=== PATIENT | female | born 1940 | race Caucasian/White ===

== ENCOUNTER 2020-02-14 08:13 | Outpatient (CLI) | payer MEDICARE, SELFPAY ==
--- NOTE | ~2020-02-14 | MM_ITS ---
EXAMINATION: MM screening [facility] BI w [facility] HISTORY: Screening mammogram TECHNIQUE: Craniocaudal and mediolateral oblique 3-D tomosynthesis images were obtained and synthetic 2-D images were generated. CAD analysis was submitted and interpreted. COMPARISON: 01/20/2019, 01/12/2018, 01/07/2017, 12/14/2014, 11/16/2012 bilateral digital screening mammogr am examinations BREAST PARENCHYMAL COMPOSITION: There are scattered areas of fibroglandular density. FINDINGS: There is stable fibroglandular asymmetry including a stable area of irregularity in the out er mid right breast. No interval suspicious mass, architectural distortion, malignant calcification, skin thickening or re traction or significant new or developing density is detected. IMPRESSION: 1. No mammographic evidence of malignancy. 2. Recommend routine screening mammography in one year. BI-RADS Category 2: Benign finding(s). Reviewed, dictated and finalized at location A.
== END 2020-02-14 08:14 | disposition home or self-care (01) ==
PROVIDERS: PCP Internal Medicine; Visit Provider Family Medicine
DX: Z12.31 Encounter for screening mammogram for malignant neoplasm of breast (principal)
CPT/HCPCS: 77063; 77067

== ENCOUNTER 2021-04-03 08:46 | Outpatient (CLI) | payer MEDICARE, SELFPAY ==
--- NOTE | ~2021-04-03 | MM_ITS ---
EXAMINATION: MM screening [facility] BI w [facility]a HISTORY: Screening TECHNIQUE: Craniocaudal and mediolateral oblique 3-D tomosynthesis images were obtained and synthetic 2-D images were generated. CAD analysis was submitted and interpreted. COMPARISON: Comparison to multiple prior studies sequentially, with oldest reviewed study dated 12/14. BREAST PARENCHYMAL COMPOSITION: There are scattered areas of fibroglandular density. FINDINGS: There is no evidence of suspicious mass, calcification, or architectural distortion to sugg est malignancy in either breast. There has been no suspicious interval change. IMPRESSION: 1. No mammographic evidence of malignancy. 2. Recommend routine screening mammography in one year. BI-RADS Category 1: Negative Reviewed, dictated and finalized at location A.
== END 2021-04-03 08:47 | disposition home or self-care (01) ==
PROVIDERS: PCP Family Medicine; Visit Provider Family Medicine
DX: Z12.31 Encounter for screening mammogram for malignant neoplasm of breast (principal)
CPT/HCPCS: 77063; 77067

== ENCOUNTER 2021-07-24 12:38 | Outpatient (CLI) | payer MEDICARE, SELFPAY ==
--- NOTE | ~2021-07-24 | DEXA_ITS ---
Bone Density Report Name: Maya Reaves Age: 81 Sex: Female Ethnicity: White Date of : 1940 Indication: osteopenia; height loss; postmenopausal Referring Provider: Rose Marie Oliver Study: Bone densitometry was performed. Exam Date: July 24, 2021 Accession number: [id number] Bone Density: Region BMD T-score Z-score Classification AP Spine (L1, L2) 0.854 -1.1 1.5 Osteopenia Femoral Neck (Left) 0.630 -2.0 0.4 Osteopenia Total Hip (Left) 0.769 -1.4 0.8 Osteopenia Total Hip Bilateral Avg 0.804 -1.1 1.1 Osteopenia Femoral Neck (Right) 0.624 -2.0 0.4 Osteopenia Total Hip (Right) 0.837 -0.9 1.3 Normal World Health Organization criteria for BMD impression classify patients as: Normal (T-score at or above -1.0), Osteopenia (T-score between -1.0 and -2.5), or Osteoporosis (T-score at or below -2.5). 10-year Fracture Risk(1): Major Osteoporotic Fracture 16% Hip Fracture 4.8% Reported Risk Factors: [place] (), Neck BMD=0.624, BMI=29.4 (1) FRAX(R) Version 3.08. Fracture probability calculated for an untreated patient. Fracture probability may be lower if the patient has received treatment. Previous Exams: Region Exam Age BMD T-score BMD Change BMD Change Date g/cm2 vs Baseline vs Previous AP Spine(L1, L2) 07/24/2021 81 0.854 -1.1 0.017(2.1%)# 0.017(2.0%) 01/12/2018 77 0.837 -1.3 0.000(0.1%)# -0.028(-3.3%)# 09/30/2012 72 0.865 -1.0 0.029(3.4%)# 0.026(3.1%)# 09/29/2010 70 0.839 -1.3 0.002(0.3%) 0.059(7.6%)* 09/27/2008 68 0.780 -1.8 -0.057(-6.8%)* -0.028(-3.5%)* 05/27/2004 64 0.808 -1.6 -0.029(-3.4%)* -0.041(-4.9%)* 03/14/2002 62 0.849 -1.2 0.013(1.5%) 0.013(1.5%) 03/14/2002 62 0.836 -1.3 Total Hip(Left) 07/24/2021 81 0.769 -1.4 -0.066(-7.9%)# -0.070(-8.3%)* 01/12/2018 77 0.839 -0.8 0.004(0.5%)# -0.082(-8.9%)# 09/30/2012 72 0.921 -0.2 0.086(10.4%)# 0.034(3.9%)# 09/29/2010 70 0.887 -0.5 0.052(6.2%)* 0.013(1.4%) 09/27/2008 68 0.874 -0.6 0.039(4.7%)* 0.042(5.1%)* 05/27/2004 64 0.832 -0.9 -0.003(-0.3%) -0.003(-0.3%) 03/14/2002 62 0.835 -0.9 Total Hip(Right) 07/24/2021 81 0.837 -0.9 -0.033(-3.8%)# -0.013(-1.5%) 01/12/2018 77 0.850 -0.8 -0.020(-2.3%)# -0.051(-5.7%)# 09/30/2012 72 0.901 -0.3 0.031(3.6%)# -0.028(-3.1%)# 09/29/2010 70 0.930 -0.1 0.060(6.9%)* 0.038(4.2%)* 09/27/2008 68 0.892 -0.4 0.022(2.5%) 0.025(2.8%) 05/27/2004 64 0.868 -0.6 -0.002(-0.3%) -0.002(-0.3%) 03/14/2002 62 0.870 -0.6
== END 2021-07-24 12:39 | disposition home or self-care (01) ==
LOC: ANHIMG 12:42
PROVIDERS: PCP Family Medicine; Visit Provider Nurse Practitioner
DX: Z78.0 Asymptomatic menopausal state (principal); M85.88 Other specified disorders of bone density and structure, other site; M85.852 Other specified disorders of bone density and structure, left thigh; M85.851 Other specified disorders of bone density and structure, right thigh
CPT/HCPCS: 77080

== ENCOUNTER 2022-05-19 08:28 | Outpatient (CLI) | payer MEDICARE, SELFPAY ==
[2022-05-19 19:58] LABS: Alanine Aminotransferase 25 U/L (6-35); Albumin Level 4.4 g/dL (3.5-5.1); Alkaline Phosphatase 44 U/L (38-126); Anion Gap 11 mmol/L (8-16); Aspartate Amino Transferase 72 U/L (14-36); Bilirubin,Total 0.5 mg/dL (0.2-1.3); Blood Urea Nitrogen 17 mg/dL (7-17); Calcium 9.1 mg/dL (8.4-10.2); Carbon Dioxide 25 mmol/L (22-30); Chloride 99 mmol/L (98-107); Cholesterol 182 mg/dL (0-200); Estimated Glomerular Filt Rate > 60; Glucose 82 mg/dL (65-110); HDL Direct 69 mg/dL; Potassium 3.9 mmol/L (3.4-5.0); Sodium 135 mmol/L (137-145); Triglycerides 159 mg/dL (<150)
[2022-05-19 20:09] LABS: LDL Cholesterol Direct 86 mg/dL
[2022-05-19 20:15] LABS: Basophils Absolute Auto 0.1 K/mm3 (0.0-0.1); Basophils Percent Auto 0.7 % (0.2-1.2); Eosinophils Absolute Auto 0.3 K/mm3 (0-0.3); Eosinophils Percent Auto 2.9 % (0-4.4); Hematocrit 42.3 % (37.0-47.0); Hemoglobin 13.2 g/dL (12.0-15.0); Immature Granulocyte Absolute 0.09 K/mm3 (0.00-0.031); Immature Granulocyte Percent A 0.8 % (0-0.5); Lymphocytes Absolute Auto 4.01 K/mm3 (0.9-3.2); Lymphocytes Percent Auto 37.4 % (18.3-44.2); Mean Corpuscular HGB Conc 31.2 g/dl (32-36); Mean Corpuscular Hemoglobin 30.4 pg (26-34); Mean Corpuscular Volume 97.5 fl (80-100); Monocytes Absolute Auto 0.9 K/mm3 (0.1-0.6); Neutrophils Absolute Auto 5.4 K/mm3 (1.3-6.7); Neutrophils Percent Auto 50.2 % (45.5-73.1); Platelet Count Result 315 k/mm3 (150-375); Red Blood Count 4.34 M/mm3 (4.2-5.4); Red Cell Distribution Width 13.9 % (11.5-14.5); White Blood Count 10.7 K/mm3 (4.5-10.0)
[2022-05-19 20:21] LABS: Vitamin D 25 Hydroxy 50.6 ng/mL
== END 2022-05-19 08:29 | disposition home or self-care (01) ==
LOC: ANHGOSHLAB 08:33
PROVIDERS: PCP Family Medicine; Visit Provider Nurse Practitioner
DX: E55.9 Vitamin D deficiency, unspecified (principal); E53.8 Deficiency of other specified B group vitamins; I10 Essential (primary) hypertension; E78.5 Hyperlipidemia, unspecified
CPT/HCPCS: 36415; 80053; 80061; 82306; 82607; 85025

== ENCOUNTER 2022-05-27 13:42 | Outpatient (CLI) | payer MEDICARE, SELFPAY ==
--- NOTE | ~2022-05-27 | MM_ITS ---
EXAMINATION: MM screening [facility] BI w ilsa HISTORY: Screening mammogram TECHNIQUE: Craniocaudal and mediolateral oblique 3-D tomosynthesis images were obtained and synthetic 2-D images were generated. CAD analysis was submitted and interpreted. COMPARISON: 04/03/2021, 02/14/2020, 01/20/2019, 01/12/2018 BREAST PARENCHYMAL COMPOSITION: There are scattered areas of fibroglandular density. FINDINGS: Again noted are stable asymmetries in the breasts. No suspicious mass, calcification, or ar chitectural distortion are identified in either breast to suggest malignancy. There has been no suspi cious interval change. IMPRESSION: 1. No mammographic evidence of malignancy. 2. Recommend routine screening mammography while the patient remains in good health. BI-RADS Category 2: Benign finding(s). Reviewed, dictated and finalized at location A. IMPRESSION: 1. No mammographic evidence of malignancy. 2. Recommend routine screening mammography while the patient remains in good he alth. BI-RADS Category 2: Benign finding(s).
== END 2022-05-27 13:43 | disposition home or self-care (01) ==
PROVIDERS: PCP Family Medicine; Visit Provider Nurse Practitioner
DX: Z12.31 Encounter for screening mammogram for malignant neoplasm of breast (principal)
CPT/HCPCS: 77063; 77067

== ENCOUNTER 2022-08-31 10:18 | Outpatient (CLI) | payer MEDICARE, SELFPAY ==
--- NOTE | 2022-08-31 10:44 | ECG_ITS ---
Measurements Intervals [place] Rate: 66 P: 31 NM: 166 QRS: -44 QRSD: 135 T: 104 QT: 415 QTc: 435 Interpretive Statements SINUS RHYTHM LEFT AXIS DEVIATION EFT BUNDLE BRANCH BLOCK BASELINE ARTIFACT- I, II, III, AVR, AVL, AVF ABNORMAL ECG NO PREVIOUS ECG AVAILABLE FOR COMPARISON Electronically Signed On 08-31-2022 11:11:53 WATCH AND CLOCK REPAIRER by Marquise Maddox D.O.
== END 2022-08-31 10:19 | disposition home or self-care (01) ==
PROVIDERS: PCP Nurse Practitioner; Visit Provider Orthopaedic Surgery
DX: I10 Essential (primary) hypertension (principal); Z01.818 Encounter for other preprocedural examination; I44.7 Left bundle-branch block, unspecified
CPT/HCPCS: 93005

== ENCOUNTER 2022-09-07 01:05 | Day surgery (SDC) | payer MEDICARE, SELFPAY ==
[2022-08-26 10:45] VITALS: BMI 27.5
--- NOTE | 2022-08-26 10:53 | PC.NURSE ---
Report to the Outpatient Waiting Room, entrance under the green pavilion located off [facility], at time 10:30AM on date 09-07-22. Planned Procedure Time: 12:30AM. Time changes happen often and if your time is changed the preop area will call you the afternoon before. - You and your visitor will be asked to self-screen and do not enter if you have any COVID symptoms. - Only one visitor is requested with a max of two and NO children visitors are allowed at this time. - The patient visitor may be requested to leave or wait in car when not with patient due to distancing restrictions. - A mask is optional within the hospital. Patients may have clear liquids (water, carbonated beverages, clear teas, apple juice) until 3 hours prior to surgery (09:30AM) with a maximum of 20 ounces. - No food from midnight until time of surgery Take the following medications with a SIP of water the morning of surgery: VERAPAMIL Medications to discontinue per physician: VITAMINS Date to take last dose 09-03-22 Please no make-up, nail faroese, hairspray, perfume, deodorant, or body powder the day of surgery. No jewelry (including any body piercings) or valuables the day of surgery, leave them at home. Please take a shower or bath the night before, or the morning of, surgery with an antibacterial soap. Wear comfortable, loose fitting clothing. - Jewelry must be removed prior to entering the operating room. Rings and piercings that are not removed may be cut off. - The hospital will not accept responsibility for valuables. - Please leave all valuables, including medications, at home the day of surgery. If you are going home after surgery, a licensed armor reconnaissance vehicle driver must drive you home. - NO public transportation without another adult if you receive anesthesia. - We recommend that an adult stay with you for 24 hours following discharge. - We also recommend that you do not drive, make important decision, drink alcoholic beverages, or take any drugs that were not prescribed by your health care provider for at least 24 hours after your discharge time. Follow any additional instructions given to you from your surgeon. If you or anyone in your household have experienced Covid symptoms in the past week, please notify your surgeon or the nurse liaison at the phone number below for possible testing. Telephone instructions given to PATIENT and asked if any additional questions and then verbalized understanding. Patient advised to call surgeon office or pre surgery nurse liaison [phone] if any additional questions.
--- NOTE | 2022-09-07 11:53 | WPDANESEPPF ---
Anes - Initial Pre Proc Eval Procedure: Operation Date: 09/07/22 14:00 Proposed Procedures p Right Fourth Trigger Finger Release - Eder Spicer MD Date/Time: 09/07/22 11:53 Surgeon: Eder Spicer MD Pre Op Diagnosis: Rt Fourth Trigger Finger Patient Data Age: 82 Gender: F Height: 1.52 m Weight: 64 kg Allergies Allergy/AdvReac Type Severity Reaction Status Date / Time No Known Allergies Allergy Unknown Verified 09/07/22 12:38 Home Medications Medication Instructions Recorded Confirmed Type cholecalciferol (vitamin D3) 25 25 mcg PO DAILY 11/28/19 08/26/22 History mcg (1,000 unit) capsule lactobacillus combination no.4 3 3,000 mmu cells PO DAILY 05/14/21 08/26/22 History billion cell capsule (Probiotic) verapamil 180 mg tablet,extended 180 mg PO DAILY #90 tabs 12/17/21 08/26/22 Rx release (Calan SR) simvastatin 10 mg tablet 10 mg PO DAILY #90 tabs 08/11/22 08/26/22 Rx budesonide 3 mg 3 mg PO DAILY #30 ea 08/13/22 08/26/22 Rx capsule,delayed,extended release losartan 50 mg tablet 50 mg PO DAILY #90 tabs 08/25/22 08/26/22 Rx calcium carb-Ca gluc 500 mg 1 tablet PO DAILY 08/26/22 08/26/22 History calcium-magnesium ox-Mg gluc 250 mg tablet (Calcium Magnesium) Patient hx anesthesia problems: none Family hx anesthesia problems: none Results Review: All pre-operative results and documents have been reviewed as part of the pre-operative evaluation. [facility] Past Medical History Medical History (Updated 08/20/22 @ 08:19 by Eder Spicer MD) Cataract Chronic allergic rhinitis Collagenous colitis Constipation, chronic Hyperlipidemia LDL goal <100 Hypertension Joint swelling Osteoarthritis, multiple sites Overweight (BMI 25.0-29.9) Plantar fasciitis of left foot Primary hypertension Tendonitis Trigger finger, left ring finger Trigger finger, right little finger Trigger finger, right ring finger Surgical History Surgical History History of carpal tunnel release History of cataract surgery (~2013) History of hand surgery bilateral trigger finger releases, left carpal tunnel release, right first dorsal compartment release Hx of section Family History Family History Mother Family history of arthritis Father Family history of lung cancer Other Family history of malignant neoplasm Family history of osteoporosis Social History Social History Smoking status: Never smoker Second hand tobacco smoke exposure: Yes () Alcohol intake: never Substance use: never Substance use type: does not use Living arrangements: alone Gender identity (if verbalized by the patient): Female Spiritual care concerns: No Anes - Eval Final PreProcedure Day of Procedure 09/07/22 11:54 Patient weight: overweight Heart: regular rate and rhythm Lungs: clear to auscultation Airway: Mallampati scale class II Neurological: alert and oriented Last oral intake: >/= 8 hours ASA classification: II Emergent: no Anesthetic plan: proceed Anesthesia type and monitoring: general GIVS and standard monitoring Results Review: All pre-operative results and documents have been reviewed as part of the pre-operative evaluation. Informed Consent: The patient's anesthetic plan and its attendant risks and benefits were discussed with the patient/family/POA. Questions were solicited and answers provided to the satisfaction of the patient/family/POA.
[2022-09-07] MEDS: ACETAMINOPHEN 500 MG TABLET 1000 MG PO (12:46)
[2022-09-07] MEDS: LACTATED RINGERS 1,000 ML 30 ML IV CONT (13:01)
[2022-09-07] MEDS: KETOROLAC 15 MG/ML VIAL (*BKC) IV PUSH (13:01)
[2022-09-07 13:03] VITALS: BP 171/53; PULSE 68; RESP 16; TEMP 36.2; O2SAT 99
[2022-09-07] MEDS: ceFAZolin 2 GM/D5W 50 ML 2 GM/50 ML BAG IVPB (13:51)
[2022-09-07] MEDS: LIDOCAINE 1% BUFFERED WITH 8.4% SODIUM BICARB 1 ML SYRINGE 5 ML INFILTRATE (14:09)
[2022-09-07 14:23] VITALS: BP 153/66; PULSE 66; RESP 16; O2SAT 100
--- NOTE | 2022-09-07 14:35 | W.PM.PROC2 ---
Procedure Note - Detailed Date of Procedure 09/07/22 Pre-op Diagnosis Rt Fourth Trigger Finger Post-op Diagnosis Same Procedure Performed right fourth digit trigger finger release Surgeon Eder Spicer MD Financial Institution Manager [facility] Anesthesia MAC and Local Description of Procedure The patient was identified and proper site identified. Shewas taken to the operating room and transferred to the OR table placing supine taking care to pad the torso and extremities. IV sedation administered. A nonsterile tourniquet was placed high on the right arm which was prepped and draped in the usual sterile fashion. Several cc of .25 % plain Marcaine was injected into the subcutaneous tissue over the A1 alexus of the right fourth digit. The extremity was exsanguinated and the tourniquet was inflated to 250 mmHg remaining up for about 6 minutes. A longitudinal incision was made over the A1 alexus. Subcutaneous tissue was bluntly dissected down to the alexus while protecting the neurovascular bundles. The A1 alexus was identified and then transected longitudinally in line with the incision and tendons. The tendons were delivered into the wound verifying the adequacy of the release. Hemostasis was carried out. The wound was irrigated with sterile saline. Skin edges were reapproximated with 4-0 nylon suture. Sterile dressing was applied. Tourniquet was released. She tolerated the procedure well and was transferred back to a cart, then taken to the recovery area in stable condition. There were no known intraoperative complications. Estimated blood loss was negligible. Perioperative antibiotics were administered. Estimated Blood Loss -1.0 Tourniquet Time 6 Drains No Packing No Pathology None sent Complications No immediate complications Condition Stable Disposition PACU [facility] Billing Surgery - Charge Forward: Surgery Billing ([id number])
[2022-09-07 14:45] VITALS: BP 150/55; PULSE 57; RESP 20
[2022-09-07 15:15] VITALS: BP 153/66; PULSE 66; RESP 20
== END 2022-09-07 15:18 | disposition home or self-care (01) ==
PROVIDERS: PCP Nurse Practitioner; Visit Provider Orthopaedic Surgery
PROC: (CPT 26055; principal; 2022-09-07 14:00)
DX: M65.341 Trigger finger, right ring finger (principal); I10 Essential (primary) hypertension; E78.5 Hyperlipidemia, unspecified
CPT/HCPCS: 26055; 93005; A9270; J0690; J1100; J1885; J2405; J2704; J3010; J7120

== ENCOUNTER 2022-11-17 09:06 | Outpatient (CLI) | payer MEDICARE, SELFPAY ==
[2022-11-17 19:03] LABS: Basophils Absolute Auto 0.1 K/mm3 (0.0-0.1); Eosinophils Absolute Auto 0.5 K/mm3 (0-0.3); Eosinophils Percent Auto 6.5 % (0-4.4); Hematocrit 42.3 % (37.0-47.0); Hemoglobin 13.4 g/dL (12.0-15.0); Immature Granulocyte Absolute 0.03 K/mm3 (0.00-0.031); Immature Granulocyte Percent A 0.4 % (0-0.5); Lymphocytes Absolute Auto 2.38 K/mm3 (0.9-3.2); Lymphocytes Percent Auto 29.8 % (18.3-44.2); Mean Corpuscular HGB Conc 31.7 g/dl (32-36); Mean Corpuscular Hemoglobin 30.1 pg (26-34); Mean Corpuscular Volume 95.1 fl (80-100); Mean Platelet Volume 10.2 fl (7.4-10.4); Monocytes Absolute Auto 0.7 K/mm3 (0.1-0.6); Monocytes Percent Auto 8.5 % (2.6-8.5); Neutrophils Absolute Auto 4.3 K/mm3 (1.3-6.7); Neutrophils Percent Auto 53.8 % (45.5-73.1); Platelet Count Result 314 k/mm3 (150-375); Red Blood Count 4.45 M/mm3 (4.2-5.4); Red Cell Distribution Width 13.5 % (11.5-14.5)
[2022-11-17 19:14] LABS: Alanine Aminotransferase 22 U/L (6-35); Albumin Level 4.4 g/dL (3.5-5.1); Alkaline Phosphatase 56 U/L (38-126); Anion Gap 9 mmol/L (8-16); Aspartate Amino Transferase 25 U/L (14-36); Bilirubin,Total 0.5 mg/dL (0.2-1.3); Blood Urea Nitrogen 12 mg/dL (7-17); Calcium 9.1 mg/dL (8.4-10.2); Carbon Dioxide 26 mmol/L (22-30); Chloride 99 mmol/L (98-107); Cholesterol 167 mg/dL (0-200); Estimated Glomerular Filt Rate > 60; Glucose 78 mg/dL (65-110); HDL Direct 57 mg/dL; Sodium 134 mmol/L (137-145); Triglycerides 146 mg/dL (<150)
[2022-11-17 19:24] LABS: LDL Cholesterol Direct 73 mg/dL
== END 2022-11-17 09:07 | disposition home or self-care (01) ==
LOC: ANHGOSHLAB 09:10
PROVIDERS: PCP Family Medicine; Visit Provider Nurse Practitioner
DX: E78.5 Hyperlipidemia, unspecified (principal); I10 Essential (primary) hypertension
CPT/HCPCS: 36415; 80053; 80061; 85025

== ENCOUNTER 2023-04-08 13:25 | Outpatient (CLI) | payer MEDICARE, SELFPAY ==
--- NOTE | 2023-04-08 13:34 | ECHO_ITS ---
Patient Info Name: Maya Reaves Age: 83 years : 1940 Gender: Female Ht: 60 in Wt: 130 lbs BSA: 1.59 m2 HR: 66 bpm BP: 136 / 77 mmHg Technical Quality: Excellent Exam Date: 04/08/2023 1:37 PM Exam Location: [facility] Pulmonary Patient Status: Outpatient Admit Date: 04/08/2023 Staff Ordering Physician: Marilu Kellogg APRN Head Waiter: Kaleigh Salas RDCS Attending Provider: Marilu Kellogg APRN Referring Physician: Bess LORENZ; Exam Type: CA echo doppler color flow Study Info Indications R60.0 - Localized edema Complete two-dimensional, color flow and Doppler transthoracic echocardiogram is performed. Strain analysis performed. Summary 1. Complete two-dimensional, color flow and Doppler transthoracic echocardiogram is performed. 2. Left ventricular chamber dimension is normal. 3. Left ventricular systolic function is normal, estimated at 60-65%. 4. The left ventricular diastolic function is grade I diastolic dysfunction. 5. E/e' 13 is mildly elevated. 6. Global longitudinal strain is normal at -17.2%. 7. Left atrial chamber dimension is moderately enlarged. 8. There is mild mitral valve regurgitation. 9. No pulmonary hypertension, estimated pulmonary arterial systolic pressure is 31 mmHg. Left Ventricle E/e' 13 is mildly elevated. Global longitudinal strain is normal at -17.2%. Left ventricular chamber dimension is normal. Left ventricular systolic function is normal, estimated at 60-65%. The left ventricular diastolic function is grade I diastolic dysfunction. Right Ventricle Right ventricular systolic function is normal and with normal TAPSE 2.5 cm. Right ventricular chamber dimension is normal. Left Atria Left atrial chamber dimension is moderately enlarged. Right Atria Right atrial chamber dimension is normal. Aortic Valve The aortic valve is trileaflet. There is no aortic valve stenosis. There is no aortic valve regurgitation. Pulmonic Valve There is no pulmonic regurgitation. Mitral Valve There is no mitral valve stenosis. There is mild mitral valve regurgitation. Tricuspid Valve There is no tricuspid valve regurgitation. No pulmonary hypertension, estimated pulmonary arterial systolic pressure is 31 mmHg. Pericardium/Pleural There is no pericardial effusion. Inferior Vena Cava Normal inferior vena cava with >50% collapse upon inspiration consistent with normal right atrial pressure, 5 mmHg. Aorta The aortic root size at the sinus of Valsalva is normal. Left Ventricular Outflow Tract Name Value Normal LVOT 2D LVOT Diameter 1.9 cm LVOT Doppler LVOT Peak Gradient 4 mmHg LVOT Mean Gradient 3 mmHg LVOT VTI 24 cm LVOT VTI/AV VTI Ratio 0.8 LVOT Stroke Volume 66 ml LVOT CO 4.1 l/min LVOT CI 2.6 l/min/m2 Pulmonic Valve Name Value Normal RVOT Doppler
== END 2023-04-08 13:26 | disposition home or self-care (01) ==
LOC: ANHCARD 13:26
PROVIDERS: PCP Family Medicine; Visit Provider Nurse Practitioner Family
DX: R60.0 Localized edema (principal); I10 Essential (primary) hypertension; I34.0 Nonrheumatic mitral (valve) insufficiency
CPT/HCPCS: 93306

== ENCOUNTER 2023-04-30 10:19 | Emergency (ER) | payer MEDICARE, SELFPAY ==
[2023-04-30 10:30] VITALS: BP 154/75; PULSE 77; RESP 18; TEMP 36.6; O2SAT 100
--- NOTE | 2023-04-30 10:31 | ED.FEMALEGU ---
HPI - Female Genitourinary General Chief complaint: Urogenital-Female Stated complaint: Female Urogenital Time Seen by Provider: 04/30/23 11:01 Source: patient, RN notes reviewed and old records reviewed Mode of arrival: ambulatory Limitations: no limitations History of Present Illness HPI Narrative: 83-year-old female presents to the [facility] with concerns of possible UTI due to low suprapubic discomfort. Patient has a history of colitis. Has been changing her budesonide dosing. States that she had diarrhea on Wednesday and Wednesday. Denies nausea vomiting. Denies chest pain. Denies urinary frequency, urgency or burning. Reports the cramping started on Wednesday, 2 days ago Related Data Home Medications Medication Instructions Recorded Confirmed cholecalciferol (vitamin D3) 25 25 mcg PO DAILY 11/28/19 04/30/23 mcg (1,000 unit) capsule lactobacillus combination no.4 3 3,000 mmu cells PO DAILY 05/14/21 04/30/23 billion cell capsule (Probiotic) calcium carb-Ca gluc 500 mg 1 tablet PO DAILY 08/26/22 04/30/23 calcium-magnesium ox-Mg gluc 250 mg tablet (Calcium Magnesium) Allergies Allergy/AdvReac Type Severity Reaction Status Date / Time No Known Allergies Allergy Unknown Verified 04/30/23 10:29 Review of Systems Review of Systems: All systems reviewed & are unremarkable except as noted in HPI and below Constitutional: Constitutional: Reports no additional constitutional complaints Eyes: Eyes: Reports no additional eye complaints ENT: Reports system reviewed and no additional complaints, except as documented Cardiovascular: Cardiovascular: Reports no additional cardiovascular complaints, Denies chest pain and Denies dyspnea Respiratory: Respiratory: Reports no additional respiratory complaints, Denies chest congestion, Denies cough and Denies dyspnea Gastrointestinal: Gastrointestinal: Reports as per HPI, Denies abdominal pain, Denies nausea and Denies vomiting Genitourinary: Genitourinary: Reports no additional female genitourinary complaints Musculoskeletal: Musculoskeletal: Reports no additional musculoskeletal complaints Integumentary/Breasts: Skin/Breast: Reports system reviewed and no additional complaints, except as docu Neurologic: Reports system reviewed and no additional complaints, except as documented Psychiatric: Psychiatric: Reports no additional psychiatric complaints Allergic/Immunologic: Allergic/Immunologic: Reports no additional allergic/immunologic complaints PMFSH Past Medical History Medical History Cataract Chronic allergic rhinitis Collagenous colitis Constipation, chronic Edema of both legs Enlarged atria Hyperlipidemia LDL goal <100 Hypertension Inflammatory arthritis Joint swelling Osteoarthritis, multiple sites Overweight (BMI 25.0-29.9) Plantar fasciitis of left foot Primary hypertension Tendonitis Trigger finger, left ring finger Trigger finger, right little finger Surgical History Surgical History History of carpal tunnel release History of cataract surgery (~2013) History of hand surgery bilateral trigger finger releases, left carpal tunnel release, right first dorsal compartment release Hx of section Trigger finger, right ring finger Right fourth trigger finger release September 07, 2022 Family History Family History Mother Family history of arthritis Father Family history of lung cancer Other Family history of malignant neoplasm Family history of osteoporosis Social History Social History Smoking status: Never smoker Second hand tobacco smoke exposure: Yes () Alcohol intake: never Substance use: never Substance use type: does not use Lack of Transportation: No Lack of Food: Never True Current
== END 2023-04-30 11:10 | disposition home or self-care (01) ==
PROVIDERS: Emergency Provider Nurse Practitioner; PCP Nurse Practitioner Family
DX: K52.9 Noninfective gastroenteritis and colitis, unspecified (principal); E78.5 Hyperlipidemia, unspecified; I10 Essential (primary) hypertension; M15.9 Polyosteoarthritis, unspecified
CPT/HCPCS: 81003; 99212; G0463

== ENCOUNTER 2023-05-17 19:26 | Inpatient (IN) | payer MEDICARE, SELFPAY ==
--- NOTE | ~2023-05-17 | XR_ITS ---
EXAM: XR hip LT 1V DATE: 05/18/2023 17:46 HISTORY: POST-OP LEFT HIP . COMPARISON: 05/17/2023. FINDINGS/IMPRESSION: Expected postsurgical changes, status post left hip arthroplasty, with no radiog raphic evidence of procedure or hardware related complication. Reviewed, dictated and finalized at location K.
--- NOTE | ~2023-05-17 | XR_ITS ---
EXAM: XR hip LT 2V w AP pelvis DATE: 05/17/2023 20:27 HISTORY: fall . COMPARISON: 05/04/2019 and 09/22/2018. FINDINGS: Decreased mineralization. Transverse fracture through the left femoral neck with medial an gulation and one half bone width superior displacement. No lytic or blastic lesion. Joint spaces are lumbar degenerative disc disease. Degenerative changes in the bilateral hips and pubic symphysis. No erosion or periosteal change. Soft tissues within normal limits. IMPRESSION: Transverse left femoral neck fracture with medial angulation and superior displacement. Reviewed, dictated and finalized at location K. IMPRESSION: Transverse left femoral neck fracture with medial angulation and wheat perior displacement.
--- NOTE | ~2023-05-17 | XR_ITS ---
XR chest 2V 05/21/2023 10:47 Indication: Leukocytosis Procedure: 2 view chest Comparison: 05/17/2023 Findings: Heart size normal. No focal air space disease, pulmonary edema, pleural effusion or suspect ed pneumothorax. Impression: 1: No acute cardiopulmonary disease. Reviewed, dictated and finalized at location B. Impression: 1: No acute cardiopulmonary disease.
--- NOTE | ~2023-05-17 | XR_ITS ---
EXAMINATION: XR chest 1V Exam Date/Time: 05/17/2023 20:20 CDT HISTORY: preop likely L hip fx Comparison: None. RESULT: Lines, tubes, and devices: None. Lungs and pleura: Diffuse reticular and reticular nodular opacities. Cardiomediastinal silhouette: Unremarkable. Other: No acute osseous or upper abdominal finding. IMPRESSION: Mild initial edema and/or respiratory bronchiolitis. Reviewed, dictated and finalized at location K.
[2023-05-17 19:27] VITALS: BP 166/70; PULSE 66; RESP 18; TEMP 36.8; O2SAT 95
--- NOTE | 2023-05-17 20:07 | ECG_ITS ---
Measurements Intervals [place] Rate: 64 P: 46 ND: 151 QRS: -46 QRSD: 130 T: 82 QT: 415 QTc: 431 Interpretive Statements SINUS RHYTHM LEFT AXIS DEVIATION LEFT BUNDLE BRANCH BLOCK BASELINE ARTIFACT- I, III, AVR, AVL ABNORMAL ECG COMPARED TO ECG 08/31/2022 10:56:53 NO SIGNIFICANT CHANGES Electronically Signed On 05-17-2023 21:51:07 CDT by Marquise Maddox D.O.
--- NOTE | 2023-05-17 21:06 | ED.FALL ---
HPI - Fall General Chief Complaint: Fall Stated Complaint: FALL; HIP PAIN Time Seen by Provider: 05/17/23 19:48 Source: patient Mode of arrival: EMS Limitations: no limitations History of Present Illness HPI Narrative: Patient is an 83 y/o female who presents to the ED via EMS with c/o a fall. Patient reports she was walking her dog tonight when she tripped in a quilt sewer gutter and rolled her ankle, causing her to fall onto her left side. She landed directly onto her left hip. She was unable to ambulate or get off the ground afterwards, so EMS was called. She complains of severe pain to her left hip. She did sustain some small abrasions to her left elbow, but denies pain associated with this. She did not hit her head or lose consciousness. Denies any other areas of pain. Denies numbness or tingling. Related Data Home Medications Medication Instructions Recorded Confirmed cholecalciferol (vitamin D3) 25 25 mcg PO DAILY 11/28/19 05/18/23 mcg (1,000 unit) capsule lactobacillus combination no.4 3 3,000 mmu cells PO DAILY 05/14/21 05/18/23 billion cell capsule (Probiotic) calcium carb-Ca gluc 500 mg 1 tablet PO DAILY 08/26/22 05/18/23 calcium-magnesium ox-Mg gluc 250 mg tablet (Calcium Magnesium) simvastatin 10 mg tablet 10 mg PO HS 05/18/23 05/18/23 Allergies Allergy/AdvReac Type Severity Reaction Status Date / Time No Known Allergies Allergy Unknown Verified 05/17/23 23:06 Review of Systems Review of Systems: CONSTITUTIONAL: Denies fever, chills, or sweats. CARDIOVASCULAR: Denies chest pain. RESPIRATORY: Denies dyspnea. GASTROINTESTINAL: Denies abdominal pain, nausea, vomiting. MUSCULOSKELETAL: See HPI. NEUROLOGIC: Denies HI, LOC, tingling, numbness, or weakness. All systems reviewed & are unremarkable except as noted in HPI and below PMFSH Past Medical History Medical History Cataract Chronic allergic rhinitis Collagenous colitis Constipation, chronic Edema of both legs Enlarged atria Hyperlipidemia LDL goal <100 Hypertension Inflammatory arthritis Joint swelling Osteoarthritis, multiple sites Overweight (BMI 25.0-29.9) Plantar fasciitis of left foot Primary hypertension Tendonitis Trigger finger, left ring finger Trigger finger, right little finger Surgical History Surgical History History of carpal tunnel release History of cataract surgery (~2013) History of hand surgery bilateral trigger finger releases, left carpal tunnel release, right first dorsal compartment release Hx of section Trigger finger, right ring finger Right fourth trigger finger release September 07, 2022 Family History Family History Mother Family history of arthritis Father Family history of lung cancer Other Family history of malignant neoplasm Family history of osteoporosis Social History Social History Smoking status: Never smoker Second hand tobacco smoke exposure: No Alcohol intake: never Substance use: never Substance use type: does not use Lack of Transportation: No Lack of Food: Never True Current Housing: I Have Housing Concerned About Future Housing: No Difficulty Paying Gas/Electric Bills: No Difficulty Paying for Meds: No Currently Unemployed: No Education: High School Diploma/GED Difficulty w/ Childcare or Family Care: No Living arrangements: alone Gender identity (if verbalized by the patient): Female Spiritual care concerns: No Exam Narrative: GENERAL: Elderly, well-nourished, non-toxic, in no acute distress. HEAD: Normocephalic, atraumatic. NECK: Supple. No adenopathy, no masses. RESPIRATORY: Airway patent, respirations nonlabored. Clear to auscultation bilaterally, no rales, rhonchi, wheezing.
[2023-05-17] MEDS: ONDANSETRON INJ 4 MG/2 ML VIAL IV PUSH ×2 (21:14→23:58)
[2023-05-17] MEDS: MORPHINE SULFATE (*CRX) 4 MG/ML INJ IV PUSH (21:14)
[2023-05-17 21:26] LABS: Basophils Percent Auto 0.3 % (0.2-1.2); Eosinophils Absolute Auto 0.1 K/mm3 (0-0.3); Eosinophils Percent Auto 0.7 % (0-4.4); Hematocrit 38.1 % (37.0-47.0); Hemoglobin 12.1 g/dL (12.0-15.0); Immature Granulocyte Percent A 0.8 % (0-0.5); Lymphocytes Absolute Auto 2.69 K/mm3 (0.9-3.2); Lymphocytes Percent Auto 20.4 % (18.3-44.2); Mean Corpuscular HGB Conc 31.8 g/dl (32-36); Mean Corpuscular Volume 97.7 fl (80-100); Mean Platelet Volume 9.3 fl (7.4-10.4); Monocytes Percent Auto 7.3 % (2.6-8.5); Neutrophils Absolute Auto 9.3 K/mm3 (1.3-6.7); Neutrophils Percent Auto 70.5 % (45.5-73.1); Platelet Count Result 288 k/mm3 (150-375); Red Cell Distribution Width 13.9 % (11.5-14.5); White Blood Count 13.2 K/mm3 (4.5-10.0)
[2023-05-17 21:36] LABS: Alanine Aminotransferase 24 U/L (6-35); Albumin Level 3.7 g/dL (3.5-5.1); Alkaline Phosphatase 36 U/L (38-126); Anion Gap 5 mmol/L (8-16); Aspartate Amino Transferase 25 U/L (14-36); Bilirubin,Total 0.4 mg/dL (0.2-1.3); Blood Urea Nitrogen 24 mg/dL (7-17); Calcium 8.3 mg/dL (8.4-10.2); Carbon Dioxide 27 mmol/L (22-30); Chloride 105 mmol/L (98-107); Estimated CRCL calculation 51 ml/min; Estimated Glomerular Filt Rate > 60; Glucose 110 mg/dL (65-110); Potassium 4.1 mmol/L (3.4-5.0); Sodium 137 mmol/L (137-145)
[2023-05-17 21:38] LABS: Partial Thromboplastin Time 26.5 SECONDS (22.3-36.8); Prothrombin Time 13.2 Seconds (11.1-14.7)
[2023-05-17 23:05] VITALS: BP 161/56; PULSE 68; RESP 18; O2SAT 96
[2023-05-17 23:16] LABS: Appearance Urine Cloudy (Clear); Bacteria Urine None Seen /hpf; Bilirubin Urine Negative (Negative); Blood Urine Negative (Negative); Color Urine Yellow (Yellow); Glucose Urine UA Negative (Negative); Ketones Urine Negative (Negative); Leukocyte Esterase Ur Negative LEU/UL (Negative); Nitrate Urine Negative (Negative); Non Pathogenic Casts 0-2; Protein Urine Negative (Negative); RBC Urine 0-2 /hpf (0-2); Squamous Epithelial Cell Urine None seen /hpf (Few); Urobilinogen Urine 0.2 mg/dL (<2.0); WBC Urine 0-5 /hpf
[2023-05-17 23:17] LABS: Add Urine Microscopic? YES
[2023-05-17] MEDS: HYDROmorphone HCL INJ (*CRX) 1 MG/ML SYR IV PUSH (23:27)
[2023-05-18] VITALS (17 sets, daily range): BP systolic 110–187; BP diastolic 50–90; PULSE 68–82; RESP 16–20; TEMP 36.1–37.3; O2SAT 91–100; BMI 28.1
--- NOTE | 2023-05-18 00:56 | ADMGEN ---
This patient, Maya Reaves, was admitted to [facility] Surg Room 305-02. Patient/family oriented to hospital policies and general routines including ID bracelet, bed and alarms, visiting hours, pain management, procedures, bathroom and other care routines, personal items, smoking policy, room service/diet, and visiting hours. Information on how to activate the Rapid Response Team has been discussed. Patient/Family are encouraged to report perceived risks to care and to ask questions if they do not understand what they are told or what they should do.
[2023-05-18] MEDS: ONDANSETRON INJ 4 MG/2 ML VIAL IV PUSH ×3 (04:27→12:49)
[2023-05-18] MEDS: MORPHINE SULFATE (*CRX) 4 MG/ML INJ IV PUSH ×2 (05:15→08:57)
[2023-05-18 06:34] LABS: NT Pro B Type Natriuretic Pept 286 pg/mL (19.9-100)
--- NOTE | 2023-05-18 06:49 | PM.IMHP ---
H&P: HPI History of Present Illness Date/Time: 05/18/23 06:49 Chief Complaint: Left hip pain Narrative: 83-year-old female with a past medical history of collagenous colitis, chronic left bundle-branch block, diastolic dysfunction, essential hypertension, dyslipidemia and osteopenia who presented to the ER after having a fall while walking her dog and landing on her left hip. She reports that she was walking towards the edge of the sidewalk when she stepped onto the occur portion of the curb and slipped off. She rolled her right ankle and caused her to fall to her left side landing onto her left hip. She was unable to ambulate or get up due to severe pain. She reports as long she does not move her pain is an 8/10 in intensity. She has intact sensation of the lower extremity. Her extremity was noted to be externally rotated. She did have an abrasion to her elbow will but denies any significant pain of her arm. She did not hit her head or lose consciousness. She denies any dizziness, or near syncopal symptoms. She has developed some nausea since midnight but has not had any significant vomiting. She does have history of collagenous colitis and reports her last bowel movement was 2 days ago. She had a Condon catheter placed in the ER due to her her pain and immobility. She reports that recently she had an echocardiogram due to some lower extremity swelling. Her echo demonstrated EF of 60 65% with grade 1 diastolic dysfunction. She states that she was scheduled to have a stress test on the to rule out any cardiac ischemia. She has not been having any dyspnea on exertion or chest pain. She has been following with Dr. Maddox. Review of Systems Review of Systems: 12 systems were reviewed with pertinent positives and negatives per HPI. Except as documented in the HPI, all other systems were reviewed and are negative. [facility] Past Medical History Medical History (Updated 05/18/23 @ 07:02 by Clara Maya DO) Chronic allergic rhinitis Collagenous colitis Constipation, chronic Hyperlipidemia LDL goal <100 Hypertension Inflammatory arthritis Osteoarthritis, multiple sites Osteopenia DEXA scan 2020 Overweight (BMI 25.0-29.9) Plantar fasciitis of left foot Primary hypertension Tendonitis Trigger finger, left ring finger Trigger finger, right little finger Vitamin D deficiency Surgical History Surgical History History of carpal tunnel release History of cataract surgery (~2013) History of hand surgery bilateral trigger finger releases, left carpal tunnel release, right first dorsal compartment release Hx of section Trigger finger, right ring finger Right fourth trigger finger release September 07, 2022 Family History Family History Mother Family history of arthritis Father Family history of lung cancer Other Family history of malignant neoplasm Family history of osteoporosis Social History Social History (Updated 05/18/23 @ 07:06 by Clara Maya DO) Social History: Patient has been since approximately 2011. She was for approximately 50 years prior to her 's . Her son still runs the [employer]. She is a lifelong nonsmoker and does not drink alcohol. Code status: Full code [facility] power of employment attorney: Ángel Reaves (son) Smoking status: Never smoker Second hand tobacco smoke exposure: No Alcohol intake: never Substance use: never Substance use type: does not use Lack of Transportation: No Lack of Food: Never True Current Housing: I Have Housing Concerned About Future Housing: No Difficulty Paying Gas/Electric Bills: No Difficulty Paying for Meds: No Currently Unemployed: No Education: High School Diploma/GED Difficulty w/ Childcare or Family Care: No Living arrangements: alone Gender identity
--- NOTE | 2023-05-18 07:48 | PM.CNCAR ---
Assessment and Plan Assessment and plan (1) Preop cardiovascular exam: Code(s): Z01.810 - Encounter for preprocedural cardiovascular examination Status: Acute Assessment and Plan: Functional status>4 METs. May proceed to noncardiac surgery which is left hip surgery without further cardiac workup. (2) Diastolic dysfunction: Code(s): I51.89 - Other ill-defined heart diseases Status: Acute Assessment and Plan: Stable. Euvolemic. Restrict fluid intake to no more than 1.5-2 l/day. (3) LBBB (left bundle branch block): Code(s): I44.7 - Left bundle-branch block, unspecified Status: Acute (4) Edema of both legs: Code(s): R60.0 - Localized edema Status: Acute Assessment and Plan: Mild. (5) Hyperlipidemia LDL goal <100: Code(s): E78.5 - Hyperlipidemia, unspecified Status: Acute (6) Primary hypertension: Code(s): I10 - Essential (primary) hypertension Status: Acute Assessment and Plan: High, exacerbated by hip pain. Resume home medication. History of Present Illness History of Present Illness Consult date/time: 05/18/23 07:48 Reason For Visit: L Femoral Neck Fracture/GLF Narrative: 83 yr old woman who is my regular cardiology patient and a patient of Dr. Jasso presents to ER after a fall. She has a history of LBBB, diastolic dysfunction, hypertension and dyslipidemia. Reports she was walking her dog yesterday and tripped over a sewer digger gutter and fell on her hip. Has 8/10 left hip pain now. She had edema several months ago that does get worse at end of the day. She drinks a lot of water a day and was advised to restrict it to 1.5 l/day. She can walk a few blocks prior to fall yesterday. Denies chest pain, orthopnea, PND, dizziness, palpitations. Cardiovascular Procedures Echo/MUGA:: 04/08/23 Echo: EF 60-65%, grade I diastolic dysfunction (E/e' 13), mod LAE, mild MR. Electrophysiology:: 12/29/22 EKG: Sinus rhythm, LBBB. Review of Systems Review of Systems: All systems reviewed & are unremarkable except as noted in HPI and below Constitutional: Constitutional: Reports as per HPI, Denies chills and Denies fever(s) Cardiovascular: Cardiovascular: Reports as per HPI, Denies chest pain and Denies irregular heart rhythm Respiratory: Respiratory: Reports as per HPI and Denies dyspnea Gastrointestinal: Gastrointestinal: Reports as per HPI, Denies abdominal pain and Reports nausea Genitourinary: Genitourinary: Reports as per HPI and Denies dysuria Musculoskeletal: Musculoskeletal: Reports as per HPI and Reports arthralgias Neurologic: Reports as per HPI, Denies dizziness and Denies syncope [facility] Past Medical History Medical History (Updated 05/18/23 @ 07:52 by Marquise Maddox DO) Chronic allergic rhinitis Collagenous colitis Constipation, chronic Hyperlipidemia LDL goal <100 Hypertension Inflammatory arthritis Osteoarthritis, multiple sites Osteopenia DEXA scan 2020 Overweight (BMI 25.0-29.9) Plantar fasciitis of left foot Primary hypertension Tendonitis Trigger finger, left ring finger Trigger finger, right little finger Vitamin D deficiency Surgical History Surgical History History of carpal tunnel release History of cataract surgery (~2013) History of hand surgery bilateral trigger finger releases, left carpal tunnel release, right first dorsal compartment release Hx of section Trigger finger, right ring finger Right fourth trigger finger release September 07, 2022 Family History Family History Mother Family history of arthritis Father Family history of lung cancer Other Family history of malignant neoplasm Family history of osteoporosis Social History Social History (Updated 05/18/23 @ 07:06 by Clara Maya DO) Social History: Patient has been since approximately
[2023-05-18] MEDS: ACIDOPHILUS/BULGARICUS CHEWABLE TABLET 1 TABLET PO (08:47)
[2023-05-18] MEDS: VERAPAMIL HCL 180 MG TABLET ER PO (08:47)
[2023-05-18] MEDS: BUDESONIDE 3 MG CAP.SR.24H 9 MG PO (08:47)
[2023-05-18] MEDS: CHOLECALCIFEROL 1,000 UNITS TABLET 1000 UNITS PO (08:48)
--- NOTE | 2023-05-18 10:06 | PM.CNOR ---
Assessment and Plan Assessment and plan (1) Fracture of femoral neck, left: Qualifiers: Encounter type: initial encounter Fracture type: closed Qualified Code(s): S72.002A - Fracture of unspecified part of neck of left femur, initial encounter for closed fracture Code(s): S72.002A - Fracture of unspecified part of neck of left femur, initial encounter for closed fracture Status: Acute Assessment and Plan: History, exam and radiographs reviewed with the patient. Radiographs of the left hip from the emergency room reveal transverse left femoral neck fracture with medial angulation and superior displacement. The fracture type and injury as well as radiographs discussed with the patient and family. Operative and nonoperative treatment options reviewed. The patient/family's questions were answered. The patient/family desires operative treatment. Discussed Left Bipolar Hip Replacement Risks of surgery including but not limited to neurovascular damage, wound complications, blood clot, pulmonary embolus, stroke, myocardial infarction, anesthetic risks up to and including were reviewed. Continued pain and possible dysfunction were explained. No guarantees were offered. The patient understands and wishes to proceed. Plan: Left Bipolar Hip Replacement by Dr. Reid Obtain consent. NPO. Hold anticoagulation. Incentive spirometer. Bed rest. Pain control in the interim. Dispo: Patient will likely require acute inpatient rehab postoperatively. Care coordination consult recommended. (2) Fall from ground level: Code(s): W18.30XA - Fall on same level, unspecified, initial encounter Status: Acute (3) Diastolic dysfunction: Code(s): I51.89 - Other ill-defined heart diseases Status: Acute Assessment and Plan: Patient has been cleared by Dr. Maddox (4) LBBB (left bundle branch block): Code(s): I44.7 - Left bundle-branch block, unspecified Status: Acute (5) Enlarged atria: Code(s): I51.7 - Cardiomegaly Status: Acute Plan Reviewed history, exam and radiographic findings with attending physician and consult surgeon, Dr. Reid. Agrees with current plan as indicated above. No further recommendations at this time. History of Present Illness HPI Consult date: 05/18/23 Chief complaint: L Femoral Neck Fracture/GLF Narrative: 83-year-old female admitted with a left femoral neck fracture. The patient was walking her dog yesterday when she stepped into a drainage ditch and fell to the ground. She lives at home independently and ambulates independently. She denies loss of consciousness or hitting her head prior to her fall. She was transported to the emergency room and radiographic findings of the left hip revealed a displaced left femoral neck fracture. She was admitted to the hospital for orthopedic evaluation and surgical intervention. Review of Systems Constitutional: Constitutional: Reports no additional constitutional complaints, Denies chills, Denies fatigue, Denies fever(s), Denies headache(s) and Denies weakness Eyes: Eyes: Denies change in vision ENT: Reports Normal hearing present and Denies headache(s) Cardiovascular: Cardiovascular: Denies chest pain and Denies dyspnea Respiratory: Respiratory: Denies cough, Denies dyspnea and Denies wheezing Gastrointestinal: Gastrointestinal: Denies constipation, Denies diarrhea, Denies nausea and Denies vomiting Genitourinary: Genitourinary: Denies hematuria, Denies dysuria and Denies urinary urgency Musculoskeletal: Musculoskeletal: Reports as per HPI, Denies numbness and Denies tingling Integumentary/Breasts: Skin/Breast: Reports as per HPI Neurologic: Reports as per HPI, Reports Normal hearing present, Denies headache(s), Denies numbness, Denies tingling and Denies weakness Psychiatric: Psychiatric: Reports no additional psychiatric complaints Endocrine: Endocrine: Reports no addit
--- NOTE | 2023-05-18 10:48 | WPDHPUPDATE1 ---
History and Physical Update Update Date/Time: 05/18/23 10:48 History and Physical has been reviewed, including an updated exam of the patient. There are NO changes in the patient's condition. Risks, benefits, and alternatives have been discussed and questions answered. Patient agrees to proceed with procedure.
[2023-05-18] MEDS: LACTATED RINGERS 1,000 ML 30 ML IV CONT ×2 (14:00→17:35)
[2023-05-18] MEDS: TRANEXAMIC ACID 1,000MG/ISO100 1,000 MG/100 ML BAG 200 MG IVPB (14:00)
--- NOTE | 2023-05-18 14:03 | WPDANESEPPF ---
Anes - Initial Pre Proc Eval Procedure: Operation Date: 05/18/23 15:00 Proposed Procedures p Left Bipolar Hip - Hung Reid MD Date/Time: 05/18/23 14:03 Surgeon: Clara Maya DO Pre Op Diagnosis: L Femoral Neck Fracture/GLF Patient Data Age: 83 Gender: F Height: 1.52 m Weight: 65.4 kg Last Vital Signs Temp 99.1 F 05/18/23 06:00 Pulse 77 05/18/23 06:00 Resp 18 05/18/23 06:00 BP 184/80 H 05/18/23 06:00 Pulse Ox 94 05/18/23 09:25 O2 Del Method Nasal Cannula 05/18/23 09:25 O2 Flow Rate 1 05/18/23 09:25 FiO2 24 05/18/23 09:25 Allergies Allergy/AdvReac Type Severity Reaction Status Date / Time No Known Allergies Allergy Unknown Verified 05/17/23 23:06 Home Medications Medication Instructions Recorded Confirmed Type cholecalciferol (vitamin D3) 25 25 mcg PO DAILY 11/28/19 05/18/23 History mcg (1,000 unit) capsule lactobacillus combination no.4 3 3,000 mmu cells PO DAILY 05/14/21 05/18/23 History billion cell capsule (Probiotic) calcium carb-Ca gluc 500 mg 1 tablet PO DAILY 08/26/22 05/18/23 History calcium-magnesium ox-Mg gluc 250 mg tablet (Calcium Magnesium) losartan 50 mg tablet 50 mg PO BID #180 tabs 12/14/22 05/18/23 Rx verapamil 180 mg tablet,extended 180 mg PO DAILY #90 tabs 02/09/23 05/18/23 Rx release (Calan SR) budesonide 3 mg 9 mg PO DAILY 1 month #90 ea 04/27/23 05/18/23 Rx capsule,delayed,extended release simvastatin 10 mg tablet 10 mg PO HS 05/18/23 05/18/23 History Laboratory Tests 05/17/23 05/17/23 05/18/23 21:14 23:03 05:47 WBC 13.2 H K/mm3 (4.5-10.0) RBC 3.90 L M/mm3 (4.2-5.4) Hgb 12.1 g/dL (12.0-15.0) Hct 38.1 % (37.0-47.0) MCV 97.7 fl (80-100) MCH 31.0 pg (26-34) MCHC 31.8 L g/dl (32-36) RDW 13.9 % (11.5-14.5) Plt Count 288 k/mm3 (150-375) MPV 9.3 fl (7.4-10.4) Immature Gran % (Auto) 0.8 H % (0-0.5) Neut % (Auto) 70.5 % (45.5-73.1) Lymph % (Auto) 20.4 % (18.3-44.2) [place] % (Auto) 7.3 % (2.6-8.5) Eos % (Auto) 0.7 % (0-4.4) Baso % (Auto) 0.3 % (0.2-1.2) Lymph # (Auto) 2.69 K/mm3 (0.9-3.2) [place] # (Auto) 1.0 H K/mm3 (0.1-0.6) Eos # (Auto) 0.1 K/mm3 (0-0.3) Baso # (Auto) 0.0 K/mm3 (0.0-0.1) Abs Immat Gran (auto) 0.10 H K/mm3 (0.00-0.031) Absolute Neuts (auto) 9.3 H K/mm3 (1.3-6.7) Absolute Nucleated RBC 0.0 K/mm3 (0.0-0.012) Nucleated RBC % 0.0 % (0.0-0.2) PT 13.2 Seconds (11.1-14.7) INR 1.0 APTT 26.5 SECONDS (22.3-36.8) Sodium 137 mmol/L (137-145) Potassium 4.1 mmol/L (3.4-5.0) Chloride 105 mmol/L (98-107) Carbon Dioxide 27 mmol/L (22-30) Anion Gap 5 L mmol/L (8-16) BUN 24 H D mg/dL (7-17) Creatinine 0.60 L mg/dL (0.7-1.0) Estim Creat Clear Calc 51 ml/min Estimated GFR > 60 (59 - ) Glucose 110 mg/dL (65-110) Calcium 8.3 L mg/dL (8.4-10.2) Total Bilirubin 0.4 mg/dL (0.2-1.3) AST 25 U/L (14-36) ALT 24 U/L (6-35) Alkaline Phosphatase 36 L U/L (38-126) NT-Pro-B Natriuret Pep 286 H pg/mL (19.9-100) Total Protein 6.0 L g/dL (6.3-8.2) Albumin 3.7 g/dL (3.5-5.1) Urine Color Yellow (Yellow) Urine Appearance Cloudy H (Clear) Urine pH 8.0 (5.0-9.0) Ur Specific [place] 1.010 (1.001-1.035) Urine Protein Negative mg/dL (Negative) Urine Glucose (UA) Negative mg/dL (Negative) Urine Ketones Negative mg/dL (Negative) Ur Blood (Man) Negative (Negative) Urine Nitrate Negative (Negative) Urine Bili
[2023-05-18] MEDS: ceFAZolin 2 GM/D5W 50 ML 2 GM/50 ML BAG IVPB ×2 (15:06→22:32)
--- NOTE | 2023-05-18 17:18 | W.PM.PROC2 ---
Procedure Note - Detailed Date of Procedure 05/18/23 Pre-op Diagnosis L Femoral Neck Fracture/GLF Post-op Diagnosis Same Procedure Performed LEFT HIP HEMIARTHROPLASTY WITH BIPOLAR PROSTHESIS Surgeon Hung Reid MD Anesthesia General Description of Procedure THE PATIENT WAS TAKEN TO THE OPERATING ROOM IN STABLE CONDITION. SHE WAS PLACED IN THE LATERAL DECUBITUS AND THE LEFT LOWER EXTREMITY WAS PREPPED AND DRAPED IN THE STERILE FASHION. INCISION WAS MADE IN THE POSTERIOR LATERAL SIDE OF THE HIP, DOWN TO THE FASCIA LAYER. THE FASCIA WAS INCISED. THE HIP WAS EXPOSED. THE SHORT EXTERNAL ROTATORS WERE EXPOSED AND THERE WAS A LARGE HEMATOMA. THE CAPSULE WAS INCISED EXPOSING THE FRACTURE. THE FEMORAL HEAD WAS REMOVED. IT MEASURED 45 MM. AN OSTEOTOMY WAS MADE TO THE FEMORAL NECK ABOUT 1 CM PROXIMAL TO THE LESSER TROCHANTER. NEXT THE FEMUR WAS PREPARED WITH INITIAL CANAL FINDER THEN SEQUENTIAL REAMING UNTIL A #8 REAMER AND BROACHING TILL A #7 BROACH FIT WELL IN 15 OF ANTE VERSION. A +0 STANDARD OFFSET NECK BIPOLAR TRIAL IN A 45 MM SHELL WAS PLACED. THE SHUCK TEST WAS EXCELLENT AND THE STABILITY IN FLEXION AND ROTATION WAS EXCELLENT. LEG LENGTHS WERE GROSSLY EQUAL. TRIALS WERE REMOVED. AN ECHO #7 PRESS FIT STEM WAS PLACED WITH A STANDARD OFFSET IN 15 DEG OF ANTEVERSION. A +0 BIPOLAR HEAD NECK TRIAL WAS PLACED AGAIN. THE HIP WAS TRIALED AND THE STABILITY WAS EXCELLENT WERE THE LEG LENGTHS AND THE SHUCK TEST. NEXT A BIPOLAR HEAD NECK +0 IMPLANT WITH A 45 MM COBALT CHROME SHELL WAS PLACED AND TRIALED ONCE AGAIN SHOWING EXCELLENT STABILITY AND GROSSLY EQUAL LEG LENGTHS. THE WOUND WAS IRRIGATED WITH STERILE BETADINE AND WATER FOR 3 MIN. THEN WASHED AGAIN. THE CAPSULE AND THE EXTERNAL ROTATORS WERE APPROXIMATED WITH NUMBER 1 VICRYL. THE FASCIA WITH No 2 QUIL AND THE SUB CUTANEOUS LAYER WITH 2-0 ABSORBABLE SUTURE WITH A RUNNING 3-0 SUBCUTICULAR LAYER WELL. DERMABOND WAS PLACED AND STERILE DRESSING WAS APPLIED. PATIENT WAS PLACED BACK ON TO THE SUPINE POSITION AND WAS EXTUBATED. Estimated Blood Loss 200 Drains No Pathology None sent Complications No immediate complications Condition Stable Disposition PACU
[2023-05-18] MEDS: FAMOTIDINE 20 MG TABLET PO (21:46)
[2023-05-18] MEDS: RIVAROXABAN 10 MG TABLET PO (21:46)
[2023-05-18] MEDS: SIMVASTATIN 10 MG TABLET PO (21:46)
[2023-05-18] MEDS: SODIUM CHLORIDE 0.9% IV 1,000 ML 125 ML IV CONT (21:48)
[2023-05-19] VITALS (7 sets, daily range): BP systolic 133–170; BP diastolic 53–70; PULSE 73–90; RESP 14–20; TEMP 36.4–37.4; O2SAT 94–98
[2023-05-19] MEDS: ACETAMINOPHEN 325 MG TABLET 650 MG PO (05:28)
[2023-05-19 06:16] LABS: Basophils Percent Auto 0.1 % (0.2-1.2); Hematocrit 33.8 % (37.0-47.0); Hemoglobin 10.9 g/dL (12.0-15.0); Immature Granulocyte Absolute 0.12 K/mm3 (0.00-0.031); Immature Granulocyte Percent A 0.7 % (0-0.5); Lymphocytes Absolute Auto 0.68 K/mm3 (0.9-3.2); Lymphocytes Percent Auto 3.9 % (18.3-44.2); Mean Corpuscular HGB Conc 32.2 g/dl (32-36); Mean Corpuscular Hemoglobin 30.9 pg (26-34); Mean Corpuscular Volume 95.8 fl (80-100); Neutrophils Absolute Auto 15.4 K/mm3 (1.3-6.7); Neutrophils Percent Auto 89.3 % (45.5-73.1); Platelet Count Result 236 k/mm3 (150-375); Red Blood Count 3.53 M/mm3 (4.2-5.4); Red Cell Distribution Width 13.5 % (11.5-14.5); White Blood Count 17.3 K/mm3 (4.5-10.0)
[2023-05-19] MEDS: ceFAZolin 2 GM/D5W 50 ML 2 GM/50 ML BAG IVPB ×2 (06:17→16:24)
[2023-05-19 06:26] LABS: Anion Gap 5 mmol/L (8-16); Blood Urea Nitrogen 16 mg/dL (7-17); Calcium 8.3 mg/dL (8.4-10.2); Carbon Dioxide 25 mmol/L (22-30); Chloride 100 mmol/L (98-107); Estimated CRCL calculation 59 ml/min; Estimated Glomerular Filt Rate > 60; Glucose 138 mg/dL (65-110); Sodium 130 mmol/L (137-145)
--- NOTE | 2023-05-19 06:27 | ECG_ITS ---
Measurements Intervals [place] Rate: 81 P: 40 ME: 153 QRS: -43 QRSD: 131 T: 106 QT: 391 QTc: 455 Interpretive Statements SINUS RHYTHM LEFT AXIS DEVIATION LEFT BUNDLE BRANCH BLOCK ABNORMAL ECG COMPARED TO ECG 05/17/2023 21:20:33 NO SIGNIFICANT CHANGES Electronically Signed On 05-19-2023 11:12:22 CDT by Marquise Maddox D.O.
[2023-05-19] MEDS: SODIUM CHLORIDE 0.9% IV 1,000 ML 125 ML IV CONT (06:57)
--- NOTE | 2023-05-19 07:44 | PM.PNCARD ---
Progress Note: A&P Assessment and Plan (1) Preop cardiovascular exam: Code(s): Z01.810 - Encounter for preprocedural cardiovascular examination Status: Acute Assessment and Plan: Functional status>4 METs. May proceed to noncardiac surgery which is left hip surgery without further cardiac workup. Did well with surgery with no cardiac complications. Check post op EKG. If OK, no further cardiac workup needed. Keep f/u appointment with me in July 2023. (2) Diastolic dysfunction: Code(s): I51.89 - Other ill-defined heart diseases Status: Acute Assessment and Plan: Stable. Euvolemic. Restrict fluid intake to no more than 1.5-2 l/day. (3) LBBB (left bundle branch block): Code(s): I44.7 - Left bundle-branch block, unspecified Status: Acute (4) Edema of both legs: Code(s): R60.0 - Localized edema Status: Acute Assessment and Plan: Resolved with elevation. (5) Hyperlipidemia LDL goal <100: Code(s): E78.5 - Hyperlipidemia, unspecified Status: Acute (6) Primary hypertension: Code(s): I10 - Essential (primary) hypertension Status: Acute Assessment and Plan: Stable. Resume home medication. Subjective Date/time seen: 05/19/23 07:44 Interval history: Had left hip surgery yesterday. Denies chest pain or sob. Mild left hip pain if she moves it. Exam Const: General: cooperative, healthy appearing and comfortable Orientation/consciousness: oriented to person, oriented to place and oriented to time Resp: Auscultation: clear to auscultation bilaterally, no crackles, no rales, no rhonchi and no wheezes Cardio: Rate: regular rate Rhythm: regular rhythm Heart sounds: no murmurs Neuro: General: oriented to person, oriented to place and oriented to time Extrem: Right lower extremity: no edema Left lower extremity: no edema Objective Data Vital Signs Vital Signs: Vital Signs - 24 hr 05/18/23 09:25 05/18/23 14:13 05/18/23 14:00 Temperature 98.3 F 97.0 F L Pulse Rate 78 75 Respiratory Rate 16 18 Blood Pressure 187/69 H 160/90 H Pulse Oximetry 94 96 97 Oxygen Delivery Nasal Cannula Room Air Oxygen Flow Rate 1 Fraction of Inspired Oxygen 24 05/18/23 09:40 05/18/23 17:35 05/18/23 17:50 Temperature 97.3 F L 96.9 F L Pulse Rate 79 82 74 Respiratory Rate 16 20 20 Blood Pressure 166/57 H 125/59 L 120/59 L Pulse Oximetry 96 100 99 Oxygen Delivery Simple Face Mask Simple Face Mask Oxygen Flow Rate 10 10 Fraction of Inspired Oxygen 05/18/23 17:55 05/18/23 18:05 05/18/23 18:20 Temperature Pulse Rate 75 73 Respiratory Rate 20 16 Blood Pressure 115/83 142/51 H Pulse Oximetry 95 94 95 Oxygen Delivery Room Air Room Air Room Air Oxygen Flow Rate Fraction of Inspired Oxygen 05/18/23 18:35 05/18/23 18:50 05/18/23 20:00 Temperature 97.6 F 97.1 F L Pulse Rate 76 74 74 Respiratory Rate 16 16 16 Blood Pressure 110/89 113/50 L Pulse Oximetry 91 97 97 Oxygen Delivery Room Air Oxygen Flow Rate Fraction of Inspired Oxygen 05/18/23 22:42 05/18/23 18:35 05/18/23 18:50 Temperature 97.6 F 97.1 F L Pulse Rate 76 74 Respiratory Rate 16 16 Blood Pressure 110/89 113/50 L Pulse Oximetry 97 91 97 Oxygen Delivery Room Air Oxygen Flow Rate Fraction of Inspired Oxygen 05/18/23 19:20 05/18/23 20:20 05/19/23 00:05 Temperature 97.6 F 98.3 F 97.5 F L Pulse Rate 69 68 73 Respiratory Rate 16 18 14 Blood Pressure 124/50 L 133/50 L 133/53 L Pulse Oximetry 93 94 98 Oxygen Delivery Oxygen Flow Rate Fraction of Inspired Oxygen 05/19/23 04:06 Temperature 98.7 F Pulse Rate 76 Respiratory Rate 18 Blood Pressure 153/57 H Pulse Oximetry 94 Oxygen Delivery Oxygen Flow Rate Fraction of Inspired Oxygen Intake/Output Intake/Output: Intake & Output 05/16/23 05/17/23 05/18/23 05/19/23 23:59 23:59 23:59 23:59 Intake Total 200 1400 Output Total 550
[2023-05-19] MEDS: ONDANSETRON INJ 4 MG/2 ML VIAL IV PUSH (09:17)
[2023-05-19] MEDS: BUDESONIDE 3 MG CAP.SR.24H 9 MG PO (09:18)
[2023-05-19] MEDS: CELECOXIB 200 MG CAPSULE PO (09:20)
[2023-05-19] MEDS: FAMOTIDINE 20 MG TABLET PO ×2 (09:21→20:55)
[2023-05-19] MEDS: HYDROcodone/acetaminophen (*CRX) 7.5-325 MG TABLET 2 TAB PO (09:21)
[2023-05-19] MEDS: LOSARTAN POTASSIUM 50 MG TABLET PO ×2 (09:21→16:23)
[2023-05-19] MEDS: ACIDOPHILUS/BULGARICUS CHEWABLE TABLET 1 TABLET PO (09:22)
[2023-05-19] MEDS: CHOLECALCIFEROL 1,000 UNITS TABLET 1000 UNITS PO (09:22)
[2023-05-19] MEDS: SENNA/DOCUSATE SODIUM TABLET 2 TAB PO ×2 (09:22→16:23)
[2023-05-19] MEDS: VERAPAMIL HCL 180 MG TABLET ER PO (09:22)
[2023-05-19] MEDS: polyethylene glycoL 3350 17 GM POWD.PACK PO (09:22)
--- NOTE | 2023-05-19 10:38 | WPDANESPN ---
Anes - Prog Note Post-Op Date/Time: 05/19/23 10:38 Cardiovascular status: normal Respiratory status: normal Airway patency: baseline Mental status: baseline Post-Op hydration status: normal Vital Signs: Last Vital Signs Temp 36.7 C 05/19/23 08:00 Pulse 78 05/19/23 08:00 Resp 18 05/19/23 08:00 BP 151/69 H 05/19/23 08:00 Pulse Ox 96 05/19/23 08:00 O2 Del Method Room Air 05/19/23 08:23 O2 Flow Rate 10 05/18/23 17:50 FiO2 24 05/18/23 20:00 Pain Score (VAS): 10/02 I/O: Intake & Output 05/18/23 05/19/23 05/19/23 23:59 07:59 15:59 Intake Total 200 1400 240 Output Total 600 Balance 200 800 240 Laboratory Tests 05/19/23 05:54 05/19/23 05:54 05/19/23 05:54 WBC 17.3 H RBC 3.53 L Hgb 10.9 L Hct 33.8 L MCV 95.8 MCH 30.9 MCHC 32.2 RDW 13.5 Plt Count 236 MPV 9.0 Immature Gran % (Auto) 0.7 H Neut % (Auto) 89.3 H Lymph % (Auto) 3.9 L [place] % (Auto) 6.0 Eos % (Auto) 0.0 Baso % (Auto) 0.1 L Lymph # (Auto) 0.68 L [place] # (Auto) 1.0 H Eos # (Auto) 0.0 Baso # (Auto) 0.0 Abs Immat Gran (auto) 0.12 H Absolute Neuts (auto) 15.4 H Absolute Nucleated RBC 0.0 Nucleated RBC % 0.0 Sodium 130 L Potassium 4.0 Chloride 100 Carbon Dioxide 25 Anion Gap 5 L BUN 16 Creatinine 0.50 L Estim Creat Clear Calc 59 Estimated GFR > 60 Glucose 138 H Calcium 8.3 L Post-procedural complaints: none Patient Feedback: Patient satisfied with anesthetic care.
[2023-05-19] MEDS: hydrALAZINE HCL 20 MG/ML VIAL 10 MG IV PUSH (12:18)
--- NOTE | 2023-05-19 13:14 | PM.IMPN ---
Progress Note: A&P Assessment and Plan (1) Fracture of femoral neck, left: Qualifiers: Encounter type: initial encounter Fracture type: closed Qualified Code(s): S72.002A - Fracture of unspecified part of neck of left femur, initial encounter for closed fracture Code(s): S72.002A - Fracture of unspecified part of neck of left femur, initial encounter for closed fracture Status: Acute (2) Diastolic dysfunction: Code(s): I51.89 - Other ill-defined heart diseases Status: Acute Plan 83-year-old female with a past medical history of collagenous colitis, chronic left bundle-branch block, diastolic dysfunction, essential hypertension, dyslipidemia and osteopenia who presented to the ER after having a fall while walking her dog and landing on her left hip.? 1. Left hip fracture: Status post left hip arthroplasty with bipolar prosthesis Appreciate Orthopedic's help PT/OT Pain control Monitor leukocytosis, likely high from stress of surgery Will recheck CBC in the morning Zofran p.r.n. for nausea 2. Hypertension: Blood pressure high at the moment Add p.r.n. IV hydralazine 3. DVT prophylaxis: On Xarelto for postoperative DVT prophylaxis 4. Code status: Modified 5. Disposition: Pending improvement Time Spent With Patient Time with patient: 15 - 25 minutes Subjective Date/time seen: 05/19/23 13:14 Interval history: Status post left hip hemiarthroplasty with bipolar prosthesis Complains of nausea intermittently Work with physical therapy this morning Review of Systems Review of Systems: All systems reviewed & are unremarkable except as noted in HPI and below Exam Const: General: comfortable HENMT: Mouth: Yes moist mucous membranes Eyes: Sclera: sclerae normal Neck: Neck: supple Resp: Auscultation: clear to auscultation bilaterally Cardio: Rate: regular rate Rhythm: regular rhythm GI: GI Palp: Yes Soft to palpation Auscultation: normal bowel sounds Skin: General skin exam: normal color Other: Left hip dressing present Neuro: Speech: normal speech Psych: Mental Status: mental status grossly normal Objective Data Vital Signs Vital Signs: Vital Signs - 24 hr 05/18/23 14:13 05/18/23 14:00 05/18/23 17:35 Temperature 98.3 F 97.0 F L 96.9 F L Pulse Rate 78 75 82 Respiratory Rate 16 18 20 Blood Pressure 187/69 H 160/90 H 125/59 L Pulse Oximetry 96 97 100 Oxygen Delivery Room Air Simple Face Mask Oxygen Flow Rate 10 Fraction of Inspired Oxygen 05/18/23 17:50 05/18/23 17:55 05/18/23 18:05 Temperature Pulse Rate 74 75 Respiratory Rate 20 20 Blood Pressure 120/59 L 115/83 Pulse Oximetry 99 95 94 Oxygen Delivery Simple Face Mask Room Air Room Air Oxygen Flow Rate 10 Fraction of Inspired Oxygen 05/18/23 18:20 05/18/23 18:35 05/18/23 18:50 Temperature 97.6 F 97.1 F L Pulse Rate 73 76 74 Respiratory Rate 16 16 16 Blood Pressure 142/51 H 110/89 113/50 L Pulse Oximetry 95 91 97 Oxygen Delivery Room Air Oxygen Flow Rate Fraction of Inspired Oxygen 05/18/23 20:00 05/18/23 22:42 05/18/23 18:35 Temperature 97.6 F Pulse Rate 74 76 Respiratory Rate 16 16 Blood Pressure 110/89 Pulse Oximetry 97 97 91 Oxygen Delivery Room Air Room Air Oxygen Flow Rate Fraction of Inspired Oxygen 24 05/18/23 18:50 05/18/23 19:20 05/18/23 20:20 Temperature 97.1 F L 97.6 F 98.3 F Pulse Rate 74 69 68 Respiratory Rate 16 16 18 Blood Pressure 113/50 L 124/50 L 133/50 L Pulse Oximetry 97 93 94 Oxygen Delivery Oxygen Flow Rate Fraction of Inspired Oxygen 05/19/23 00:05 05/19/23 04:06 05/19/23 08:00 Temperature 97.5 F L 98.7 F 98.1 F Pulse Rate 73 76 78 Respiratory Rate 14 18 18 Blood Pressure 133/53 L 153/57 H 151/69 H Pulse Oximetry 98 94 96 Oxygen Delivery Oxygen Flow Rate Fraction of Inspired Oxygen 05/19/23 08:23 05/19/23 09:20 05/19/23 12:00 Temperature 98.7 F Pulse Rate 8
[2023-05-19] MEDS: RIVAROXABAN 10 MG TABLET PO (16:23)
--- NOTE | 2023-05-19 17:32 | PM.PNORT ---
Progress Note: A&P Assessment and Plan (1) Fracture of femoral neck, left: Qualifiers: Encounter type: initial encounter Fracture type: closed Qualified Code(s): S72.002A - Fracture of unspecified part of neck of left femur, initial encounter for closed fracture Code(s): S72.002A - Fracture of unspecified part of neck of left femur, initial encounter for closed fracture Status: Acute Assessment and Plan: POD 1 DOING WELL. CONTINUE PT. SNF VS HOME WITH HOME CARE WHEN STABLE PER MEDICINE. Subjective Subjective Date/Time Seen: 05/19/23 17:32 Interval history: POD 1 DOING WELL. PAIN IMPROVED. SHE HAS SOME NAUSEA. NO CALF PAIN Exam Extrem: Other: VSS AFEBRILE DRESSING DRY NV INTACT NEG HOMANS SIGN CALF AND THIGH NON TENDER, SOFT Objective Data Vital Signs Vital Signs: Vital Signs - 24 hr 05/18/23 17:35 05/18/23 17:50 05/18/23 17:55 Temperature 36.1 C L Pulse Rate 82 74 Respiratory Rate 20 20 Blood Pressure 125/59 L 120/59 L Pulse Oximetry 100 99 95 Oxygen Delivery Simple Face Mask Simple Face Mask Room Air Oxygen Flow Rate 10 10 Fraction of Inspired Oxygen 05/18/23 18:05 05/18/23 18:20 05/18/23 18:35 Temperature 36.4 C Pulse Rate 75 73 76 Respiratory Rate 20 16 16 Blood Pressure 115/83 142/51 H 110/89 Pulse Oximetry 94 95 91 Oxygen Delivery Room Air Room Air Oxygen Flow Rate Fraction of Inspired Oxygen 05/18/23 18:50 05/18/23 20:00 05/18/23 22:42 Temperature 36.2 C L Pulse Rate 74 74 Respiratory Rate 16 16 Blood Pressure 113/50 L Pulse Oximetry 97 97 97 Oxygen Delivery Room Air Room Air Oxygen Flow Rate Fraction of Inspired Oxygen 24 05/18/23 18:35 05/18/23 18:50 05/18/23 19:20 Temperature 36.4 C 36.2 C L 36.4 C Pulse Rate 76 74 69 Respiratory Rate 16 16 16 Blood Pressure 110/89 113/50 L 124/50 L Pulse Oximetry 91 97 93 Oxygen Delivery Oxygen Flow Rate Fraction of Inspired Oxygen 05/18/23 20:20 05/19/23 00:05 05/19/23 04:06 Temperature 36.8 C 36.4 C L 37.1 C Pulse Rate 68 73 76 Respiratory Rate 18 14 18 Blood Pressure 133/50 L 133/53 L 153/57 H Pulse Oximetry 94 98 94 Oxygen Delivery Oxygen Flow Rate Fraction of Inspired Oxygen 05/19/23 08:00 05/19/23 08:23 05/19/23 09:20 Temperature 36.7 C Pulse Rate 78 Respiratory Rate 18 Blood Pressure 151/69 H Pulse Oximetry 96 98 Oxygen Delivery Room Air Room Air Oxygen Flow Rate Fraction of Inspired Oxygen 05/19/23 12:00 05/19/23 16:00 Temperature 37.1 C 37.4 C Pulse Rate 82 90 Respiratory Rate 18 20 Blood Pressure 170/70 H 142/53 H Pulse Oximetry 96 97 Oxygen Delivery Oxygen Flow Rate Fraction of Inspired Oxygen Intake/Output Intake/Output: Intake & Output 05/16/23 05/17/23 05/18/23 05/19/23 23:59 23:59 23:59 23:59 Intake Total 200 1760 Output Total 550 1600 Balance -350 160 Meds/Results Medications: Active Medications Generic Name Dose Route Start Last Admin Trade Name Freq PRN Reason Stop Dose Admin Acetaminophen 650 mg 05/18/23 18:21 05/19/23 05:28 Acetaminophen 325 Mg Tablet PO 650 mg Q6H PRN Administration Mild Pain (1-3) or Fever Hydrocodone Bitart/Acetaminophen 1 tab 05/18/23 18:21 Hydrocodone/Acetaminophen (*Crx) 7.5-325 Mg Tablet PO Q3H PRN Pain Rated 4-6 Hydrocodone Bitart/Acetaminophen 2 tab 05/18/23 18:21 05/19/23 09:21 Hydrocodone/Acetaminophen (*Crx) 7.5-325 Mg Tablet PO 2 tab Q6H PRN Administration Pain Rated 7-10 Budesonide 9 mg 05/18/23 09:00 05/19/23 09:18 Budesonide 3 Mg Cap.Sr.24h PO 9 mg DAILY ZOIE Administration Celecoxib 200 mg 05/19/23 08:00 05/19/23 09:20 Celecoxib 200 Mg Capsule PO 200 mg DAILY@0800 ZOIE Administration Diazepam 5 mg 05/18/23 18:21 Diazepam (*Crx) 5 Mg Tablet PO Q8H PRN Muscle Spasm Famotidine 20 mg 05/18/23 21:00 05/19/23 09:21 Famotidine 20 Mg
[2023-05-19] MEDS: SIMVASTATIN 10 MG TABLET PO (20:55)
[2023-05-20] MEDS: HYDROcodone/acetaminophen (*CRX) 7.5-325 MG TABLET 2 TAB PO (01:53)
[2023-05-20] MEDS: ONDANSETRON INJ 4 MG/2 ML VIAL IV PUSH ×2 (03:17→08:03)
[2023-05-20] MEDS: hydrALAZINE HCL 20 MG/ML VIAL 10 MG IV PUSH (05:15)
[2023-05-20 05:31] VITALS: BP 188/59; PULSE 85; RESP 16; TEMP 36.3; O2SAT 97
[2023-05-20 05:53] VITALS: BP 162/58
[2023-05-20 06:11] LABS: Basophils Percent Auto 0.1 % (0.2-1.2); Hematocrit 31.4 % (37.0-47.0); Hemoglobin 10.2 g/dL (12.0-15.0); Immature Granulocyte Absolute 0.13 K/mm3 (0.00-0.031); Immature Granulocyte Percent A 0.8 % (0-0.5); Lymphocytes Absolute Auto 1.14 K/mm3 (0.9-3.2); Lymphocytes Percent Auto 7.5 % (18.3-44.2); Mean Corpuscular HGB Conc 32.5 g/dl (32-36); Mean Corpuscular Hemoglobin 30.9 pg (26-34); Mean Corpuscular Volume 95.2 fl (80-100); Mean Platelet Volume 9.4 fl (7.4-10.4); Monocytes Absolute Auto 1.4 K/mm3 (0.1-0.6); Monocytes Percent Auto 8.8 % (2.6-8.5); Neutrophils Absolute Auto 12.7 K/mm3 (1.3-6.7); Neutrophils Percent Auto 82.8 % (45.5-73.1); Platelet Count Result 232 k/mm3 (150-375); Red Cell Distribution Width 13.6 % (11.5-14.5); White Blood Count 15.3 K/mm3 (4.5-10.0)
[2023-05-20 06:21] LABS: Anion Gap 4 mmol/L (8-16); Blood Urea Nitrogen 21 mg/dL (7-17); Calcium 8.4 mg/dL (8.4-10.2); Carbon Dioxide 28 mmol/L (22-30); Chloride 101 mmol/L (98-107); Estimated CRCL calculation 50 ml/min; Estimated Glomerular Filt Rate > 60; Glucose 148 mg/dL (65-110); Potassium 3.9 mmol/L (3.4-5.0); Sodium 133 mmol/L (137-145)
[2023-05-20] MEDS: BUDESONIDE 3 MG CAP.SR.24H 9 MG PO (08:04)
[2023-05-20] MEDS: LOSARTAN POTASSIUM 50 MG TABLET PO ×2 (08:04→17:45)
[2023-05-20] MEDS: VERAPAMIL HCL 180 MG TABLET ER PO (08:04)
[2023-05-20] MEDS: FAMOTIDINE 20 MG TABLET PO ×2 (08:04→20:43)
[2023-05-20] MEDS: CELECOXIB 200 MG CAPSULE PO (08:05)
[2023-05-20] MEDS: polyethylene glycoL 3350 17 GM POWD.PACK PO (08:05)
[2023-05-20] MEDS: CHOLECALCIFEROL 1,000 UNITS TABLET 1000 UNITS PO (08:05)
[2023-05-20] MEDS: SENNA/DOCUSATE SODIUM TABLET 2 TAB PO ×2 (08:05→17:45)
[2023-05-20] MEDS: ACIDOPHILUS/BULGARICUS CHEWABLE TABLET 1 TABLET PO (08:05)
[2023-05-20 08:37] VITALS: O2SAT 98
--- NOTE | 2023-05-20 09:16 | PM.PNORT ---
Progress Note: A&P Assessment and Plan (1) S/P hip hemiarthroplasty: Code(s): Z96.649 - Presence of unspecified artificial hip joint Status: Acute Assessment and Plan: POD #2 : Left Hip Hemiarthroplasty s/p fracture Continue PT/OT. WBAT. Walker. HIGH FALL RISK. Continue pain control. Ice Hip. Protect skin. DVT prophylaxis with Xarelto for a 28 day course. SCDs. Incentive Spirometry Use reviewed. Monitor Dressing. Change prior to discharge. Bowel Regimen. Dispo: SNF vs [facility] pending progress with PT/OT and medical clearance. Plan Reviewed postoperative labs, vitals and exam with attending MD, Dr. Reid. Agrees with current plan as indicated above. No further recommendations at this time. Subjective Subjective Date/Time Seen: 05/20/23 09:16 Post Op day: 2 Interval history: POD #2: Left Hip Hemiarthroplasty Patient with complaints of nausea with pain medication. Up in chair at time of exam. Pain is well controlled but concerned about nausea ultimately. Awaiting discharge plans. No other reports today. Review of Systems Constitutional: Constitutional: Denies chills, Denies fatigue, Denies fever(s), Denies night sweats and Denies weakness Cardiovascular: Cardiovascular: Denies chest pain, Denies lightheadedness, Denies palpitations and Denies dyspnea Respiratory: Respiratory: Denies cough, Denies dyspnea and Denies wheezing Gastrointestinal: Gastrointestinal: Denies abdominal pain, Denies diarrhea, Reports nausea and Denies vomiting Musculoskeletal: Musculoskeletal: Reports arthralgias (left hip ), Reports joint swelling (left hip ) and Denies numbness Neurologic: Denies numbness and Denies weakness Endocrine: Endocrine: Denies fatigue and Denies palpitations Allergic/Immunologic: Allergic/Immunologic: Denies wheezing Exam Const: General: comfortable and no acute distress Orientation/consciousness: patient oriented x3 Limitations: no limitations Resp: Effort & Inspection: normal respiratory effort Cardio: Rate: regular rate Rhythm: regular rhythm GI: Inspection: non-distended Skin: General skin exam: normal color and wounds noted (incision left hip C/D/I ) Wounds: wounds noted (incision left hip C/D/I ) Neuro: General: patient oriented x3 Extrem: Left lower extremity: hip/thigh Details: tenderness Location: of the hip Location: laterally and anteriorly, swelling (thigh soft ) Location: of the hip (lateral. ), abnormal ROM (limitations with internal/external rotation and flexion/extension due to recent surgical intervention ) and other (incision lateral hip c/d/i. ), knee Details: normal to inspection and normal ROM; no tenderness and no swelling, lower leg (Negative Ceci's Sign ) Details: no edema, ankle (+ankle dorsiflexion/plantarflexion ) Details: normal to inspection, no edema and normal ROM; no tenderness, no swelling and no warmth and foot Details: normal capillary refill, toes with normal ROM, vascular exam Details: dorsalis pedis pulse present and motor-sensory exam light-touch normal in all toes; no tenderness, no ecchymosis and no crepitus Psych: Mental Status: mental status grossly normal Affect: normal affect Objective Data Vital Signs Vital Signs: Vital Signs - 24 hr 05/19/23 09:20 05/19/23 12:00 05/19/23 16:00 Temperature 37.1 C 37.4 C Pulse Rate 82 90 Respiratory Rate 18 20 Blood Pressure 170/70 H 142/53 H Pulse Oximetry 98 96 97 Oxygen Delivery Room Air 05/19/23 22:00 05/20/23 05:31 05/20/23 05:53 Temperature 37.1 C 36.3 C L Pulse Rate 88 85 Respiratory Rate 14 16 Blood Pressure 148/65 H 188/59 H 162/58 H Pulse Oximetry 98 97 Oxygen Delivery 05/20/23 08:12 05/20/23 08:37 Temperature Pulse Rate Respiratory Rate Blood Pressure Pulse Oximetry 98 Oxygen Delivery Room Air Room Air Intake/Output Intake/Output: Intake & Output 05/17/23 05/18/23 05/19/23 05/20/23 23:59 23:59 23:59 23:59 Intake Total 200 2049
[2023-05-20] MEDS: PROMETHAZINE HCL 25 MG/ML AMPUL 12.5 MG IV PUSH (10:28)
[2023-05-20 14:00] VITALS: BP 131/52; PULSE 79; RESP 18; TEMP 37.5; O2SAT 100
--- NOTE | 2023-05-20 15:05 | PM.IMPN ---
Progress Note: A&P Assessment and Plan (1) Fracture of femoral neck, left: Qualifiers: Encounter type: initial encounter Fracture type: closed Qualified Code(s): S72.002A - Fracture of unspecified part of neck of left femur, initial encounter for closed fracture Code(s): S72.002A - Fracture of unspecified part of neck of left femur, initial encounter for closed fracture Status: Acute (2) Diastolic dysfunction: Code(s): I51.89 - Other ill-defined heart diseases Status: Acute Plan 83-year-old female with a past medical history of collagenous colitis, chronic left bundle-branch block, diastolic dysfunction, essential hypertension, dyslipidemia and osteopenia who presented to the ER after having a fall while walking her dog and landing on her left hip.? 1. Left hip fracture: Status post left hip arthroplasty with bipolar prosthesis Appreciate Orthopedic's help PT/OT Pain control Monitor leukocytosis, likely high from stress of surgery, improving Will recheck CBC in the morning Zofran p.r.n. for nausea At tramadol for pain control 2. Hypertension: Increase the dose of verapamil Continue with p.r.n. IV hydralazine 3. DVT prophylaxis: On Xarelto for postoperative DVT prophylaxis 4. Code status: Modified 5. Disposition: Pending placement Time Spent With Patient Time with patient: 15 - 25 minutes Subjective Date/time seen: 05/20/23 15:05 Interval history: Complains of pain with physical therapy Complains of nausea when takes pain medications Review of Systems Review of Systems: All systems reviewed & are unremarkable except as noted in HPI and below Exam Const: General: comfortable HENMT: Mouth: Yes moist mucous membranes Eyes: Sclera: sclerae normal Neck: Neck: supple Resp: Auscultation: clear to auscultation bilaterally Cardio: Rate: regular rate Rhythm: regular rhythm GI: GI Palp: Yes Soft to palpation Auscultation: normal bowel sounds Skin: General skin exam: normal color Other: Left hip dressing present Neuro: Speech: normal speech Psych: Mental Status: mental status grossly normal Objective Data Vital Signs Vital Signs: Vital Signs - 24 hr 05/19/23 16:00 05/19/23 22:00 05/20/23 05:31 Temperature 99.4 F 98.8 F 97.3 F L Pulse Rate 90 88 85 Respiratory Rate 20 14 16 Blood Pressure 142/53 H 148/65 H 188/59 H Pulse Oximetry 97 98 97 Oxygen Delivery 05/20/23 05:53 05/20/23 08:12 05/20/23 08:37 Temperature Pulse Rate Respiratory Rate Blood Pressure 162/58 H Pulse Oximetry 98 Oxygen Delivery Room Air Room Air 05/20/23 14:00 Temperature 99.5 F Pulse Rate 79 Respiratory Rate 18 Blood Pressure 131/52 L Pulse Oximetry 100 Oxygen Delivery Intake/Output Intake/Output: Intake & Output 05/17/23 05/18/23 05/19/23 05/20/23 23:59 23:59 23:59 23:59 Intake Total 200 2050 950 Output Total 550 1600 Balance -350 450 950 Meds/Results Medications: Active Medications Generic Name Dose Route Start Last Admin Trade Name Freq PRN Reason Stop Dose Admin Acetaminophen 650 mg 05/18/23 18:21 05/19/23 05:28 Acetaminophen 325 Mg Tablet PO 650 mg Q6H PRN Administration Mild Pain (1-3) or Fever Hydrocodone Bitart/Acetaminophen 1 tab 05/18/23 18:21 Hydrocodone/Acetaminophen (*Crx) 7.5-325 Mg Tablet PO Q3H PRN Pain Rated 4-6 Hydrocodone Bitart/Acetaminophen 2 tab 05/18/23 18:21 05/20/23 01:53 Hydrocodone/Acetaminophen (*Crx) 7.5-325 Mg Tablet PO 2 tab Q6H PRN Administration Pain Rated 7-10 Budesonide 9 mg 05/18/23 09:00 05/20/23 08:04 Budesonide 3 Mg Cap.Sr.24h PO 9 mg DAILY ZOIE Administration Celecoxib 200 mg 05/19/23 08:00 05/20/23 08:05 Celecoxib 200 Mg Capsule PO 200 mg DAILY@0800 ZOIE Administration Diazepam 5 mg 05/18/23 18:21 Diazepam (*Crx) 5 Mg Tablet PO Q8H PRN Muscle Spasm Famotidine 20 mg 05/18/23 21:0
[2023-05-20] MEDS: RIVAROXABAN 10 MG TABLET PO (17:45)
[2023-05-20] MEDS: SIMVASTATIN 10 MG TABLET PO (20:43)
[2023-05-20] MEDS: ACETAMINOPHEN 325 MG TABLET 650 MG PO (20:46)
[2023-05-20 22:00] VITALS: BP 154/48; PULSE 69; RESP 14; TEMP 36.9; O2SAT 98
[2023-05-21] MEDS: polyethylene glycoL 3350 17 GM POWD.PACK PO (04:06)
[2023-05-21 06:22] LABS: Basophils Percent Auto 0.2 % (0.2-1.2); Eosinophils Absolute Auto 0.1 K/mm3 (0-0.3); Eosinophils Percent Auto 0.6 % (0-4.4); Hematocrit 33.9 % (37.0-47.0); Hemoglobin 10.8 g/dL (12.0-15.0); Immature Granulocyte Percent A 1.3 % (0-0.5); Lymphocytes Absolute Auto 3.08 K/mm3 (0.9-3.2); Lymphocytes Percent Auto 19.8 % (18.3-44.2); Mean Corpuscular HGB Conc 31.9 g/dl (32-36); Mean Corpuscular Hemoglobin 31.1 pg (26-34); Mean Corpuscular Volume 97.7 fl (80-100); Mean Platelet Volume 9.5 fl (7.4-10.4); Monocytes Absolute Auto 1.4 K/mm3 (0.1-0.6); Monocytes Percent Auto 8.9 % (2.6-8.5); Neutrophils Absolute Auto 10.8 K/mm3 (1.3-6.7); Neutrophils Percent Auto 69.2 % (45.5-73.1); Platelet Count Result 294 k/mm3 (150-375); Red Blood Count 3.47 M/mm3 (4.2-5.4); Red Cell Distribution Width 14.1 % (11.5-14.5); White Blood Count 15.6 K/mm3 (4.5-10.0)
[2023-05-21 06:23] VITALS: BP 162/60; PULSE 82; RESP 16; TEMP 37.1; O2SAT 95
[2023-05-21 06:34] LABS: Anion Gap 4 mmol/L (8-16); Blood Urea Nitrogen 17 mg/dL (7-17); Calcium 8.6 mg/dL (8.4-10.2); Carbon Dioxide 31 mmol/L (22-30); Chloride 101 mmol/L (98-107); Estimated CRCL calculation 50 ml/min; Estimated Glomerular Filt Rate > 60; Glucose 115 mg/dL (65-110); Potassium 3.6 mmol/L (3.4-5.0); Sodium 136 mmol/L (137-145)
--- NOTE | 2023-05-21 09:36 | PM.PNORT ---
Progress Note: A&P Assessment and Plan (1) S/P hip hemiarthroplasty: Code(s): Z96.649 - Presence of unspecified artificial hip joint Status: Acute Assessment and Plan: POD #3: Left Hip Hemiarthroplasty s/p fracture Continue PT/OT. WBAT. Walker. HIGH FALL RISK. Continue pain control. Ice Hip. Protect skin. DVT prophylaxis with Xarelto for a 28 day course. SCDs. Incentive Spirometry Use reviewed. Monitor Dressing. Change prior to discharge. Bowel Regimen. Dispo: SNF vs [facility] pending progress with PT/OT and medical clearance. Plan Reviewed postoperative labs, vitals and exam with attending MD, Dr. Reid. Agrees with current plan as indicated above. No further recommendations at this time. Subjective Subjective Date/Time Seen: 05/21/23 09:36 Post Op day: 3 Interval history: POD #3: Left Hip Hemiarthroplasty No new complaints. Sitting up in chair. Pain well controlled. Awaiting discharge plans. Review of Systems Constitutional: Constitutional: Denies chills, Denies fatigue, Denies fever(s), Denies night sweats and Denies weakness Cardiovascular: Cardiovascular: Denies chest pain, Denies lightheadedness, Denies palpitations and Denies dyspnea Respiratory: Respiratory: Denies cough, Denies dyspnea and Denies wheezing Gastrointestinal: Gastrointestinal: Denies abdominal pain, Denies diarrhea, Reports nausea and Denies vomiting Musculoskeletal: Musculoskeletal: Reports arthralgias (left hip ), Reports joint swelling (left hip ) and Denies numbness Neurologic: Denies numbness and Denies weakness Endocrine: Endocrine: Denies fatigue and Denies palpitations Allergic/Immunologic: Allergic/Immunologic: Denies wheezing Exam Const: General: comfortable and no acute distress Orientation/consciousness: patient oriented x3 Limitations: no limitations Resp: Effort & Inspection: normal respiratory effort Cardio: Rate: regular rate Rhythm: regular rhythm GI: Inspection: non-distended Skin: General skin exam: normal color and wounds noted (incision left hip C/D/I ) Wounds: wounds noted (incision left hip C/D/I ) Neuro: General: patient oriented x3 Extrem: Left lower extremity: hip/thigh Details: tenderness Location: of the hip Location: laterally and anteriorly, swelling (thigh soft ) Location: of the hip (lateral. ), abnormal ROM (limitations with internal/external rotation and flexion/extension due to recent surgical intervention ) and other (incision lateral hip c/d/i. ), knee Details: normal to inspection and normal ROM; no tenderness and no swelling, lower leg (Negative Ceci's Sign ) Details: no edema, ankle (+ankle dorsiflexion/plantarflexion ) Details: normal to inspection, no edema and normal ROM; no tenderness, no swelling and no warmth and foot Details: normal capillary refill, toes with normal ROM, vascular exam Details: dorsalis pedis pulse present and motor-sensory exam light-touch normal in all toes; no tenderness, no ecchymosis and no crepitus Psych: Mental Status: mental status grossly normal Affect: normal affect Objective Data Vital Signs Vital Signs: Vital Signs - 24 hr 05/20/23 14:00 05/20/23 22:00 05/21/23 06:23 Temperature 37.5 C 36.9 C 37.1 C Pulse Rate 79 69 82 Respiratory Rate 18 14 16 Blood Pressure 131/52 L 154/48 H 162/60 H Pulse Oximetry 100 98 95 Intake/Output Intake/Output: Intake & Output 05/18/23 05/19/23 05/20/23 05/21/23 23:59 23:59 23:59 23:59 Intake Total 200 2050 1190 790 Output Total 550 1600 Balance -090 306 6840 790 Meds/Results Medications: Active Medications Generic Name Dose Route Start Last Admin Trade Name Freq PRN Reason Stop Dose Admin Acetaminophen 650 mg 05/18/23 18:21 05/20/23 20:46 Acetaminophen 325 Mg Tablet PO 650 mg Q6H PRN Administration Mild Pain (1-3) or Fever Hydrocodone Bitart/Acetaminophen 1 tab 05/18/23 18:21 Hydrocodone/Acetaminophen (*Crx) 7.5-325 Mg Tablet PO Q3H PRN
[2023-05-21] MEDS: ACETAMINOPHEN 325 MG TABLET 650 MG PO (10:24)
[2023-05-21] MEDS: VERAPAMIL HCL ER 120 MG TABLET 240 MG PO (10:25)
[2023-05-21] MEDS: ACIDOPHILUS/BULGARICUS CHEWABLE TABLET 1 TABLET PO (10:25)
[2023-05-21] MEDS: SENNA/DOCUSATE SODIUM TABLET 2 TAB PO ×2 (10:25→18:14)
[2023-05-21] MEDS: LOSARTAN POTASSIUM 50 MG TABLET PO ×2 (10:26→18:14)
[2023-05-21] MEDS: CELECOXIB 200 MG CAPSULE PO (10:26)
[2023-05-21] MEDS: CHOLECALCIFEROL 1,000 UNITS TABLET 1000 UNITS PO (10:26)
[2023-05-21] MEDS: FAMOTIDINE 20 MG TABLET PO ×2 (10:26→20:37)
[2023-05-21] MEDS: BUDESONIDE 3 MG CAP.SR.24H 9 MG PO (10:26)
--- NOTE | 2023-05-21 13:14 | PM.IMPN ---
Progress Note: A&P Assessment and Plan (1) Fracture of femoral neck, left: Qualifiers: Encounter type: initial encounter Fracture type: closed Qualified Code(s): S72.002A - Fracture of unspecified part of neck of left femur, initial encounter for closed fracture Code(s): S72.002A - Fracture of unspecified part of neck of left femur, initial encounter for closed fracture Status: Acute (2) Diastolic dysfunction: Code(s): I51.89 - Other ill-defined heart diseases Status: Acute Plan 83-year-old female with a past medical history of collagenous colitis, chronic left bundle-branch block, diastolic dysfunction, essential hypertension, dyslipidemia and osteopenia who presented to the ER after having a fall while walking her dog and landing on her left hip.? 1. Left hip fracture: Status post left hip arthroplasty with bipolar prosthesis Appreciate Orthopedic's help PT/OT Pain control Monitor leukocytosis, likely high from stress of surgery, improving Chest x-ray was unremarkable Of 8 urinalysis Will recheck CBC in the morning Zofran p.r.n. for nausea Add tramadol for pain control 2. Hypertension: Continue with verapamil Continue with p.r.n. IV hydralazine 3. Hyponatremia: Is improving 4. DVT prophylaxis: On Xarelto for postoperative DVT prophylaxis 5. Code status: Modified 6. Disposition: Pending placement Time Spent With Patient Time with patient: 15 - 25 minutes Subjective Date/time seen: 05/21/23 13:14 Interval history: Nausea and vomiting have improved Postoperative pain is much better Review of Systems Review of Systems: All systems reviewed & are unremarkable except as noted in HPI and below Exam Const: General: comfortable HENMT: Mouth: Yes moist mucous membranes Eyes: Sclera: sclerae normal Neck: Neck: supple Resp: Auscultation: clear to auscultation bilaterally Cardio: Rate: regular rate Rhythm: regular rhythm GI: GI Palp: Yes Soft to palpation Auscultation: normal bowel sounds Skin: General skin exam: normal color Other: Left hip dressing present Neuro: Speech: normal speech Psych: Mental Status: mental status grossly normal Objective Data Vital Signs Vital Signs: Vital Signs - 24 hr 05/20/23 14:00 05/20/23 22:00 05/21/23 06:23 Temperature 99.5 F 98.4 F 98.7 F Pulse Rate 79 69 82 Respiratory Rate 18 14 16 Blood Pressure 131/52 L 154/48 H 162/60 H Pulse Oximetry 100 98 95 Intake/Output Intake/Output: Intake & Output 05/18/23 05/19/23 05/20/23 05/21/23 23:59 23:59 23:59 23:59 Intake Total 200 2050 1190 790 Output Total 550 1600 Balance -091 922 5165 790 Meds/Results Medications: Active Medications Generic Name Dose Route Start Last Admin Trade Name Freq PRN Reason Stop Dose Admin Acetaminophen 650 mg 05/18/23 18:21 05/21/23 10:24 Acetaminophen 325 Mg Tablet PO 650 mg Q6H PRN Administration Mild Pain (1-3) or Fever Hydrocodone Bitart/Acetaminophen 1 tab 05/18/23 18:21 Hydrocodone/Acetaminophen (*Crx) 7.5-325 Mg Tablet PO Q3H PRN Pain Rated 4-6 Hydrocodone Bitart/Acetaminophen 2 tab 05/18/23 18:21 05/20/23 01:53 Hydrocodone/Acetaminophen (*Crx) 7.5-325 Mg Tablet PO 2 tab Q6H PRN Administration Pain Rated 7-10 Budesonide 9 mg 05/18/23 09:00 05/21/23 10:26 Budesonide 3 Mg Cap.Sr.24h PO 9 mg DAILY ZOIE Administration Celecoxib 200 mg 05/19/23 08:00 05/21/23 10:26 Celecoxib 200 Mg Capsule PO 200 mg DAILY@0800 ZOIE Administration Diazepam 5 mg 05/18/23 18:21 Diazepam (*Crx) 5 Mg Tablet PO Q8H PRN Muscle Spasm Famotidine 20 mg 05/18/23 21:00 05/21/23 10:26 Famotidine 20 Mg Tablet PO 20 mg Q12HR ZOIE Administration Hydralazine HCl 10 mg 05/19/23 11:57 05/20/23 05:15 Hydralazine Hcl 20 Mg/Ml Vial IV PUSH 10 mg Q8H PRN Administration Blood Pressure - High Hydroxyzine Pamoate 50 mg 05/18/23
[2023-05-21 13:16] LABS: Appearance Urine Cloudy (Clear); Bacteria Urine 1+ /hpf; Bilirubin Urine 1+ (Negative); Blood Urine Negative (Negative); Color Urine Dark Yellow (Yellow); Glucose Urine UA Negative (Negative); Ketones Urine Trace mg/dL (Negative); Leukocyte Esterase Ur 2+ LEU/UL (Negative); Nitrate Urine Negative (Negative); Protein Urine 1+ mg/dL (Negative); Specific Grav Ur 1.023 (1.001-1.035); Squamous Epithelial Cell Urine Few /hpf (Few); WBC Urine 21-50 /hpf; pH Urine 6.5 (5.0-9.0)
[2023-05-21 13:51] VITALS: BP 149/54; PULSE 85; RESP 17; TEMP 36.7; O2SAT 99
[2023-05-21 14:05] LABS: Add Urine Microscopic? YES
[2023-05-21] MEDS: RIVAROXABAN 10 MG TABLET PO (18:14)
[2023-05-21] MEDS: SIMVASTATIN 10 MG TABLET PO (20:37)
[2023-05-21 21:03] VITALS: BP 131/50; PULSE 70; RESP 16; TEMP 36.4; O2SAT 98
[2023-05-22 05:07] VITALS: BP 175/79; PULSE 85; RESP 16; TEMP 36.6; O2SAT 99
[2023-05-22 05:10] VITALS: BP 180/82
[2023-05-22] MEDS: hydrALAZINE HCL 20 MG/ML VIAL 10 MG IV PUSH (05:39)
[2023-05-22 06:34] LABS: Basophils Percent Auto 0.3 % (0.2-1.2); Eosinophils Absolute Auto 0.2 K/mm3 (0-0.3); Eosinophils Percent Auto 1.7 % (0-4.4); Hemoglobin 10.2 g/dL (12.0-15.0); Immature Granulocyte Absolute 0.17 K/mm3 (0.00-0.031); Immature Granulocyte Percent A 1.5 % (0-0.5); Lymphocytes Percent Auto 28.7 % (18.3-44.2); Mean Corpuscular HGB Conc 31.9 g/dl (32-36); Mean Corpuscular Hemoglobin 30.9 pg (26-34); Mean Platelet Volume 9.5 fl (7.4-10.4); Monocytes Absolute Auto 0.9 K/mm3 (0.1-0.6); Monocytes Percent Auto 7.9 % (2.6-8.5); Neutrophils Absolute Auto 6.9 K/mm3 (1.3-6.7); Neutrophils Percent Auto 59.9 % (45.5-73.1); Platelet Count Result 305 k/mm3 (150-375); White Blood Count 11.5 K/mm3 (4.5-10.0)
[2023-05-22 06:42] LABS: Anion Gap 5 mmol/L (8-16); Blood Urea Nitrogen 17 mg/dL (7-17); Calcium 8.7 mg/dL (8.4-10.2); Carbon Dioxide 28 mmol/L (22-30); Chloride 102 mmol/L (98-107); Estimated CRCL calculation 50 ml/min; Estimated Glomerular Filt Rate > 60; Glucose 94 mg/dL (65-110); Sodium 135 mmol/L (137-145)
[2023-05-22 08:00] VITALS: BP 136/49
[2023-05-22] MEDS: BUDESONIDE 3 MG CAP.SR.24H 9 MG PO (08:02)
[2023-05-22] MEDS: VERAPAMIL HCL ER 120 MG TABLET 240 MG PO (08:02)
[2023-05-22] MEDS: CELECOXIB 200 MG CAPSULE PO (08:02)
[2023-05-22] MEDS: ACIDOPHILUS/BULGARICUS CHEWABLE TABLET 1 TABLET PO (08:02)
[2023-05-22] MEDS: FAMOTIDINE 20 MG TABLET PO ×2 (08:02→22:00)
[2023-05-22] MEDS: CHOLECALCIFEROL 1,000 UNITS TABLET 1000 UNITS PO (08:03)
[2023-05-22] MEDS: LOSARTAN POTASSIUM 50 MG TABLET PO ×2 (08:03→21:59)
[2023-05-22] MEDS: cefTRIAXone 2 GM/NS 100 ML 2 GM/100 ML BAG IVPB (08:08)
[2023-05-22] MEDS: SENNA/DOCUSATE SODIUM TABLET 2 TAB PO (08:08)
--- NOTE | 2023-05-22 10:21 | PM.IMPN ---
Progress Note: A&P Assessment and Plan (1) Fracture of femoral neck, left: Qualifiers: Encounter type: initial encounter Fracture type: closed Qualified Code(s): S72.002A - Fracture of unspecified part of neck of left femur, initial encounter for closed fracture Code(s): S72.002A - Fracture of unspecified part of neck of left femur, initial encounter for closed fracture Status: Acute Assessment and Plan: Status post left hip arthroplasty with bipolar prosthesis Appreciate Orthopedic's help PT/OT Pain control Disposition: pending placement, patient wants to go to [facility] but insurance has denied, appeal is in place (2) Primary hypertension: Code(s): I10 - Essential (primary) hypertension Status: Acute Assessment and Plan: Stable, blood pressure reviewed 05/22, continue home medications (3) Hyponatremia: Code(s): E87.1 - Hypo-osmolality and hyponatremia Status: Chronic Assessment and Plan: Mild and improved from admission (4) UTI (urinary tract infection): Code(s): N39.0 - Urinary tract infection, site not specified Status: Acute Assessment and Plan: UA consistent with UTI. Culture pending. Start Rocephin IV. Time Spent With Patient Time with patient: 25 - 35 minutes Subjective Date/time seen: 05/22/23 08:15 Interval history: 83-year-old female with a past medical history of collagenous colitis, chronic left bundle-branch block, diastolic dysfunction, essential hypertension, dyslipidemia and osteopenia who presented to the ER after having a fall while walking her dog and landing on her left hip.? Patient reports that she is feeling okay today except some pain in her left hip where she had surgery. Patient notes that she cannot lift her leg back up onto the bed after ambulating with walker. Patient denies any difficulty breathing or chest pain. She is noted to suspicion for UTI recent urinalysis, IV antibiotics initiated. Review of Systems Review of Systems: 12 systems were reviewed with pertinent positives and negatives per HPI. Except as documented in the HPI, all other systems were reviewed and are negative. All systems reviewed & are unremarkable except as noted in HPI and below Exam Narrative: GENERAL: Generally well appearing, alert and oriented, in no apparent distress. She is pleasant and conversant in full sentences. HEENT: Pupils are equally round and briskly reactive to light. Extraocular muscles are intact. Oral mucous membranes are moist without lesions. NECK: The patient has no noted JVD. No adenopathy is appreciated. CHEST/LUNGS: Lungs are clear bilaterally without rhonchi, rales, or wheezes. There is no subcutaneous air appreciated. There is no tenderness to the chest wall. HEART: The patient has a regular rate and rhythm. No murmurs, rubs, or gallops are appreciated. Distal pulses are 2+. No carotid bruits appreciated. ABDOMEN: The patient's abdomen is soft, nontender, and nondistended. Bowel sounds are positive. No organomegaly is appreciated. No masses are appreciated. There are no peritoneal signs. There is no Neely's sign. EXTREMITIES: The patient has no peripheral edema. There is no focal long bone tenderness or deformity. left hip bandage clean dry and intact, pain with palpation near surgical site SKIN: The patient's skin is warm and dry, without rashes or lesions. PSYCHIATRIC: The patient has normal mental status and has an appropriate affect. NEUROLOGIC: There are no gross deficits to the cranial nerves. Patient ambulates very slowly with walker, unable to lift her legs up onto the bed herself Objective Data Vital Signs Vital Signs: Vital Signs - 24 hr 05/21/23 10:25 05/21/23 13:51 05/21/23 21:03 Temperature 36.7 C 36.4 C L Pulse Rate 85 70 Respiratory Rate 17 16 Blood Pressure 149/54 H 131/50 L Pulse Oximetry 99 98 Oxygen Delivery Room Air 05/22/23 05:07 05/22/23
[2023-05-22] MEDS: HYDROcodone/acetaminophen (*CRX) 7.5-325 MG TABLET 2 TAB PO (10:36)
[2023-05-22] MEDS: ONDANSETRON INJ 4 MG/2 ML VIAL IV PUSH ×3 (12:23→20:45)
--- NOTE | 2023-05-22 12:53 | PCOTNOTE ---
Attempted to see pt for Occupational Therapy treatment this AM. Pt declined to participate due to nausea. RN reports that pt just recieved medication for nausea. Pt request to have therapy attempt at a later time.
--- NOTE | 2023-05-22 13:17 | PCOTNOTE ---
2nd Attempt was made to have pt participate with Occupational therapy treatment following lunch. Pt currently has family with her and request to have therapist attempt later.
[2023-05-22 14:00] VITALS: BP 162/64; PULSE 87; RESP 16; TEMP 36.4; O2SAT 99
[2023-05-22 21:08] VITALS: BP 169/69; PULSE 87; RESP 16; TEMP 36.6; O2SAT 99
[2023-05-22] MEDS: RIVAROXABAN 10 MG TABLET PO (21:59)
[2023-05-23 05:10] VITALS: BP 154/59; PULSE 94; RESP 16; TEMP 36.6; O2SAT 100
[2023-05-23 06:06] LABS: Basophils Absolute Auto 0.1 K/mm3 (0.0-0.1); Basophils Percent Auto 0.4 % (0.2-1.2); Eosinophils Absolute Auto 0.3 K/mm3 (0-0.3); Hemoglobin 10.6 g/dL (12.0-15.0); Immature Granulocyte Absolute 0.34 K/mm3 (0.00-0.031); Immature Granulocyte Percent A 2.8 % (0-0.5); Lymphocytes Absolute Auto 4.88 K/mm3 (0.9-3.2); Lymphocytes Percent Auto 39.6 % (18.3-44.2); Mean Corpuscular HGB Conc 32.1 g/dl (32-36); Mean Corpuscular Hemoglobin 31.3 pg (26-34); Mean Corpuscular Volume 97.3 fl (80-100); Mean Platelet Volume 8.9 fl (7.4-10.4); Monocytes Percent Auto 8.4 % (2.6-8.5); Neutrophils Absolute Auto 5.8 K/mm3 (1.3-6.7); Neutrophils Percent Auto 46.8 % (45.5-73.1); Platelet Count Result 331 k/mm3 (150-375); Red Blood Count 3.39 M/mm3 (4.2-5.4); White Blood Count 12.3 K/mm3 (4.5-10.0)
[2023-05-23 06:23] LABS: Alanine Aminotransferase 40 U/L (6-35); Albumin Level 3.6 g/dL (3.5-5.1); Alkaline Phosphatase 50 U/L (38-126); Anion Gap 4 mmol/L (8-16); Aspartate Amino Transferase 34 U/L (14-36); Bilirubin,Total 0.9 mg/dL (0.2-1.3); Blood Urea Nitrogen 15 mg/dL (7-17); Calcium 8.7 mg/dL (8.4-10.2); Carbon Dioxide 31 mmol/L (22-30); Chloride 100 mmol/L (98-107); Estimated CRCL calculation 50 ml/min; Estimated Glomerular Filt Rate > 60; Glucose 91 mg/dL (65-110); Potassium 3.8 mmol/L (3.4-5.0); Sodium 135 mmol/L (137-145)
--- NOTE | 2023-05-23 08:01 | PM.IMPN ---
Progress Note: A&P Assessment and Plan (1) Fracture of femoral neck, left: Qualifiers: Encounter type: initial encounter Fracture type: closed Qualified Code(s): S72.002A - Fracture of unspecified part of neck of left femur, initial encounter for closed fracture Code(s): S72.002A - Fracture of unspecified part of neck of left femur, initial encounter for closed fracture Status: Acute Assessment and Plan: Status post left hip arthroplasty with bipolar prosthesis Appreciate Orthopedic's help PT/OT Pain control Disposition: pending placement, patient wants to go to [facility] but insurance has denied, appeal is in place (2) Primary hypertension: Code(s): I10 - Essential (primary) hypertension Status: Acute Assessment and Plan: Stable, blood pressure reviewed 05/23, continue home medications (3) Hyponatremia: Code(s): E87.1 - Hypo-osmolality and hyponatremia Status: Chronic Assessment and Plan: Mild and improved from admission 05/23: stable at 135 (4) UTI (urinary tract infection): Code(s): N39.0 - Urinary tract infection, site not specified Status: Acute Assessment and Plan: UA consistent with UTI. Culture pending. Start Rocephin IV. 05/23: Urine culture E. coli, susceptibilities pending Plan Continue to treat UTI Continue PT OT pending disposition Time Spent With Patient Time with patient: 25 - 35 minutes Subjective Date/time seen: 05/23/23 08:01 Interval history: 83-year-old female with a past medical history of collagenous colitis, chronic left bundle-branch block, diastolic dysfunction, essential hypertension, dyslipidemia and osteopenia who presented to the ER after having a fall while walking her dog and landing on her left hip.? 05/22: Patient reports that she is feeling okay today except some pain in her left hip where she had surgery. Patient notes that she cannot lift her leg back up onto the bed after ambulating with walker. Patient denies any difficulty breathing or chest pain. She is noted to suspicion for UTI recent urinalysis, IV antibiotics initiated. 05/23: Patient reports she is feeling crummy and attributes this to the amount of medication she is taking. She reports still having difficulty getting into and out of bed independently, difficulty raising/lowering legs independently. She does ambulate with walker, though slowly and with much discomfort. She remains of IV Rocephin for E. coli in urine, sensitivities pending. Review of Systems Review of Systems: All systems reviewed & are unremarkable except as noted in HPI and below Exam Narrative: GENERAL: Generally well appearing, alert and oriented, in no apparent distress. She is pleasant and conversant in full sentences. HEENT: Pupils are equally round and briskly reactive to light. Extraocular muscles are intact. Oral mucous membranes are moist without lesions. NECK: The patient has no noted JVD. No adenopathy is appreciated. CHEST/LUNGS: Lungs are clear bilaterally without rhonchi, rales, or wheezes. There is no subcutaneous air appreciated. HEART: The patient has a regular rate and rhythm. No murmurs, rubs, or gallops are appreciated. Distal pulses are 2+. ABDOMEN: The patient's abdomen is soft, nontender, and nondistended. Bowel sounds are positive. No peritoneal signs. EXTREMITIES: The patient has no peripheral edema. There is no focal long bone tenderness or deformity. left hip bandage clean dry and intact, pain with palpation near surgical site SKIN: The patient's skin is warm and dry, without rashes or lesions. PSYCHIATRIC: The patient has normal mental status and has an appropriate affect. NEUROLOGIC: There are no gross deficits to the cranial nerves. Patient ambulates very slowly with walker, unable to lift her legs up onto the bed herself Objective Data Vital Signs Vital Signs: Vital Signs - 24 hr 05/22/23 14:00 05/22/23 20
--- NOTE | 2023-05-23 08:39 | PCPTNOTE ---
Attempted treatment at 08:35, Pt eating breakfast. Will attempt again.
[2023-05-23] MEDS: ACIDOPHILUS/BULGARICUS CHEWABLE TABLET 1 TABLET PO (08:47)
[2023-05-23] MEDS: LOSARTAN POTASSIUM 50 MG TABLET PO ×2 (08:47→16:24)
[2023-05-23] MEDS: CELECOXIB 200 MG CAPSULE PO (08:47)
[2023-05-23] MEDS: FAMOTIDINE 20 MG TABLET PO ×2 (08:47→21:39)
[2023-05-23] MEDS: BUDESONIDE 3 MG CAP.SR.24H 9 MG PO (08:47)
[2023-05-23] MEDS: SENNA/DOCUSATE SODIUM TABLET 2 TAB PO ×2 (08:48→16:24)
[2023-05-23] MEDS: CHOLECALCIFEROL 1,000 UNITS TABLET 1000 UNITS PO (08:48)
[2023-05-23] MEDS: VERAPAMIL HCL ER 120 MG TABLET 240 MG PO (08:48)
--- NOTE | 2023-05-23 12:55 | PC.NURSE ---
Pt sitting up in chair. Pt is A&O4 female who has participated and contributed in plan of care. Pt denies using any pain medication because of how it makes her feel. Pt continues to move around room with assistance. Pt tolerating well. Pt had therapy today and tolerated that well. Will continue to monitor pt.
[2023-05-23 14:00] VITALS: BP 138/50; PULSE 77; RESP 18; TEMP 36.8; O2SAT 96
[2023-05-23] MEDS: RIVAROXABAN 10 MG TABLET PO (16:24)
[2023-05-23 21:23] VITALS: BP 157/68; PULSE 70; RESP 16; TEMP 36.6; O2SAT 97
[2023-05-23] MEDS: SIMVASTATIN 10 MG TABLET PO (21:39)
[2023-05-24 04:33] VITALS: BP 195/69; PULSE 76; RESP 16; TEMP 36.5; O2SAT 98
[2023-05-24] MEDS: hydrALAZINE HCL 20 MG/ML VIAL 10 MG IV PUSH (04:59)
[2023-05-24 06:05] VITALS: BP 155/55
[2023-05-24 08:09] LABS: Basophils Absolute Auto 0.1 K/mm3 (0.0-0.1); Basophils Percent Auto 0.6 % (0.2-1.2); Eosinophils Absolute Auto 0.1 K/mm3 (0-0.3); Eosinophils Percent Auto 1.1 % (0-4.4); Hematocrit 30.9 % (37.0-47.0); Hemoglobin 9.9 g/dL (12.0-15.0); Lymphocytes Absolute Auto 3.25 K/mm3 (0.9-3.2); Mean Corpuscular Hemoglobin 30.7 pg (26-34); Mean Corpuscular Volume 95.7 fl (80-100); Mean Platelet Volume 8.7 fl (7.4-10.4); Monocytes Absolute Auto 1.2 K/mm3 (0.1-0.6); Monocytes Percent Auto 10.1 % (2.6-8.5); Neutrophils Absolute Auto 6.8 K/mm3 (1.3-6.7); Neutrophils Percent Auto 56.2 % (45.5-73.1); Platelet Count Result 337 k/mm3 (150-375); Red Blood Count 3.23 M/mm3 (4.2-5.4); Red Cell Distribution Width 13.5 % (11.5-14.5)
[2023-05-24 08:10] LABS: Alanine Aminotransferase 41 U/L (6-35); Albumin Level 3.3 g/dL (3.5-5.1); Alkaline Phosphatase 50 U/L (38-126); Anion Gap 6 mmol/L (8-16); Aspartate Amino Transferase 31 U/L (14-36); Bilirubin,Total 0.7 mg/dL (0.2-1.3); Blood Urea Nitrogen 18 mg/dL (7-17); Calcium 8.5 mg/dL (8.4-10.2); Carbon Dioxide 25 mmol/L (22-30); Chloride 101 mmol/L (98-107); Estimated CRCL calculation 59 ml/min; Estimated Glomerular Filt Rate > 60; Glucose 97 mg/dL (65-110); Potassium 3.3 mmol/L (3.4-5.0); Sodium 132 mmol/L (137-145)
[2023-05-24] MEDS: ACIDOPHILUS/BULGARICUS CHEWABLE TABLET 1 TABLET PO (08:36)
[2023-05-24] MEDS: BUDESONIDE 3 MG CAP.SR.24H 9 MG PO (08:36)
[2023-05-24] MEDS: polyethylene glycoL 3350 17 GM POWD.PACK PO (08:36)
[2023-05-24] MEDS: CHOLECALCIFEROL 1,000 UNITS TABLET 1000 UNITS PO (08:38)
[2023-05-24] MEDS: VERAPAMIL HCL ER 120 MG TABLET 240 MG PO (08:38)
[2023-05-24] MEDS: SENNA/DOCUSATE SODIUM TABLET 2 TAB PO ×2 (08:38→16:52)
[2023-05-24] MEDS: LOSARTAN POTASSIUM 50 MG TABLET PO ×2 (08:39→16:52)
[2023-05-24] MEDS: FAMOTIDINE 20 MG TABLET PO ×2 (08:39→20:41)
[2023-05-24 14:00] VITALS: BP 152/50; PULSE 84; RESP 14; TEMP 36.4; O2SAT 98
[2023-05-24] MEDS: ACETAMINOPHEN 325 MG TABLET 650 MG PO (14:16)
[2023-05-24] MEDS: RIVAROXABAN 10 MG TABLET PO (16:52)
--- NOTE | 2023-05-24 17:12 | PM.IMPN ---
Progress Note: A&P Assessment and Plan (1) Fracture of femoral neck, left: Qualifiers: Encounter type: initial encounter Fracture type: closed Qualified Code(s): S72.002A - Fracture of unspecified part of neck of left femur, initial encounter for closed fracture Code(s): S72.002A - Fracture of unspecified part of neck of left femur, initial encounter for closed fracture Status: Acute Assessment and Plan: Status post left hip arthroplasty with bipolar prosthesis Appreciate Orthopedic's help PT/OT Pain control Disposition: pending placement, patient wants to go to [facility] but insurance has denied, appeal is in place patient is now looking to go to [facility] rather than [facility] (2) Primary hypertension: Code(s): I10 - Essential (primary) hypertension Status: Acute Assessment and Plan: Stable, blood pressure reviewed 05/24, continue home medications (3) Hyponatremia: Code(s): E87.1 - Hypo-osmolality and hyponatremia Status: Chronic Assessment and Plan: Mild and improved from admission 05/23: stable at 135 05/24: 132 today (4) UTI (urinary tract infection): Code(s): N39.0 - Urinary tract infection, site not specified Status: Acute Assessment and Plan: UA consistent with UTI. Culture pending. Start Rocephin IV. 05/23: Urine culture E. coli, susceptibilities pending 05/24: 3 day course of IV Rocephin completed Plan Patient informed of low potassium does not want to take oral potassium at this time due to upset stomach and nausea. She wants to eat a banana with each meal. Will recheck tomorrow Continue PT OT pending disposition Time Spent With Patient Time with patient: 25 - 35 minutes Subjective Date/time seen: 05/24/23 17:12 Interval history: Patient reporting nausea today not wanting to take all of her oral medications especially Celebrex. She is awaiting insurance authorization for rehab. She reports still having trouble getting legs into and out of bed on her own and has to have somebody lift them up for her. Review of Systems Review of Systems: 12 systems were reviewed with pertinent positives and negatives per HPI. Except as documented in the HPI, all other systems were reviewed and are negative. All systems reviewed & are unremarkable except as noted in HPI and below Exam Narrative: GENERAL: Generally well appearing, alert and oriented, in no apparent distress. She is pleasant and conversant in full sentences. HEENT: Pupils are equally round and briskly reactive to light. Extraocular muscles are intact. Oral mucous membranes are moist without lesions. NECK: The patient has no noted JVD. No adenopathy is appreciated. CHEST/LUNGS: Lungs are clear bilaterally without rhonchi, rales, or wheezes. There is no subcutaneous air appreciated. HEART: The patient has a regular rate and rhythm. No murmurs, rubs, or gallops are appreciated. Distal pulses are 2+. ABDOMEN: The patient's abdomen is soft, nontender, and nondistended. Bowel sounds are positive. No peritoneal signs. EXTREMITIES: The patient has no peripheral edema. There is no focal long bone tenderness or deformity. left hip bandage clean dry and intact, pain with palpation near surgical site SKIN: The patient's skin is warm and dry, without rashes or lesions. PSYCHIATRIC: The patient has normal mental status and has an appropriate affect. NEUROLOGIC: There are no gross deficits to the cranial nerves. Patient ambulates very slowly with walker, unable to lift her legs up onto the bed herself Objective Data Vital Signs Vital Signs: Vital Signs - 24 hr 05/23/23 21:23 05/24/23 04:33 05/24/23 06:05 Temperature 36.6 C 36.5 C Pulse Rate 70 76 Respiratory Rate 16 16 Blood Pressure 157/68 H 195/69 H 155/55 H Pulse Oximetry 97 98 Oxygen Delivery 05/24/23 07:54 05/24/23 14:00 Temperature 36.4 C Pulse Rate 84 Respi
[2023-05-24] MEDS: SIMVASTATIN 10 MG TABLET PO (20:41)
[2023-05-24 21:05] VITALS: BP 138/75; PULSE 93; RESP 18; TEMP 36.8; O2SAT 98
[2023-05-25 06:00] VITALS: BP 145/89; PULSE 74; RESP 18; TEMP 36.9; O2SAT 100
[2023-05-25 07:03] LABS: Alanine Aminotransferase 36 U/L (6-35); Albumin Level 3.2 g/dL (3.5-5.1); Alkaline Phosphatase 42 U/L (38-126); Anion Gap 4 mmol/L (8-16); Aspartate Amino Transferase 28 U/L (14-36); Bilirubin,Total 0.6 mg/dL (0.2-1.3); Blood Urea Nitrogen 17 mg/dL (7-17); Calcium 8.3 mg/dL (8.4-10.2); Carbon Dioxide 26 mmol/L (22-30); Chloride 102 mmol/L (98-107); Estimated CRCL calculation 59 ml/min; Estimated Glomerular Filt Rate > 60; Glucose 123 mg/dL (65-110); Potassium 3.2 mmol/L (3.4-5.0); Sodium 132 mmol/L (137-145)
[2023-05-25 07:15] LABS: Basophils Absolute Auto 0.1 K/mm3 (0.0-0.1); Basophils Percent Auto 0.8 % (0.2-1.2); Eosinophils Absolute Auto 0.3 K/mm3 (0-0.3); Hematocrit 30.6 % (37.0-47.0); Hemoglobin 9.8 g/dL (12.0-15.0); Immature Granulocyte Absolute 0.64 K/mm3 (0.00-0.031); Immature Granulocyte Percent A 5.7 % (0-0.5); Lymphocytes Absolute Auto 3.29 K/mm3 (0.9-3.2); Lymphocytes Percent Auto 29.5 % (18.3-44.2); Mean Corpuscular Volume 96.8 fl (80-100); Mean Platelet Volume 8.9 fl (7.4-10.4); Monocytes Absolute Auto 1.1 K/mm3 (0.1-0.6); Monocytes Percent Auto 9.5 % (2.6-8.5); Neutrophils Absolute Auto 5.7 K/mm3 (1.3-6.7); Neutrophils Percent Auto 51.5 % (45.5-73.1); Platelet Count Result 371 k/mm3 (150-375); Red Blood Count 3.16 M/mm3 (4.2-5.4); Red Cell Distribution Width 13.8 % (11.5-14.5); White Blood Count 11.2 K/mm3 (4.5-10.0)
[2023-05-25 08:12] LABS: Anisocytosis 1+ (NORMAL); Burr Cells 1+ (NORMAL); Platelet Estimate Adequate (Adequate); Schistocytes Rare (NORMAL)
[2023-05-25] MEDS: BUDESONIDE 3 MG CAP.SR.24H 9 MG PO (09:03)
[2023-05-25] MEDS: FAMOTIDINE 20 MG TABLET PO (09:04)
[2023-05-25] MEDS: LOSARTAN POTASSIUM 50 MG TABLET PO (09:04)
[2023-05-25] MEDS: VERAPAMIL HCL ER 120 MG TABLET 240 MG PO (09:04)
[2023-05-25] MEDS: CHOLECALCIFEROL 1,000 UNITS TABLET 1000 UNITS PO (09:04)
[2023-05-25] MEDS: ACIDOPHILUS/BULGARICUS CHEWABLE TABLET 1 TABLET PO (09:04)
[2023-05-25] MEDS: PANTOPRAZOLE SODIUM IV 40 MG VIAL IV PUSH (10:47)
[2023-05-25] MEDS: POTASSIUM CHLORIDE INJ 40 MEQ in SODIUM CHLORIDE 0.9% IV 500 ML 130 MEQ IVPB (10:47)
--- NOTE | 2023-05-25 10:53 | PM.PNORT ---
Progress Note: A&P Assessment and Plan (1) S/P hip hemiarthroplasty: Code(s): Z96.649 - Presence of unspecified artificial hip joint Status: Acute Assessment and Plan: POD #7: Left Hip Hemiarthroplasty s/p fracture Continue PT/OT. WBAT. Walker. HIGH FALL RISK. Continue pain control. Ice Hip. Protect skin. DVT prophylaxis with Xarelto for a full 28 day course. SCDs. Incentive Spirometry Use reviewed. Monitor Dressing. Change prior to discharge. Bowel Regimen. Dispo: Awaiting insurance authorization for SNF. Patient does not feel comfortable going home alone at this time. Plan Reviewed postoperative labs, vitals and exam with attending MD, Dr. Reid. Agrees with current plan as indicated above. No further recommendations at this time. Subjective Subjective Date/Time Seen: 05/25/23 10:53 Post Op day: 7 Interval history: POD #7: Left Hip Hemiarthroplasty No new complaints. Sitting up in chair. Pain well controlled. Awaiting discharge plans. Denied for [facility] and SNF. Does not feel she will be safe at home independently. Review of Systems Constitutional: Constitutional: Denies chills, Denies fatigue, Denies fever(s), Denies night sweats and Denies weakness Cardiovascular: Cardiovascular: Denies chest pain, Denies lightheadedness, Denies palpitations and Denies dyspnea Respiratory: Respiratory: Denies cough, Denies dyspnea and Denies wheezing Gastrointestinal: Gastrointestinal: Denies abdominal pain, Denies diarrhea, Reports nausea and Denies vomiting Musculoskeletal: Musculoskeletal: Reports arthralgias (left hip ), Reports joint swelling (left hip ) and Denies numbness Neurologic: Denies numbness and Denies weakness Endocrine: Endocrine: Denies fatigue and Denies palpitations Allergic/Immunologic: Allergic/Immunologic: Denies wheezing Exam Const: General: comfortable and no acute distress Orientation/consciousness: patient oriented x3 Limitations: no limitations Resp: Effort & Inspection: normal respiratory effort Cardio: Rate: regular rate Rhythm: regular rhythm GI: Inspection: non-distended Skin: General skin exam: normal color and wounds noted (incision left hip C/D/I ) Wounds: wounds noted (incision left hip C/D/I ) Neuro: General: patient oriented x3 Extrem: Left lower extremity: hip/thigh Details: tenderness Location: of the hip Location: laterally and anteriorly, swelling (thigh soft ) Location: of the hip (lateral. ), abnormal ROM (limitations with internal/external rotation and flexion/extension due to recent surgical intervention ) and other (incision lateral hip c/d/i. ), knee Details: normal to inspection and normal ROM; no tenderness and no swelling, lower leg (Negative Ceci's Sign ) Details: no edema, ankle (+ankle dorsiflexion/plantarflexion ) Details: normal to inspection, no edema and normal ROM; no tenderness, no swelling and no warmth and foot Details: normal capillary refill, toes with normal ROM, vascular exam Details: dorsalis pedis pulse present and motor-sensory exam light-touch normal in all toes; no tenderness, no ecchymosis and no crepitus Psych: Mental Status: mental status grossly normal Affect: normal affect Objective Data Vital Signs Vital Signs: Vital Signs - 24 hr 05/24/23 14:00 05/24/23 20:00 05/24/23 21:05 Temperature 36.4 C 36.8 C Pulse Rate 84 93 Respiratory Rate 14 18 Blood Pressure 152/50 H 138/75 Pulse Oximetry 98 98 Oxygen Delivery Room Air 05/25/23 06:00 05/25/23 08:00 Temperature 36.9 C Pulse Rate 74 Respiratory Rate 18 Blood Pressure 145/89 H Pulse Oximetry 100 Oxygen Delivery Room Air Intake/Output Intake/Output: Intake & Output 05/22/23 05/23/23 05/24/23 05/25/23 23:59 23:59 23:59 23:59 Intake Total 938 268 8106 420 Balance 268 704 0469 420 Meds/Results Medications: Active Medications Generic Name Dose Route Start Last Admin Trade Name Freq PRN Reason Stop Dose Admin Acetamino
--- NOTE | 2023-05-25 11:23 | PCNWS ---
Weekly nutritional screen. Patient is tolerating current Heart healthy diet with adequate intake at 50-100% all meals, reports good appetite and intake, no interested in any supplements. No weight loss reported. No nutritional needs at this time.
--- NOTE | 2023-05-25 11:35 | PCOTNOTE ---
Attempted to see Patient for A.M. treatment session. Patient declined at this time due to having an IV going and is waiting to have her lunch while sitting up in the bedside chair . Will check back at a later time.
--- NOTE | 2023-05-25 12:43 | PM.DS ---
DS: Admitting Diagnosis Discharge Date 05/25/2023 Admitting Diagnosis Fracture of femoral neck left, fall from level, diastolic dysfunction, left bundle branch block DS: Discharge Diagnosis Discharge Diagnosis (1) Fracture of femoral neck, left: Qualifiers: Encounter type: initial encounter Fracture type: closed Qualified Code(s): S72.002A - Fracture of unspecified part of neck of left femur, initial encounter for closed fracture Code(s): S72.002A - Fracture of unspecified part of neck of left femur, initial encounter for closed fracture Status: Acute (2) Primary hypertension: Code(s): I10 - Essential (primary) hypertension Status: Acute (3) Hyponatremia: Code(s): E87.1 - Hypo-osmolality and hyponatremia Status: Chronic (4) UTI (urinary tract infection): Code(s): N39.0 - Urinary tract infection, site not specified Status: Acute DS: Summary Hospital Course Reason for hospitalization: Patient was admitted to hospital for left hip fracture after she slipped off a curb rolled her right ankle and fell onto her left hip. Hospital Course: Patient was admitted for left fracture. Patient underwent left hip hemiarthroplasty with bipolar prosthesis on 05/18. She did well postoperatively but she was very hesitant to work with therapy. She progressed slowly with therapy and was interested in going to [facility] but her insurance denied this plan of care. Patient appealed the denial and a peer to peer was completed that resulted in a 2nd denial inpatient rehabilitation at [facility]. The patient began a 2nd appeal. Meanwhile, patient changed her mind about [facility] and wanted to go to SNF at [facility]. Again, insurance authorization was pending. During this time patient was found to have a urinary tract infection and she received 3 days treatment IV Rocephin. Otherwise patient continued to progress with therapy very well was just scared to try to raise leg upon to the bed by herself. Eventually on day of discharge patient decided that she could go home and have home health therapy instead. Status at Discharge Cognitive/behavioral status at discharge: Awake alert oriented Functional status at discharge: uses cane/walker Overall status at discharge: patient is progressing back to baseline Time Spent with Patient Time attestation: Total time spent providing and/or coordinating discharge services:35 minutes Time spent: Greater than 30 minutes Exam Narrative: GENERAL: Generally well appearing, alert and oriented, in no apparent distress. She is pleasant and conversant in full sentences. HEENT: Pupils are equally round and briskly reactive to light. Extraocular muscles are intact. Oral mucous membranes are moist without lesions. NECK: The patient has no noted JVD. No adenopathy is appreciated. CHEST/LUNGS: Lungs are clear bilaterally without rhonchi, rales, or wheezes. There is no subcutaneous air appreciated. HEART: The patient has a regular rate and rhythm. No murmurs, rubs, or gallops are appreciated. Distal pulses are 2+. ABDOMEN: The patient's abdomen is soft, nontender, and nondistended. Bowel sounds are positive. No peritoneal signs. EXTREMITIES: The patient has no peripheral edema. There is no focal long bone tenderness or deformity. left hip bandage clean dry and intact, pain with palpation near surgical site SKIN: The patient's skin is warm and dry, without rashes or lesions. PSYCHIATRIC: The patient has normal mental status and has an appropriate affect. NEUROLOGIC: There are no gross deficits to the cranial nerves. Patient ambulates very slowly with walker, unable to lift her legs up onto the bed herself DS: Data Data Completed and Pending Labs on day of discharge: Labs from last 24 hours 05/25/23 06:26 WBC 11.2 H RBC 3.16 L Hgb 9.8 L Hct 30.6 L MCV 96.8 MCH 31.0 MCHC 32.0 RDW 13.8 Plt Count 371 MPV 8.9 Immatur
[2023-05-25 14:00] VITALS: BP 110/48; PULSE 80; RESP 14; TEMP 36.8; O2SAT 97
== END 2023-05-25 15:20 | disposition home health service (06) | DRG 522 ==
LOC: ANHED 21:21 → ANH3MEDSUR 23:44
PROVIDERS: Internal Medicine; Orthopaedic Surgery; Admitting Provider Internal Medicine; Emergency Provider Physician Assistant; PCP Nurse Practitioner Family; Visit Provider Nurse Practitioner
PROC: 0SRS01A Replacement of Left Hip Joint, Femoral Surface with Metal Synthetic Substitute, Uncemented, Open Approach (ICD-10-PCS; CPT 27125; principal; 2023-05-18 15:00)
DX: S72.092A Other fracture of head and neck of left femur, initial encounter for closed fracture (principal); E87.1 Hypo-osmolality and hyponatremia; N39.0 Urinary tract infection, site not specified; B96.20 Unspecified Escherichia coli [E. coli] as the cause of diseases classified elsewhere; I10 Essential (primary) hypertension; S50.312A Abrasion of left elbow, initial encounter; W01.0XXA Fall on same level from slipping, tripping and stumbling without subsequent striking against object, initial encounter; E78.5 Hyperlipidemia, unspecified; M15.9 Polyosteoarthritis, unspecified; I44.7 Left bundle-branch block, unspecified; M85.80 Other specified disorders of bone density and structure, unspecified site; K52.831 Collagenous colitis; I51.7 Cardiomegaly; D72.829 Elevated white blood cell count, unspecified
CPT/HCPCS: 36415; 71045; 71046; 73501; 73502; 80048; 80053; 81001; 83880; 85025; 85610; 85730; 87077; 87086; 87186; 93005; 96374; 96375; 96376; 97110; 97116; 97161; 97165; 97530; 97535; 99285; A9270; C1776; C9113; G0378; J0171; J0330; J0360; J0690; J0696; J1100; J1170; J1885; J2270; J2405; J2550; J2704; J2795; J3010; J3480; J7030; J7040; J7120

== ENCOUNTER 2023-08-24 13:58 | Emergency (ER) | payer MEDICARE, SELFPAY ==
--- NOTE | ~2023-08-24 | XR_ITS ---
XR humerus RT DATE: 08/24/2023 15:22 INDICATION: Fall today TECHNIQUE: AP and lateral views COMPARISON: None FINDINGS: There is a comminuted fracture the proximal humerus including fracture through the greater tuberosity and mildly anteriorly displaced transverse surgical neck fracture. Normal alignment at the acromioclavicular and glenohumeral and elbow joints. IMPRESSION: Comminuted proximal humeral fracture including fracture greater tuberosity and mildly ant eriorly displaced transverse surgical neck fracture Reviewed, dictated and finalized at location L. ER WORKER IMPRESSION: Comminuted proximal humeral fracture including fracture greater tub erosity and mildly anteriorly displaced transverse surgical neck fracture
--- NOTE | 2023-08-24 14:29 | ED.UPPEXIN ---
HPI - Extremity Injury (Upper) General Chief Complaint: Extremity Injury, Upper Stated Complaint: rt arm injury Time Seen by Provider: 08/24/23 14:45 Source: patient, RN notes reviewed and old records reviewed Mode of arrival: ambulatory Limitations: no limitations History of Present Illness HPI narrative: 83-year-old female presents to the [facility] with complaints right upper arm pain. Patient states that she was walking, bumped into a wall and then fell onto her arm. Denies hitting head. No loss of consciousness. Pain and decreased range of motion at the shoulder. Full range of motion of the elbow, wrist. Strong signaler noted. Sensation intact, capillary refill under 2 seconds a positive radial pulse noted. Minor swelling noted at the proximal humerus. No contusion it is, erythema or ecchymosis noted Happened around 12:00 p.m. today, approximately 2 hours prior to arrival MD complaint: injury to: right and arm Treatments prior to arrival: other (Tylenol) Related Data Home Medications Medication Instructions Recorded Confirmed lactobacillus combination no.4 3 3,000 mmu cells PO DAILY 05/14/21 08/24/23 billion cell capsule (Probiotic) budesonide 3 mg 6 mg PO DAILY 06/24/23 08/24/23 capsule,delayed,extended release cetirizine 10 mg capsule (Zyrtec) 10 mg PO DAILY PRN Allergy Symptoms 06/24/23 08/24/23 multivitamin (Daily Multi-Vitamin 1 tablet PO DAILY 06/24/23 08/24/23 tablet) polyethylene glycol 3350 17 gram 17 g PO QAM PRN Constipation 06/24/23 08/24/23 oral powder packet (Miralax) Allergies Allergy/AdvReac Type Severity Reaction Status Date / Time codeine AdvReac Intermediate Nausea and Verified 08/24/23 14:23 Vomiting Review of Systems Review of Systems: All systems reviewed & are unremarkable except as noted in HPI and below Constitutional: Constitutional: Reports no additional constitutional complaints Eyes: Eyes: Reports no additional eye complaints ENT: Reports system reviewed and no additional complaints, except as documented Cardiovascular: Cardiovascular: Reports no additional cardiovascular complaints, Denies chest pain and Denies dyspnea Respiratory: Respiratory: Reports no additional respiratory complaints, Denies chest congestion, Denies cough and Denies dyspnea Gastrointestinal: Gastrointestinal: Reports no additional gastrointestinal complaints, Denies abdominal pain, Denies nausea and Denies vomiting Musculoskeletal: Musculoskeletal: Reports as per HPI and Reports arthralgias Integumentary/Breasts: Skin/Breast: Reports system reviewed and no additional complaints, except as docu Neurologic: Reports system reviewed and no additional complaints, except as documented Psychiatric: Psychiatric: Reports no additional psychiatric complaints Allergic/Immunologic: Allergic/Immunologic: Reports no additional allergic/immunologic complaints PMFSH Past Medical History Medical History Chronic allergic rhinitis Chronic venous insufficiency of lower extremity Collagenous colitis Constipation, chronic Elevated brain natriuretic peptide (BNP) level Fall from ground level (~04/2023) Hyperlipidemia LDL goal <100 Hypertension Inflammatory arthritis Osteoarthritis, multiple sites Osteopenia DEXA scan 2020 Overweight (BMI 25.0-29.9) Plantar fasciitis of left foot Primary hypertension Tendonitis Trigger finger, left ring finger Trigger finger, right little finger Vitamin D deficiency Surgical History Surgical History History of carpal tunnel release History of cataract surgery (~2013) History of hand surgery bilateral trigger finger releases, left carpal tunnel release, right first dorsal compartment release Hx of section S/P hip hemiarthroplasty Trigger finger, right ring finger Right fourth trigger finger release September 07, 2022 Family History Family His
[2023-08-24 14:34] VITALS: BP 104/46; PULSE 59; RESP 18; TEMP 36.1; O2SAT 96
== END 2023-08-24 15:56 | disposition home or self-care (01) ==
PROVIDERS: Emergency Provider Nurse Practitioner; PCP Family Medicine
DX: S42.201A Unspecified fracture of upper end of right humerus, initial encounter for closed fracture (principal); E78.5 Hyperlipidemia, unspecified; I10 Essential (primary) hypertension; Z79.899 Other long term (current) drug therapy; W22.01XA Walked into wall, initial encounter
CPT/HCPCS: 73060; 99214; A4565; G0463

== ENCOUNTER 2023-10-18 07:24 | Outpatient (CLI) | payer MEDICARE, SELFPAY ==
[2023-10-18 09:42] LABS: Anion Gap 8 mmol/L (8-16); Blood Urea Nitrogen 22 mg/dL (7-17); Calcium 9.3 mg/dL (8.4-10.2); Carbon Dioxide 27 mmol/L (22-30); Chloride 101 mmol/L (98-107); Estimated Glomerular Filt Rate > 60; Glucose 110 mg/dL (65-110); Potassium 3.3 mmol/L (3.4-5.0); Sodium 136 mmol/L (137-145)
== END 2023-10-18 07:25 | disposition home or self-care (01) ==
PROVIDERS: PCP Family Medicine; Visit Provider Internal Medicine Cardiovascular Disease
DX: R60.0 Localized edema (principal)
CPT/HCPCS: 36415; 80048; 83735

== ENCOUNTER 2023-12-29 08:15 | Outpatient (CLI) | payer MEDICARE, SELFPAY ==
[2023-12-29 08:41] LABS: Hematocrit 39.9 % (37.0-47.0); Hemoglobin 12.5 g/dL (12.0-15.0); Mean Corpuscular HGB Conc 31.3 g/dl (32-36); Mean Corpuscular Hemoglobin 28.1 pg (26-34); Mean Corpuscular Volume 89.7 fl (80-100); Platelet Count Result 403 k/mm3 (150-375); Red Blood Count 4.45 M/mm3 (4.2-5.4); Red Cell Distribution Width 14.3 % (11.5-14.5)
[2023-12-29 08:47] LABS: Alanine Aminotransferase 17 U/L (6-35); Albumin Level 4.4 g/dL (3.5-5.1); Alkaline Phosphatase 59 U/L (38-126); Anion Gap 4 mmol/L (4-12); Aspartate Amino Transferase 24 U/L (14-36); Bilirubin,Total 0.5 mg/dL (0.2-1.3); Blood Urea Nitrogen 27 mg/dL (7-17); Calcium 9.2 mg/dL (8.4-10.2); Carbon Dioxide 30 mmol/L (22-30); Chloride 100 mmol/L (98-107); Cholesterol 160 mg/dL (0-200); Estimated Glomerular Filt Rate > 60; Glucose 99 mg/dL (65-110); HDL Direct 77 mg/dL; Potassium 3.8 mmol/L (3.4-5.0); Sodium 134 mmol/L (137-145); Triglycerides 135 mg/dL (<150)
[2023-12-29 08:58] LABS: LDL Cholesterol Direct 70 mg/dL
== END 2023-12-29 08:16 | disposition home or self-care (01) ==
PROVIDERS: PCP Family Medicine; Visit Provider Nurse Practitioner
DX: E55.9 Vitamin D deficiency, unspecified (principal); E66.3 Overweight; K58.2 Mixed irritable bowel syndrome; Z00.00 Encounter for general adult medical examination without abnormal findings
CPT/HCPCS: 36415; 80053; 80061; 82306; 84443; 85027

== ENCOUNTER 2024-02-02 10:55 | Outpatient (CLI) | payer MEDICARE, SELFPAY ==
[2024-02-02 11:16] LABS: Basophils Absolute Auto 0.1 K/mm3 (0.0-0.1); Basophils Percent Auto 0.5 % (0.2-1.2); Eosinophils Absolute Auto 0.2 K/mm3 (0-0.3); Eosinophils Percent Auto 1.4 % (0-4.4); Hematocrit 40.1 % (37.0-47.0); Hemoglobin 12.8 g/dL (12.0-15.0); Immature Granulocyte Percent A 0.9 % (0-0.5); Lymphocytes Absolute Auto 5.17 K/mm3 (0.9-3.2); Lymphocytes Percent Auto 44.7 % (18.3-44.2); Mean Corpuscular HGB Conc 31.9 g/dl (32-36); Mean Corpuscular Hemoglobin 28.5 pg (26-34); Mean Corpuscular Volume 89.3 fl (80-100); Mean Platelet Volume 8.6 fl (7.4-10.4); Monocytes Absolute Auto 0.9 K/mm3 (0.1-0.6); Monocytes Percent Auto 7.8 % (2.6-8.5); Neutrophils Absolute Auto 5.2 K/mm3 (1.3-6.7); Neutrophils Percent Auto 44.7 % (45.5-73.1); Platelet Count Result 343 k/mm3 (150-375); Red Blood Count 4.49 M/mm3 (4.2-5.4); Red Cell Distribution Width 16.3 % (11.5-14.5); White Blood Count 11.6 K/mm3 (4.5-10.0)
[2024-02-02 17:51] LABS: Iron 90 ug/dL (37-170)
[2024-02-02 18:00] LABS: Percent Iron Saturation 22 % (20-50)
[2024-02-02 18:22] LABS: Alanine Aminotransferase 17 U/L (6-35); Albumin Level 4.6 g/dL (3.5-5.1); Alkaline Phosphatase 53 U/L (38-126); Anion Gap 5 mmol/L (4-12); Aspartate Amino Transferase 28 U/L (14-36); Bilirubin,Total 0.5 mg/dL (0.2-1.3); Blood Urea Nitrogen 26 mg/dL (7-17); CRP < 0.5 mg/dL (<1.0); Calcium 9.5 mg/dL (8.4-10.2); Carbon Dioxide 31 mmol/L (22-30); Chloride 100 mmol/L (98-107); Estimated Glomerular Filt Rate > 60; Glucose 88 mg/dL (65-110); Lactate Dehydrogenase 217 U/L (120-246); Potassium 3.7 mmol/L (3.4-5.0); Sodium 136 mmol/L (137-145)
[2024-02-02 19:25] LABS: Folic Acid 11.6 ng/mL (2.76->20)
[2024-02-02 20:51] LABS: Erythrocyte Sedimentation Rate 15 mm/hr (0-20)
[2024-02-05 05:57] LABS: Methylmalonic Acid 274 nmol/L (87-318)
[2024-02-10 17:18] LABS: Soluble Transferrin Receptor 1.48 mg/L (0.76-1.76)
== END 2024-02-02 10:56 | disposition home or self-care (01) ==
LOC: ANHLAB 10:59
PROVIDERS: PCP Family Medicine; Visit Provider Nurse Practitioner Family
DX: D72.829 Elevated white blood cell count, unspecified (principal); D50.9 Iron deficiency anemia, unspecified
CPT/HCPCS: 36415; 80053; 82607; 82728; 82746; 83540; 83550; 83615; 83921; 84238; 85025; 85652; 86140; 88184

== ENCOUNTER 2024-04-12 07:39 | Outpatient (CLI) | payer MEDICARE, SELFPAY ==
[2024-04-12 08:17] LABS: Basophils Absolute Auto 0.1 K/mm3 (0.0-0.1); Basophils Percent Auto 0.5 % (0.2-1.2); Eosinophils Absolute Auto 0.2 K/mm3 (0-0.3); Eosinophils Percent Auto 1.9 % (0-4.4); Hematocrit 42.1 % (37.0-47.0); Hemoglobin 13.5 g/dL (12.0-15.0); Immature Granulocyte Absolute 0.07 K/mm3 (0.00-0.031); Immature Granulocyte Percent A 0.7 % (0-0.5); Lymphocytes Absolute Auto 4.64 K/mm3 (0.9-3.2); Lymphocytes Percent Auto 47.5 % (18.3-44.2); Mean Corpuscular HGB Conc 32.1 g/dl (32-36); Mean Corpuscular Hemoglobin 30.3 pg (26-34); Mean Corpuscular Volume 94.6 fl (80-100); Mean Platelet Volume 8.9 fl (7.4-10.4); Monocytes Absolute Auto 0.7 K/mm3 (0.1-0.6); Monocytes Percent Auto 7.3 % (2.6-8.5); Neutrophils Absolute Auto 4.1 K/mm3 (1.3-6.7); Neutrophils Percent Auto 42.1 % (45.5-73.1); Platelet Count Result 325 k/mm3 (150-375); Red Blood Count 4.45 M/mm3 (4.2-5.4); Red Cell Distribution Width 14.6 % (11.5-14.5); White Blood Count 9.8 K/mm3 (4.5-10.0)
== END 2024-04-12 07:40 | disposition home or self-care (01) ==
PROVIDERS: PCP Family Medicine; Visit Provider Nurse Practitioner Family
DX: D72.829 Elevated white blood cell count, unspecified (principal)
CPT/HCPCS: 36415; 85025; 88271; 88275

== ENCOUNTER 2024-04-20 09:00 | Outpatient (CLI) | payer MEDICARE, SELFPAY ==
--- NOTE | ~2024-04-20 | NM_ITS ---
EXAMINATION: NM zen stress w perfusion DATE: 04/20/2024 14:22 CDT INDICATION: Dyspnea TECHNIQUE: Rest images were obtained following intravenous administration of 10.1 mCi Tc99m tetrofosm in (Myoview). The patient was infused intravenously with Lexiscan (regadenoson). Then, 34 mCi Tc99m t etrofosmin (Myoview) was administered intravenously, and stress images were obtained. Data was recons tructed into short axis and horizontal and vertical long axis SPECT images. Gated SPECT images were a lso obtained. COMPARISON: None. FINDINGS: There is no definite reversible or fixed perfusion abnormality to suggest ischemia or infar ction. There is no segmental wall motion abnormality. Left ventricular ejection fraction measures 7 3%. IMPRESSION: 1. No definite ischemia or infarct. 2. Normal left ventricular ejection fraction measuring 73%. Reviewed, dictated and finalized at location B.
--- NOTE | 2024-04-20 09:15 | EST_ITS ---
Patient Info Name: Maya Reaves Age: 84 years : 1940 Gender: Female Ht: 60 in Wt: 143 lbs BSA: 1.68 m2 HR: 71 bpm BP: 177 / 72 mmHg Heart Rhythm: Left Bundle Branch Block Exam Date: 04/20/2024 10:35 AM Exam Location: Echo Lab Patient Status: Outpatient Admit Date: 04/20/2024 Staff Ordering Physician: Marquise Maddox DO Attending Provider: Marquise Maddox DO Exercise Technologist: Amisha Rojas CT Exercise Physician: Marquise Maddox DO Exam Type: CA stress zen w NM Study Info Indications R06.09 - Other forms of dyspnea A regadenoson stress test was performed. Summary 1. 1. Inconclusive lexiscan stress test for ischemic ST changes by ECG criteria due to LBBB. 2. 2. Baseline hypertension. 3. 3. Nuclear scan to follow and will be reported separately. Please correlate with it. 4. 4. Patient informed of the above results. Protocol: Lexiscan Stress ECG Details Stage: REST Duration (min): 4 min : 40 sec HR (bpm): 69 SBP (mmHg): 177 DBP (mmHg): 81 Stage: REST Duration (min): 14 min : 28 sec HR (bpm): 70 SBP (mmHg): 177 DBP (mmHg): 81 Stage: STAGE 1 Duration (min): 0 min : 59 sec HR (bpm): 80 SBP (mmHg): 177 DBP (mmHg): 81 Stage: RECOVERY Duration (min): 1 min : 0 sec HR (bpm): 81 SBP (mmHg): 189 DBP (mmHg): 65 Stage: RECOVERY Duration (min): 2 min : 0 sec HR (bpm): 80 SBP (mmHg): 189 DBP (mmHg): 65 Stage: RECOVERY Duration (min): 3 min : 0 sec HR (bpm): 77 SBP (mmHg): 189 DBP (mmHg): 65 Stage: RECOVERY Duration (min): 4 min : 0 sec HR (bpm): 75 SBP (mmHg): 185 DBP (mmHg): 69 Stage: RECOVERY Duration (min): 5 min : 0 sec HR (bpm): 72 SBP (mmHg): 178 DBP (mmHg): 69 Stage: RECOVERY Duration (min): 5 min : 34 sec HR (bpm): 75 SBP (mmHg): 178 DBP (mmHg): 69 Rest HR: 70 bpm Peak HR: 84 bpm Rest Sys BP: 177 mmHg Peak Sys BP: 189 mmHg Max Pred HR: 135 bpm % Max Pred HR: 62 % Target HR: 115 bpm Max RPP: 15,876 bpm*mmHg Termination Reason: Completed protocol Cardiac Symptoms: Shortness of breath Total Time: 1 min : 0 sec Rest Harmon BP: 81 mmHg Peak Harmon BP: 65 mmHg Total Dose: 0.4 mg Resting ECG Sinus rhythm, LBBB. Stress ECG No ST changes. Arrhythmias None. Report Signatures
== END 2024-04-20 09:01 | disposition home or self-care (01) ==
LOC: ANHCARD 09:02
PROVIDERS: PCP Family Medicine; Visit Provider Internal Medicine Cardiovascular Disease
DX: R06.09 Other forms of dyspnea (principal); I44.7 Left bundle-branch block, unspecified; I10 Essential (primary) hypertension
CPT/HCPCS: 78452; 93017; A9502; J2785

== ENCOUNTER 2024-07-06 14:32 | Outpatient (CLI) | payer MEDICARE, SELFPAY ==
--- NOTE | ~2024-07-06 | MM_ITS ---
EXAMINATION: MM screening [facility] BI w ilsa HISTORY: Screening mammogram TECHNIQUE: Craniocaudal and mediolateral oblique 3-D tomosynthesis images were obtained and synthetic 2-D images were generated. CAD analysis was submitted and interpreted. COMPARISON: 05/27/2022, 04/03/2021, 02/14/2020 BREAST PARENCHYMAL COMPOSITION:Not Dense. There are scattered areas of fibroglandular density. FINDINGS: No suspicious mass, calcification, or architectural distortion are identified in either camron ast to suggest malignancy. There has been no suspicious interval change. IMPRESSION: No mammographic evidence of malignancy. Recommend routine screening mammography in one year. BI-RADS Category 1: Negative Reviewed, dictated and finalized at location . ER CLIPPER
== END 2024-07-06 14:33 | disposition home or self-care (01) ==
PROVIDERS: PCP Family Medicine; Visit Provider Family Medicine
DX: Z12.31 Encounter for screening mammogram for malignant neoplasm of breast (principal)
CPT/HCPCS: 77063; 77067

== ENCOUNTER 2025-01-01 09:52 | Outpatient (CLI) | payer MEDICARE, SELFPAY ==
--- OUTSIDE RECORDS SUMMARY | 2025-01-01 10:00 | XMS_ITS | Continuity of Care Document ---
Author Organization [employer] [facility] [facility] Address [address] [place] [address] [place] [id number] Phone Care Team Providers Care Retail Link Analyst Name Role Phone [facility], [employer] Unavailable Unavail able Cintia Petty Unavailable Unavailable [...] Diagnoses Date Provider Providers Copied on Encounter [facility], [address] [place] [address] [address], [place], [place], [address], [place] tel:[phone] [facility] No Information Nov-2 9-201 0 [facility] . [address], [address], [place], [place], [address], [place]. tel:[phone] Referring Provider: Abiodun Flores, [address], [place], [address]. tel:[phone] g Provider: Cintia Petty, [address] [place], [address]. tel:[phone] [facility], [address], [place], [place], [address], [place] tel:[phone] [facility] No Information Nov-2 4-201 0 Doisy Edcassie. [address], [place], [address], [place]. tel:[phone] [facility], [address] [place] [address] [address], [place], [place], [address], [place] tel:[phone] [facility] No Information Oct-2 6-201 0 [facility] . [address], [address], [place], [place], [address], [place]. tel:[phone] Referring Provider: Abiodun Flores, [address], [place], [address]. tel:[phone] g Provider: Cintia Petty, [address] [place], [address]. tel:[phone] [facility], [address], [place], [place], [address], [place] tel:[phone] [facility] No Information Sep-2 9-201 0 Doisy Edcassie. [address] , [address], [place], [address], [place]. tel:[phone] [facility], [address], [place], [place], [address], [place] tel:[phone] [facility] No Information Aug-1 9-200 9 [facility] . [address], [address], [place], [address], . tel:[phone] Referring Provider: Abiodun Flores, [address], [place], [address]. tel:[phone] g Provider: Cindy Salgado, [address] [place], [place], [facility]. tel:[phone] [facility], [address], [place], [place], [address], [place] tel:[phone] [facility] No Information Mar- 0-200 9 Doisy Abiodun. [address] , [address], [place], [address], [place]. tel:[phone] Referring Provider: Abiodun Flores, [address], [place], [address]. tel:[phone] Office/outpat ient Visit, Est [facility], [address], [place], [place], [address], [place] tel:[phone] [facility] No Information Oct-2 0-200 8 Doisy Edcassie. [facility] , [address], [place], [address], [place]. tel:[phone] [facility], [address], [place], [place], [address], [place] tel:[phone] [facility] No Information Mar-1 3-200 8 [facility] . [address], [address], [place], [place], [address], [place]. tel:[phone] Referring Provider: Abiodun Flores, [address], [place], [address]. tel:[phone] g Provider: Cindy Salgado, [address] [place], [address]. tel:[phone] [facility], [address], [place], [place], [address], [place] tel:[phone] [facility] No Information 8 Deniz Rascon. [address], [place], [address], [place]. tel:[phone] [facility], [address], [place], [place], [address], [place] tel:[phone] [facility] No Information 7 [facility] . [address], [address], [place], [place], [address], [place]. tel:[phone] Consulting Provider: Cintia Petty, [address] [place] [address], [address]. tel:[phone] [facility], [address], [place], [place], [address], [place] tel:[phone] [facility] No Information 7 [facility] . [address], [address], [place], [place], [address], [place]. tel:[phone] Referring Provider: Abiodun Flores, [address], [place], [address]. tel:[phone] g Provider: Cintia Petty, [address] [place], [address]. tel:[phone] [facility], [address], [place], [place], [address], [place] tel:[phone] [facility] No Information 0-200 7 Deniz Rascon. [address] , [address], [place], [address], [place]. tel:[phone] Family History Family Member Type Diagnosis Age At Onset No Information Payers Payer name Insurance type Covered libertarian ID Authoriza tion(s) No Information Social History [...]
--- OUTSIDE RECORDS SUMMARY | 2025-01-01 10:00 | XMS_ITS | Clinical Summary ---
Author Organization [facility] Address [address] [place] [address] Care Team Providers Care Arterial Embalmer Name Role Phone Marija Jasso MD Primary Care Provider Source Comments [facility],non-owned Affiliates and Associated Physician Practices is amultiple site organization consisting of ambulatory clinics and hospital sitesin [place], [place], [place] and [place]. This disclosure is being madepursuant to the Care Everywhere program and may not contain all information available regarding this patient. Last updated 18.[facility] Allergies Active Allergy Reactions Criticality Noted Date Comments Codeine Nausea and/or Vomiting,Dizziness Medications * Be aware that medications may not be up to date on this document. Alwaysverify current medications with the patient. losartan-hydro CHLOROthiazide (Hyzaar) 100-25 MG tablet Take 1 (one) tablet by mouth once daily 3 Active Verapamil HCl CR 360 MG Take 1 (one) tablet by mouth once daily 4 Active budesonide (Entocort EC) 3 MG capsule Take 3 (three) capsules by mouth once daily 3 Active acetaminophen (Tylenol) 325 MG tablet TAKE 2 TABLETS BY MOUTH EVERY 4 HOURS NEEDED FOR PAIN OR FEVER 3 Active SIMVASTATIN PO Take by mouth once daily Active apixaban (Eliquis) 2.5 MG tablet Take 1 (one) tablet by mouth 2 times daily for 29 days 58 tablet 4 Active oxyCODONE, immediate release, (Roxicodone) 5 MG tabletIndicati ons:Status post surgery Take 1 (one) tablet by mouth every 6 hours as needed for Pain 42 tablet 4 Active ondansetron, disintegrating , (Zofran ODT) 4 MG tablet Take 1 (one) tablet by mouth every 8 hours as needed for Nausea/Vomiting Allow tablet to dissolve on the tongue 30 tablet 4 Active polyethylene glycol 3350 (Miralax) 17 g packet Take 17 (seventeen) g by mouth once daily 14 packet 4 Active acetaminophen (Tylenol) 500 MG tablet Take 1 (one) tablet by mouth every 6 hours as needed for Pain Maximum allowable Acetaminophen amount = 4 Grams (4000 mg) / 24 hours. 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 Never 09/10/2023 Q2: How many drinks containi ng alcohol do you have on a typical day when you are drinking? Patient does not drink Q3: How often do you have si x or more drinks on one occasion? Never 09/10/2023 Comments Unknown Sex and Gender Information Value Date Recorded Sex Assigned at Not on file Legal Sex Female 5:32 PM PERSONNEL OFFICER Gender Identity Not on file Sexual Orientation Not on file Last Filed Vital Signs Vital Sign Reading Time Taken Comments Blood Pressure 134/63 09/22/2023 8:02 AM PERSONNEL OFFICER Pulse 82 09/22/2023 10:25 AM PERSONNEL OFFICER Temperature 36.7 C (98.1 F) 09/22/2023 8:02 AM PERSONNEL OFFICER Respiratory Rate 18 09/22/2023 8:02 AM PERSONNEL OFFICER Oxygen Saturation 93% 09/22/2023 10:25 AM PERSONNEL OFFICER Inhaled Oxygen Concentration - - Weight 59 kg (130 lb) 09/20/2023 4:48 PM PERSONNEL OFFICER Height 152.4 cm (5') 09/20/2023 4:48 PM PERSONNEL OFFICER Body Mass Index 25.39 09/20/2023 4:48 PM PERSONNEL OFFICER Plan of Treatment Upcoming Encounters Date Type Department Care Team (Late st Contact Info) Description 09/14/2025 8:30 AM PERSONNEL OFFICER Office Visit [facility] [address] [place] [address] Angel Rendon MD [address] [facility] [address] [place] [address] Health Maintenance Due Date Last Done Comments BONE DENSITY TESTING 1940 DTAP/TDAP/TD VACCINES (1 - Tdap) 1958 PNEUMOCOCCAL VACCINE 50+ (1 of 1 - PCV) 1989 ZOSTER VACCINE (1 of 2) 1989 Respiratory Syncytial Virus (RSV) Vaccine Pt: or over 60 yrs (1 - 1-dose 75+ series) 2014 COVID-19 VACCINE ( season) 2024 06/10/2022, 07/08/2021, 11/04/2020, Additional history exists DEPRESSION SCREENING 08/23/2024 MEDICARE AWV CALENDAR YEAR 2024 INFLUENZA VACCINE (Season Ended) 2025 07/06/2023, 05/19/2022, 04/21/2021, Additional history exists HEPATITIS B VACCINE Aged Out No longe r eligible based on patient's age to complete this topic HIB VACCINE Aged Out No longer eligi ble based on patient's age to complete this topic HPV VACCINE Aged Out No longer eligi ble based on patient's age to complete this topic MENINGOCOCCAL (Group B) VACCINE SHARED DECISION-MAKING Aged Out No longer eligible based on patient's age to complete this topic MENINGOCOCCAL GROUPS A/C/Y/W VACCINE Aged Out No longer eligible based on patient's age to complete this topic Medical Devices Implanted Type Area Launderette Attendant Device Identifier Shelf Expiration Date Model / Serial / Lot 3.5mm Non-Locking Screw Implanted:Qty: 1 on 09/20/2023 by Angel Rendon MD at [facility] Right: Shoulder 08/12/2027 [id number] / / [id number] Poly Implanted:Qty: 1 on 09/20/2023 by Angel Rendon MD at [facility] Right: Shoulder 05/09/2028 [id number] / / [id number] Bsplt Glnd Cmprh 25 Mm Mini Shldr Tpr Ad Implanted:Qty: 1 on 09/20/2023 by Angel Rendon MD at [facility] Right: Shoulder [employer] 08/24/2033 [id number] / / [id number] Reverse Shoulder Non-Locking Screw 3.5mm Implanted:Qty: 1 on 09/20/2023 by Angel Rendon MD at [facility] Right: Shoulder 02/04/2033 [id number] / / [id number] Screw 6.5mm 30mm 3.5mm Cntr Hex Shldr Implanted:Qty: 1 on 09/20/2023 by Angel Rendon MD at [facility] Right: Shoulder [employer] 05/22/2033 [id number] / / [id number] Screw 4.75mm 15mm 3.5mm Lck Fx Ang Hex Implanted:Qty: 1 on 09/20/2023 by Angel Rendon MD at [facility] Right: Shoulder [employer] 07/29/2033 [id number] / / [id number] Screw 4.75mm 15mm 3.5mm Lck Fx Ang Hex Implanted:Qty: 1 on 09/20/2023 by Angel Rendon MD at [facility] Right: Shoulder [employer] 06/29/2033 [id number] / / [id number] [place] Sut Jggrknt Mxbrd 2.9mm 2 Ld Sft Implanted:Qty: 1 on 09/20/2023 by Angel Rendon MD at [facility] Right: Shoulder [employer] 02/07/2024 [id number] / / [id number] Humeral Stem Implanted:Qty: 1 on 09/20/2023 by Angel Rendon MD at [facility] Right: Shoulder 06/15/203321-1095-678- [id number] Cmpnt Glnd 36mm Std Glenosphere Clr Cd Implanted:Qty: 1 on 09/20/2023 by Angel Rendon MD at [facility] Right: Shoulder [employer] 02/17/2033 [id number] / / [id number] Explanted Type Area Launderette Attendant Device Identifier Shelf Expiration Date Model / Serial / Lot Poly Explanted:Qty: 1 on 09/20/2023 by Angel Rendon MD at [facility] Right: Shoulder 07/21/20284349- [id number] Insurance [facility] MANAGED MEDICARE ADV * Guarantor: MAYA REAVES Account Type Relation to Patient Date of Phone Billing Address Personal/Family [address] [place] [address] SELF PAY NO INSURANCE Member Subscriber Plan / Payer (Ef fective for All Dates) Name:Maya Reaves Member ID:Not on file Relation to Subscriber:Not on file Name:MAYA REAVES Subscriber ID:Not on file Address: [address] [place] [address] Payer ID:Not on file Group ID:Not on file Type:Self Pay Address: [facility] MANAGED MEDICARE ADV * Guarantor: MAYA REAVES Account Type Relation to Patient Date of Phone Billing Address Personal/Family [address] [place] [address] SELF PAY NO INSURANCE Member Subscriber Plan / Payer (Ef fective for All Dates) Name:Lashawn Reaveskavin Flores Member ID:Not on file Relation to Subscriber:Not on file Name:REAVESMAYA Subscriber ID:Not on file Address: [address] [place] [address] Payer ID:Not on file Group ID:Not on file Type:Self Pay Address: [facility] MANAGED MEDICARE ADV * Guarantor: MAYA REAVES Account Type Relation to Patient Date of Phone Billing Address Personal/Family [address] [place] [address] SELF PAY NO INSURANCE Member Subscriber Plan / Payer (Ef fective for All Dates) Name:Maya Reaves Member ID:Not on file Relation to Subscriber:Not on file Name:MAYA REAVES Subscriber ID:Not on file Address: [address] [place] [address] Payer ID:Not on file Group ID:Not on file Type:Self Pay Address: [facility] MANAGED MEDICARE ADV Advance Directives Documents on File Type Date Recorded Patient Rn Occupational Expl anation Adv Directive/Living Will/POA 09/23/2023 5:30 PM * Full Code (Latest Code Status on File) Date Activated Date Inactivated Comments 09/20/2023 2:22 PM 09/22/2023 1:06 PM Care Teams Arterial Embalmer Relationship Specialty Start Date End Date Marija Jasso MD [address] [address] [facility] [facility] [address] [address] [address] [place] [address] PCP - General Family Medicine 09/10/23
--- OUTSIDE RECORDS SUMMARY | 2025-01-01 10:00 | XMS_ITS | Clinical Summary ---
Author Organization [facility] Address [address] [place] [address] Care Team Providers Care Duplicating Machine Mechanic Name Role Phone Marija Jasso MD Primary Care Provider Allergies Active Allergy Reactions Criticality Noted Date Comments Codeine Dizziness,Nausea and Vomiting Low 2023 Tramadol Unknown 02/02/2024 Medications budesonide (ENTOCORT EC) 3 mg Enteric Coated 24 hour capsule Take 9 mg by mouth daily. 06/17/2023 Active losartan-hydroCH LOROthiazide (HYZAAR) 100-25 mg tablet Take 1 Tablet by mouth daily. 06/25/2023 Active verapamiL (VERELAN) 360 mg Sustained Release 24 hour capsule Take 360 mg by mouth daily. 09/07/2023 Active furosemide (LASIX) 20 mg tablet Take 20 mg by mouth daily. Active simvastatin (ZOCOR) 10 mg tablet Take 10 mg by mouth daily with supper. Active cetirizine (ZyrTEC) 10 mg tablet Take 10 mg by mouth daily. Active guar gum (BENEFIBER) Packet Take 1 Packet by mouth daily. Active Saccharomyces boulardii (FLORASTOR) 250 mg Capsule Take by mouth. Active CALCIUM CARBONATE-VITAMI N D3 ORAL Take by mouth. Active MAGNESIUM OXIDE ORAL Take by mouth. Active Active Problems No known active problems Encounters Date Type Department Care Team Description 10/10/2024 External Device Data [facility] ABSTRACTION Provider, Abstract from Last 3 Months Family History Medical History Relation Name Comments No Known Problems Child 1 No Known Problems Child 2 Lung Cancer Father No Known Problems Mother Relation Name Status Comments Child 1 Alive Child 2 Alive Father Mother Sister Alive Social History Tobacco Use Types Packs/Day Years Used Date Smoking Tobacco: Never Smokeless Tobacco: Never Alcohol Use Standard Drinks/Week Comments Yes 0 (1 standard drink = 0.6 oz pur e alcohol) Socially Comments Unknown Sex and Gender Information Value Date Recorded Sex Assigned at Not on file Legal Sex Female 9:16 AM CDT Gender Identity Not on file Sexual Orientation Not on file Last Filed Vital Signs Vital Sign Reading Time Taken Comments Blood Pressure 155/66 04/26/2024 11:02 AM CDT Pulse 62 04/26/2024 11:02 AM CDT Temperature 36.4 C (97.5 F) 04/26/2024 11:02 AM CDT Respiratory Rate 16 04/26/2024 11:02 AM CDT Oxygen Saturation 95% 04/26/2024 11:02 AM CDT Inhaled Oxygen Concentration - - Weight 65.8 kg (145 lb) 04/26/2024 11:02 AM CDT Height 152.4 cm (5') 02/02/2024 10:00 AM CDT Body Mass Index 28.32 02/02/2024 10:00 AM CDT Plan of Treatment Health Maintenance Due Date Last Done Comments DTAP/TDAP/TD VACCINES (1 - Tdap) 1959 PNEUMOCOCCAL VACCINE 50+ YEARS (1 of 1 - PCV) 03/01/19 89 ZOSTER VACCINE (1 of 2) 1989 OSTEOPOROSIS SCREENING 2004 RSV VACCINE (60+ or ) (1 - 1-dose 75+ series) 2014 INFLUENZA VACCINE (#1) 2024 Insurance [facility] [id number] Care Teams Duplicating Machine Mechanic Relationship Specialty Start Date End Date Marija Jasso MD [address] [facility] [place] [id number] PCP - General Family Practice 01/04/24
[2025-01-01 13:55] LABS: Basophils Absolute Auto 0.1 K/mm3 (0.0-0.1); Basophils Percent Auto 0.4 % (0.2-1.2); Eosinophils Absolute Auto 0.3 K/mm3 (0-0.3); Eosinophils Percent Auto 1.9 % (0-4.4); Hematocrit 41.8 % (37.0-47.0); Hemoglobin 13.1 g/dL (12.0-15.0); Immature Granulocyte Absolute 0.19 K/mm3 (0.00-0.031); Immature Granulocyte Percent A 1.4 % (0-0.5); Lymphocytes Absolute Auto 4.76 K/mm3 (0.9-3.2); Lymphocytes Percent Auto 35.4 % (18.3-44.2); Mean Corpuscular HGB Conc 31.3 g/dl (32-36); Mean Corpuscular Hemoglobin 29.7 pg (26-34); Mean Corpuscular Volume 94.8 fl (80-100); Mean Platelet Volume 9.5 fl (7.4-10.4); Monocytes Percent Auto 7.2 % (2.6-8.5); Neutrophils Absolute Auto 7.2 K/mm3 (1.3-6.7); Neutrophils Percent Auto 53.7 % (45.5-73.1); Platelet Count Result 421 k/mm3 (150-375); Red Blood Count 4.41 M/mm3 (4.2-5.4); Red Cell Distribution Width 13.5 % (11.5-14.5); White Blood Count 13.5 K/mm3 (4.5-10.0)
[2025-01-01 17:31] LABS: Alanine Aminotransferase 25 U/L (6-35); Albumin Level 4.9 g/dL (3.5-5.1); Alkaline Phosphatase 65 U/L (38-126); Anion Gap 12 mmol/L (4-12); Aspartate Amino Transferase 46 U/L (14-36); Bilirubin,Total 0.7 mg/dL (0.2-1.3); Blood Urea Nitrogen 21 mg/dL (7-17); Calcium 9.5 mg/dL (8.4-10.2); Carbon Dioxide 26 mmol/L (22-30); Chloride 96 mmol/L (98-107); Cholesterol 209 mg/dL (0-200); Estimated Glomerular Filt Rate > 60; Glucose 81 mg/dL (65-110); HDL Direct 84 mg/dL; LDL Cholesterol Direct 78 mg/dL; Potassium 4.1 mmol/L (3.4-5.0); Sodium 134 mmol/L (137-145); Triglycerides 187 mg/dL (<150)
[2025-01-01 18:21] LABS: Vitamin B12 > 1000.0 pg/mL (239-931)
[2025-01-01 20:09] LABS: Vitamin D 25 Hydroxy 44.9 ng/mL
[2025-01-01 20:23] LABS: Thyroid Stimulating Hormone Reflex 0.931 uIU/mL (0.465-4.68)
[2025-01-01 21:46] LABS: Hemoglobin A1C 5.8 % (<5.7)
== END 2025-01-01 09:53 | disposition home or self-care (01) ==
PROVIDERS: PCP Family Medicine; Visit Provider Family Medicine
DX: R73.9 Hyperglycemia, unspecified (principal); I10 Essential (primary) hypertension; E55.9 Vitamin D deficiency, unspecified; E78.5 Hyperlipidemia, unspecified; K52.831 Collagenous colitis; Z00.00 Encounter for general adult medical examination without abnormal findings; E53.8 Deficiency of other specified B group vitamins
CPT/HCPCS: 36415; 80053; 80061; 82306; 82607; 83036; 84443; 85025

== ENCOUNTER 2025-04-13 09:22 | Outpatient (CLI) | payer MEDICARE, SELFPAY ==
--- OUTSIDE RECORDS SUMMARY | 2010-07-20 19:00 | XMS_ITS | Continuity of Care Document ---
Author Organization [employer] [facility] Address [address] [place] [address] [place] [id number] Phone Care Team Providers Care Back Tender Name Role Phone [facility] [employer] Unavailable Unavail able Cintia Petty Unavailable Unavailable [...] Copied on Encounter [facility], [id number] [place] [address] [address], [place], [place], [id number], [place] tel:[phone] [facility] No Information Nov-2 9-201 0 [facility] . [address] [facility], [address], [place], [place], [address], [place]. tel:[phone] Referring Provider: Abiodun Flores, [address] [facility] [address], [place], [address]. tel:[phone] g Provider: Cintia Petty, [address] [place], [address]. tel:[phone] [facility], [address], [place], [place], [id number], [place] tel:[phone] [facility] No Information Nov-2 4-201 0 Doisy Edcassie. [address], [address], [place], [address], [place]. tel:[phone] [facility], [address] [place] [address] [address], [place], [place], [address], [place] tel:[phone] [facility] No Information Oct-2 6-201 0 [facility] . [address] [facility], [address], [place], [place], [id number], [place]. tel:[phone] Referring Provider: Abiodun Flores, [address], [place], [address]. tel:[phone] g Provider: Cintia Petty, [address] [place], [address]. tel:[phone] [facility], [address], [place], [place], [address], [place] tel:[phone] [facility] No Information Sep-2 9-201 0 Doisy Edcassie. [address] , [address], [place], [address], [place]. tel:[phone] [facility], [address], [place], [place], [address], [place] tel:[phone] [facility] No Information Aug-1 9-200 9 [facility] . [address] [facility], [address], [place], [id number], . tel:[phone] Referring Provider: Abiodun Flores, [address], [place], [address]. tel:[phone] g Provider: Cindy Salgado, [address] [place], [place], [facility]. tel:[phone] [facility], [address], [place], [place], [address], [place] tel:[phone] [facility] No Information Mar- 0-200 9 Doisy Abiodun. [address] [facility] [address] , [address], [place], [address], [place]. tel:[phone] Referring Provider: Abiodun Flores, [address], [place], [address]. tel:[phone] Office/outpat ient Visit, Est [facility], [address], [place], [place], [address], [place] tel:[phone] [facility] No Information Oct-2 0-200 8 [facility]. [facility] , [address], [place], [address], [place]. tel:[phone] [facility], [address], [place], [place], [address], [place] tel:[phone] [facility] No Information Mar-1 3-200 8 [facility] . [address] [facility], [address], [place], [place], [address], [place]. tel:[phone] Referring Provider: Abiodun Flores, [address], [place], [address]. tel:[phone] g Provider: Cindy Salgado, [address] [place], [address]. tel:[phone] [facility], [address], [place], [place], [address], [place] tel:[phone] [facility] No Information 8 Deniz Rascon. [address], [place], [address], [place]. tel:[phone] [facility], [address], [place], [place], [address], [place] tel:[phone] [facility] No Information 7 [facility] . [address] [facility], [address], [place], [place], [address], [place]. tel:[phone] Consulting Provider: Cintia Petty, [address] [place] [address], [address]. tel:[phone] [facility], [address], [place], [place], [address], [place] tel:[phone] [facility] No Information 7 [facility] . [address] [facility], [address], [place], [place], [address], [place]. tel:[phone] Referring Provider: Abiodun Flores, [address], [place], [address]. tel:[phone] g Provider: Cintia Petty, [address] [place], [address]. tel:[phone] [facility], [address], [place], [place], [address], [place] tel:[phone] [facility] No Information 0-200 7 Deniz Rascon. [address] , [address], [place], [address], [place]. tel:[phone] Family History Family Member Type Diagnosis Age At Onset No Information Payers Payer name Insurance type Covered republican ID Authoriza tion(s) No Information Social History [...]
--- NOTE | ~2025-04-13 | DEXA_ITS ---
Bone Density Report Name: MORGAN THOMAS Age: 85 Sex: Female Ethnicity: White Date of : 1940 Indication: osteopenia; height loss; prior fracture; Referring Provider: CHAMP TREVIZO Study: Bone densitometry was performed. Exam Date: April 13, 2025 Accession number: [id number] Bone Density: Region BMD T-score Z-score Classification AP Spine(L1-L4) 0.865 -1.7 1.2 Osteopenia Femoral Neck (Right) 0.602 -2.2 0.3 Osteopenia Total Hip (Right) 0.774 -1.4 1.0 Osteopenia World Health Organization criteria for BMD impression classify patients as: Normal (T-score at or above -1.0), Osteopenia (T-score between -1.0 and -2.5), or Osteoporosis (T-score at or below -2.5). 10-year Fracture Risk: FRAX not reported because: Prior hip or vertebral fracture Previous Exams: Region Exam Age BMD T-score BMD Change BMD Change Date g/cm2 vs Baseline vs Previous AP Spine (L1-L4) 04/13/2025 85 0.865 -1.7 -0.061 (-6.6%) -0.061 (-6.6%) 01/12/2018 77 0.927 -1.1 Total Hip(Right) 04/13/2025 85 0.774 -1.4 -0.075 (-8.9%) -0.063 (-7.5%) 07/24/2021 81 0.837 -0.9 -0.013 (-1.5%) -0.013 (-1.5%) 01/12/2018 77 0.850 -0.8 *Denotes significance at 95% confidence level, LSC for AP Spine = 0.022 g/cm2, LSC for Total Hip = 0.027 g/cm2 Clinical Information Provided by Patient: Have had a previous hip or vertebral fracture Has had a low trauma fracture Has used the following medications: Vitamin D Patient maximum height was 62 Menopause Age: 49 Drinks caffeinated beverages Onset of menses at age 12 Number of children 2 Impression: The patient has low bone mass, based on the Right Femoral Neck T-score. The patient has risk factors, including: previous fracture. The BMD for the AP Spine (L1-L4) decreased, changing by -6.6% since the last DXA exam. The BMD for the Total Hip(Right) decreased, changing by -7.5% since the last DXA exam. Discussion: INCREASED RISK OF FRACTURE DUE TO HISTORY OF FRACTURE. The patient's previous fracture puts the patient at high risk of a future fracture. In untreated patients, the risk of osteoporotic fracture increases approximately two-fold for each 1.0 SD decrease in T-score. Low bone density is not the only risk factor for fracture; also consider factors such as patient's age, frailty or poor health, risk of falling, risk of injury, previous osteoporotic fracture, family history of osteoporosis, cigarette smoking, low body weight, etc. Not everyone with a low trauma fracture has osteoporosis; osteomalacia and other metabolic bone disorders should also be considered. Patients who have osteoporosis should be evaluated for specific diseases and conditions (secondary causes) that may cause or contribute to bone loss and fracture risk. National Osteoporosis Foundation (NOF) recommends pharmacologic intervention for patients with a prior hip or vertebral fracture regardless of BMD T-score. The patient should follow a healthful lifestyle (good nutrition with adequate calcium and vitamin D, and appropriate weight-bearing exercise). Follow-Up: Consider a repeat BMD and Vertebral Fracture Assessment (VFA) exam in 2 years or sooner if medically necessary, to reassess this patient's status. Reported by: GAYLE on 04/13/2025 10:00:00 AM. Reviewed, dictated and finalized at location A.
--- OUTSIDE RECORDS SUMMARY | 2025-04-13 09:25 | XMS_ITS | Clinical Summary ---
Author Organization [facility] Address [address] [place] [address] Care Team Providers Care It Network Administrator Name Role Phone Marija Jasso MD Primary Care Provider Source Comments [facility],non-owned Affiliates and Associated Physician Practices is amultiple site organization consisting of ambulatory clinics and hospital sitesin [place], [place], [place] and [place]. This disclosure is being madepursuant to the Care Everywhere program and may not contain all information available regarding this patient. Last updated 18.[facility] Allergies Active Allergy Reactions Criticality Noted Date [...] on file Legal Sex Female 5:32 PM CARDIOPULMONARY PHYSICAL THERAPIST Gender Identity Not on file Sexual Orientation Not on file Last Filed Vital Signs Vital Sign Reading Time Taken Comments Blood Pressure 134/63 09/22/2023 8:02 AM CARDIOPULMONARY PHYSICAL THERAPIST Pulse 82 09/22/2023 10:25 AM CARDIOPULMONARY PHYSICAL THERAPIST Temperature 36.7 C (98.1 F) 09/22/2023 8:02 AM CARDIOPULMONARY PHYSICAL THERAPIST Respiratory Rate 18 09/22/2023 8:02 AM CARDIOPULMONARY PHYSICAL THERAPIST Oxygen Saturation 93% 09/22/2023 10:25 AM CARDIOPULMONARY PHYSICAL THERAPIST Inhaled Oxygen Concentration - - Weight 59 kg (130 lb) 09/20/2023 4:48 PM CARDIOPULMONARY PHYSICAL THERAPIST Height 152.4 cm (5') 09/20/2023 4:48 PM CARDIOPULMONARY PHYSICAL THERAPIST Body Mass Index 25.39 09/20/2023 4:48 PM CARDIOPULMONARY PHYSICAL THERAPIST Plan of Treatment Upcoming Encounters Date Type Department Care Team (Late st Contact Info) Description 09/14/2025 8:30 AM CARDIOPULMONARY PHYSICAL THERAPIST Office Visit [facility] [address] [place] [address] Angel Rendon MD [address] [facility] [address] [place] [address] Health Maintenance Due Date Last [...] MEDICARE AWV CALENDAR YEAR 2024 INFLUENZA VACCINE (#1) 2025 , 05/19/2022, 04/21/2021, Additional history exists HEPATITIS B [...] this topic Medical Devices Implanted Type Area Hoeing Row Boss Device Identifier Shelf Expiration Date Model / Serial / Lot 3.5mm Non-Locking Screw Implanted:Qty: 1 on 09/20/2023 by Angel Rendon MD at [facility] Right: Shoulder 08/12/2027 [id number] / / [id number] Poly Implanted:Qty: 1 on 09/20/2023 by Angel Rendon MD at [facility] Right: Shoulder 05/09/2028 [id number] / / [id number] Bsplt Glnd Cmprh 25 Mm Mini Shldr Tpr Ad Implanted:Qty: 1 on 09/20/2023 by Angel Rendon MD at [facility] Right: Shoulder [employer] 08/24/2033 [id number] / / [id number] Reverse Shoulder Non-Locking Screw 3.5mm Implanted:Qty: 1 on 09/20/2023 by Angel Rendon MD at [facility] Right: Shoulder 02/04/2033 [id number] / / [id number] Screw 6.5mm 30mm 3.5mm Cntr Hex Shldr Implanted:Qty: 1 on 09/20/2023 by Angel Rendon MD at [facility] Right: Shoulder [employer] 05/22/2033 [id number] / / [id number] Screw 4.75mm 15mm 3.5mm Lck Fx Ang Hex Implanted:Qty: 1 on 09/20/2023 by Angel Rendon MD at [facility] Right: Shoulder [employer] 07/29/2033 [id number] / / [id number] Screw 4.75mm 15mm 3.5mm Lck Fx Ang Hex Implanted:Qty: 1 on 09/20/2023 by Angel Rendon MD at [facility] Right: Shoulder [employer] 06/29/2033 [id number] / / [id number] [place] Sut Jggrknt Mxbrd 2.9mm 2 Ld Sft Implanted:Qty: 1 on 09/20/2023 by Angel Rendon MD at [facility] Right: Shoulder [employer] 02/07/2024 [id number] / / [id number] Humeral Stem Implanted:Qty: 1 on 09/20/2023 by Angel Rendon MD at [facility] Right: Shoulder 06/15/203304-8878-772- [id number] Cmpnt Glnd 36mm Std Glenosphere Clr Cd Implanted:Qty: 1 on 09/20/2023 by Angel Rendon MD at [facility] Right: Shoulder [employer] 02/17/2033 [id number] / / [id number] Explanted Type Area Hoeing Row Boss Device Identifier Shelf Expiration Date Model / Serial / Lot Poly Explanted:Qty: 1 on 09/20/2023 by Angel Rendon MD at [facility] Right: Shoulder 07/21/20284349- [id number] Insurance [facility] MANAGED MEDICARE ADV * Guarantor: MAYA REAVES Account Type Relation to Patient Date of Phone Billing Address Personal/Family [address] [place] [address] SELF PAY NO INSURANCE Member Subscriber Plan / Payer (Ef fective for All Dates) Name:Maya Reaves Member ID:Not on file Relation to Subscriber:Not on file Name:MAYA REAVES Subscriber ID:Not on file Address: [address] [address] Payer ID:Not on file Group ID:Not on file Type:Self Pay Address: [facility] MANAGED MEDICARE ADV * Guarantor: MAYA REAVES Account Type Relation to Patient Date of Phone Billing Address Personal/Family [address] [place] [address] SELF PAY NO INSURANCE Member Subscriber Plan / Payer (Ef fective for All Dates) Name:Lashawn Reaveskavin Flores Member ID:Not on file Relation to Subscriber:Not on file Name:REAVESMAYA Subscriber ID:Not on file Address: [address] [place] [address] Payer ID:Not on file Group ID:Not on file Type:Self Pay Address: [facility] MANAGED MEDICARE ADV * Guarantor: MAYA REAVES Account Type Relation to Patient Date of Phone Billing Address Personal/Family [address] [place] [address] SELF PAY NO INSURANCE Member Subscriber Plan / Payer (Ef fective for All Dates) Name:Maya Reaves Member ID:Not on file Relation to Subscriber:Not on file Name:MAYA REAVES Subscriber ID:Not on file Address: [address] [place] [address] Payer ID:Not on file Group ID:Not on file Type:Self Pay Address: [facility] MANAGED MEDICARE ADV Advance Directives Documents on File Type Date Recorded Patient Building Construction Professor Expl anation Adv Directive/Living Will/POA 09/23/2023 5:30 PM * Full Code (Latest Code Status on File) Date Activated Date Inactivated Comments 09/20/2023 2:22 PM 09/22/2023 1:06 PM Care Teams It Network Administrator Relationship Specialty Start Date End Date Marija Jasso MD [address] [facility] [address] [place] [address] PCP - General Family Medicine 09/10/23
--- OUTSIDE RECORDS SUMMARY | 2025-04-13 09:25 | XMS_ITS | Clinical Summary ---
Author Organization [facility] Address [address] [place] [address] Care Team Providers Care Graining Operator Name Role Phone Marija Jasso MD Primary [...] Encounters Date Type Department Care Team Description 04/10/2025 External Device Data [facility] ABSTRACTION Provider, Abstract 03/07/2025 External Device Data [facility] ABSTRACTION Provider, Abstract 03/07/2025 External Device Data [facility] ABSTRACTION Provider, Abstract 03/07/2025 External Device Data [facility] ABSTRACTION Provider, Abstract 03/06/2025 External Device Data [facility] ABSTRACTION Provider, Abstract 02/07/2025 External Device Data [facility] ABSTRACTION Provider, Abstract 02/06/2025 External Device Data [facility] ABSTRACTION Provider, Abstract 01/11/2025 External Device Data [facility] ABSTRACTION Provider, Abstract [...] 1-dose 75+ series) 2014 INFLUENZA VACCINE (#1) 2025 Insurance [facility] [id number] Care Teams Graining Operator Relationship Specialty Start Date End Date Marija Jasso MD [facility] [facility] [place] [address] PCP - General Family Practice 01/04/24
== END 2025-04-13 09:23 | disposition home or self-care (01) ==
LOC: ANHFOHIMG 09:23
PROVIDERS: PCP Family Medicine; Visit Provider Family Medicine
DX: Z78.0 Asymptomatic menopausal state (principal); M85.88 Other specified disorders of bone density and structure, other site; M85.851 Other specified disorders of bone density and structure, right thigh
CPT/HCPCS: 77080

== ENCOUNTER 2025-07-11 10:21 | Outpatient (CLI) | payer MEDICARE, SELFPAY ==
--- OUTSIDE RECORDS SUMMARY | 2010-07-20 18:00 | XMS_ITS | Continuity of Care Document ---
Author Organization [facility] Address [address] [facility] [address] [place] [address] Phone Care Team Providers Care Frame Pulley Mortising Machine Operator Name Role Phone Optical Shop, SureEximias Pharmaceutical Corporationion Unavailable Unavail able Cintia Petty Unavailable Unavailable Procedures Procedure Date Progressive Lens, Polycarb No Charge Glasses Check Vision Svcs Frames Purchases Progressive Lens, Polycarb Medical Tax Eye Exam & Treatment Dilated Macular Exam Performed 10 Counseling For Antioxidant Supplements S Refraction Progressive Lens Per Lens Frames Deluxe Anti-reflective Coating Tax - Medical Eye Exam & Treatment No Script Refraction Office/outpatient Visit, Est Frames Deluxe Progressive Lens, Polycarb Anti-reflective Coating Tax - Medical Eye Exam & Treatment Refraction Vision Svcs Frames Purchases Progressive Lens, Polycarb Tint Plastic, Non-Madie Tax - Medical Vision Svcs Frames Purchases Progressive Lens, Plastic Anti-reflective Coating Tax - Medical Eye Exam & Treatment Refraction Advance Directives Directive Yes / No Effective Date File Name No Information Encounters Encounter Description Practice Location Reason(s) For Visit Diagnoses Date Provider Providers Copied on Encounter [facility], [address] [place] [address] [address], [place], [place], [address], [place] tel:[phone] [facility] No Information Nov-2 9-201 0 [facility] . [address] [facility], [address], [place], [place], [address], [place]. tel:[phone] Referring Provider: Abiodun Flores, [address], [place], [address]. tel:[phone] g Provider: Cintia Petty, [address] [place], [address]. tel:[phone] [facility], [address], [place], [place], [address], [place] tel:[phone] [facility] No Information Nov-2 4-201 0 Doisy Edcassie. [address], [address], [place], [address], [place]. tel:[phone] [facility], [address] [place] [address] [address], [place], [place], [address], [place] tel:[phone] [facility] No Information Oct-2 6-201 0 [facility] . [address] [facility], [address], [place], [place], [address], [place]. tel:[phone] Referring Provider: Abiodun Flores, [address], [place], [address]. tel:[phone] g Provider: Cintia Petty, [address] [place], [address]. tel:[phone] [facility], [address], [place], [place], [address], [place] tel:[phone] [facility] No Information Sep-2 9-201 0 Doisy Edcassie. [address] , [address], [place], [address], [place]. tel:[phone] [facility], [address], [place], [place], [address], [place] tel:[phone] [facility] No Information Aug-1 9-200 9 [facility] . [address] [facility], [address], [place], [address], . tel:[phone] Referring Provider: Abiodun Flores, [address], [place], [address]. tel:[phone] g Provider: Cindy Salgado, [address] [place], [place], [facility]. tel:[phone] [facility], [address], [place], [place], [address], [place] tel:[phone] [facility] No Information Mar- 0-200 9 Doisy Abiodun. [address] , [address], [place], [address], [place]. tel:[phone] Referring Provider: Abiodun Flores, [address], [place], [address]. tel:[phone] Office/outpat ient Visit, Est [facility], [address], [place], [place], [address], [place] tel:[phone] [facility] No Information Oct-2 0-200 8 [facility]ie. [facility] , [address], [place], [address], [place]. tel:[phone] [facility], [address], [place], [place], [address], [place] tel:[phone] [facility] No Information Mar-1 3-200 8 [facility] . [address] [facility], [address], [place], [place], [address], [place]. tel:[phone] Referring Provider: Abiodun Flores, [address], [place], [address]. tel:[phone] g Provider: Cindy Salgado, [address] [place], [address]. tel:[phone] [facility], [address], [place], [place], [address], [place] tel:[phone] [facility] No Information 8 Deniz Rascon. [address], [address], [place], [address], [place]. tel:[phone] [facility], [address], [place], [place], [address], [place] tel:[phone] [facility] No Information 7 [facility] . [address] [facility], [address], [place], [place], [address], [place]. tel:[phone] Consulting Provider: Cintia Petty, [address] [place] [address], [address]. tel:[phone] [facility], [address], [place], [place], [address], [place] tel:[phone] [facility] No Information 7 [facility] . [address] [facility], [address], [place], [place], [address], [place]. tel:[phone] Referring Provider: Abiodun Flores, [address], [place], [address]. tel:[phone] g Provider: Cintia Petty, [address] [place], [address]. tel:[phone] [facility], [address], [place], [place], [address], [place] tel:[phone] [facility] No Information 0-200 7 Deniz Rascon. [address] , [address], [place], [address], [place]. tel:[phone] Family History Family Member Type Diagnosis Age At Onset No Information Payers Payer name Insurance type Covered green party ID Authoriza tion(s) No Information Social History Type Description Quantity Date Captured Comments Sex Female Smoking Status No Information Chief Complaint And Reason For Visit No Information Reason For Referral Reason For Referral No Information History Of Present Illness Encounter Date Complaint History Of Prese nt Illness No Information Functional Status Date Functional Assessmen t No Information Instructions Date Instruction Additional Infor mation No Information Assessments Type Assessment Date No Information Patient Care Teams Name Effective Dates (start - stop) Status Members No Information
--- OUTSIDE RECORDS SUMMARY | 2010-07-20 18:00 | XMS_ITS | Continuity of Care Document ---
Author Organization [employer] [facility] Address [address] [place] [address] Phone Care Team Providers Care Sports Apparel Internship Name Role Phone Optical Shop, [employer] Unavailable Unavail able Cintia Petty Unavailable Unavailable [...] Diagnoses Date Provider Providers Copied on Encounter [facility], [address] [place] [address] [address], [place], [place], [address], [place] tel:[phone] [facility] No Information Nov-2 9-201 0 [facility] . [address] [facility], [address], [place], [place], [address], [place]. tel:[phone] Referring Provider: Abiodun Flores, [address], [place], [address]. tel:[phone] g Provider: Cintia Petty, [address] [place], [address]. tel:[phone] [facility], [address], [place], [place], [address], [place] tel:[phone] [facility] No Information Nov-2 4-201 0 Doisy Edcassie. [address] [facility] [address], [address], [place], [address], [place]. tel:[phone] [facility], [address] [place] [address] [address], [place], [place], [address], [place] tel:[phone] [facility] No Information Oct-2 6-201 0 [facility] . [address] [facility], [address], [place], [place], [address], [place]. tel:[phone] Referring Provider: Abiodun Flores, [address], [place], [address]. tel:[phone] g Provider: Cintia Petty, [address] [place], [address]. tel:[phone] [facility], [address], [place], [place], [address], [place] tel:[phone] [facility] No Information Sep-2 9-201 0 Doisy Edcassie. [address] , [address], [place], [address], [place]. tel:[phone] [facility], [address], [place], [place], [address], [place] tel:[phone] [facility] No Information Aug-1 9-200 9 [facility] . [address] [facility], [address], [place], [address], . tel:[phone] Referring Provider: Abiodun Flores, [address], [place], [address]. tel:[phone] g Provider: Cidny Salgado, [address] [place], [place], [facility]. tel:[phone] [facility], [address], [place], [place], [address], [place] tel:[phone] [facility] No Information Mar- 0-200 9 Doisy Abiodun. [address] , [address], [place], [address], [place]. tel:[phone] Referring Provider: Abiodun Flores, [address], [place], [address]. tel:[phone] Office/outpat ient Visit, Est [facility], [address], [place], [place], [address], [place] tel:[phone] [facility] No Information Oct-2 0-200 8 Doisy Edcassie. [facility] [address] [facility] [facility] , [address], [place], [address], [place]. tel:[phone] [facility], [address], [place], [place], [address], [place] tel:[phone] [facility] No Information Mar-1 3-200 8 [facility] . [address] [facility], [address], [place], [place], [address], [place]. tel:[phone] Referring Provider: Abiodun Flores, [address], [place], [address]. tel:[phone] g Provider: Cindy Salgado, [address] [place], [address]. tel:[phone] [facility], [address], [place], [place], [address], [place] tel:[phone] [facility] No Information 8 Deinz Rascon. [address], [address], [place], [address], [place]. tel:[phone] [facility], [address], [place], [place], [address], [place] tel:[phone] [facility] No Information 7 [facility] . [address] [facility], [address], [place], [place], [address], [place]. tel:[phone] Consulting Provider: Cintia Petty, [address] [place] [address], [address]. tel:[phone] [facility], [address], [place], [place], [address], [place] tel:[phone] [facility] No Information 7 [facility] . [address] [facility], [address], [place], [place], [address], [place]. tel:[phone] Referring Provider: Abiodun Flores, [address], [place], [address]. tel:[phone] g Provider: Cintia Petty, [address] [place], [address]. tel:[phone] [facility], [address], [place], [place], [address], [place] tel:[phone] [facility] No Information 0-200 7 Deniz Rascon. [address] , [address], [place], [address], [place]. tel:[phone] Family History Family Member Type Diagnosis Age At Onset No Information Payers Payer name Insurance type Covered alliance party ID Authoriza tion(s) No Information Social [...]
--- OUTSIDE RECORDS SUMMARY | 2010-07-20 18:00 | XMS_ITS | Continuity of Care Document ---
Author Organization [employer] [facility] Address [address] [place] [phone] Phone Care Team Providers Care Photography Assistant Name Role Phone Optical Shop, [facility] Unavailable Unavail able Cintia Petty Unavailable Unavailable [...] Provider Providers Copied on Encounter [facility], [address] [place] [address] [address], [place], [place], [address], [place] tel:[phone] [facility] No Information Nov-2 9-201 0 [facility] . [address] [facility], [address], [place], [place], [address], [place]. tel:[phone] Referring Provider: Abiodun Flores, [address], [place], [address]. tel:[phone] g Provider: Cintia Petty, [address] [place], [address]. tel:[phone] [facility], [address], [place], [place], [address], [place] tel:[phone] [facility] No Information Nov-2 4-201 0 Doisy Edcassie. [address] [facility] [address], [address], [place], [address], [place]. tel:[phone] [facility], [address] [place] [address] [address], [place], [place], [address], [place] tel:[phone] [facility] No Information Oct-2 6-201 0 [facility] . [address] [facility], [address], [place], [place], [address], [place]. tel:[phone] Referring Provider: Abiodun Flores, [address], [place], [address]. tel:[phone] g Provider: Cintia Petty, [address] [place], [address]. tel:[phone] [facility], [address], [place], [place], [address], [place] tel:[phone] [facility] No Information Sep-2 9-201 0 Doisy Edcassie. [address] , [address], [place], [address], [place]. tel:[phone] [facility], [address], [place], [place], [address], [place] tel:[phone] [facility] No Information Aug-1 9-200 9 [facility] . [address] [facility], [address], [place], [address], . tel:[phone] Referring Provider: Abiodun Flores, [address], [place], [address]. tel:[phone] g Provider: Cindy Salgado, [address] [place], [place], [facility]. tel:[phone] [facility], [address], [place], [place], [address], [place] tel:[phone] [facility] No Information Mar- 0-200 9 Doisy Abiodun. [address] [facility] [address] , [address], [place], [address], [place]. tel:[phone] Referring Provider: Abiodun Flores, [address], [place], [address]. tel:[phone] Office/outpat ient Visit, Est [facility], [address], [place], [place], [address], [place] tel:[phone] [facility] No Information Oct-2 0-200 8 Doisy Edcassie. [facility] , [address], [place], [address], [place]. tel:[phone] [facility], [address], [place], [place], [address], [place] tel:[phone] [facility] No Information Mar-1 3-200 8 [facility] . [address] [facility], [address], [place], [place], [address], [place]. tel:[phone] Referring Provider: Abiodun Flores, [address], [place], [address]. tel:[phone] g Provider: Cindy Salgado, [address] [place], [address]. tel:[phone] [facility], [address], [place], [place], [address], [place] tel:[phone] [facility] No Information 8 Deniz Rascon. [address], [address], [place], [address], [place]. tel:[phone] [facility], [address], [place], [place], [address], [place] tel:[phone] [facility] No Information 7 [facility] . [address] [facility], [address], [place], [place], [address], [place]. tel:[phone] Consulting Provider: Cintia Petty, [address] [place] [address], [address]. tel:[phone] [facility], [address], [place], [place], [address], [place] tel:[phone] [facility] No Information 7 [facility] . [address] [facility], [address], [place], [place], [address], [place]. tel:[phone] Referring Provider: Abiodun Flores, [address], [place], [address]. tel:[phone] g Provider: Cintia Petty, [address] [place], [address]. tel:[phone] [facility], [address], [place], [place], [address], [place] tel:[phone] [facility] No Information 0-200 7 Deniz Rascon. [address] , [address], [place], [address], [place]. tel:[phone] Family History Family Member Type Diagnosis Age At Onset No Information Payers Payer name Insurance type Covered constitution party ID Authoriza tion(s) No Information Social [...]
[2025-07-11 13:07] LABS: Hematocrit 40.5 % (37.0-47.0); Hemoglobin 13.2 g/dL (12.0-15.0); Immature Granulocyte Percent A 2.1 % (0-0.5); Lymphocytes Absolute Auto 3.87 K/mm3 (0.9-3.2); Mean Corpuscular HGB Conc 32.6 g/dl (32-36); Mean Corpuscular Hemoglobin 30.3 pg (26-34); Mean Corpuscular Volume 92.9 fl (80-100); Nucleated Red Blood Cells Absolute Auto 0.000 K/mm3 (0.0-0.012); Nucleated Red Blood Cells Perc 0.0 % (0.0-0.2); Platelet Count Result 405 k/mm3 (150-375); Red Blood Count 4.36 M/mm3 (4.2-5.4); White Blood Count 14.4 K/mm3 (4.5-10.0)
[2025-07-11 15:17] LABS: Alanine Aminotransferase 18 U/L (6-35); Albumin Level 4.8 g/dL (3.5-5.1); Alkaline Phosphatase 57 U/L (38-126); Anion Gap 9 mmol/L (4-12); Aspartate Amino Transferase 44 U/L (14-36); Bilirubin,Total 0.7 mg/dL (0.2-1.3); Blood Urea Nitrogen 19 mg/dL (7-17); Calcium 9.3 mg/dL (8.4-10.2); Carbon Dioxide 27 mmol/L (22-30); Chloride 92 mmol/L (98-107); Estimated Glomerular Filt Rate > 60; Glucose 92 mg/dL (65-110); Potassium 3.9 mmol/L (3.4-5.0); Sodium 128 mmol/L (137-145); Total Protein 7.8 g/dL (6.3-8.2)
[2025-07-11 18:51] LABS: Hemoglobin A1C 6.0 % (<5.7)
== END 2025-07-11 10:22 | disposition home or self-care (01) ==
LOC: ANHGOSHLAB 10:22
PROVIDERS: PCP Family Medicine; Visit Provider Family Medicine
DX: R73.03 Prediabetes (principal); I10 Essential (primary) hypertension; Z79.899 Other long term (current) drug therapy
CPT/HCPCS: 36415; 80053; 83036; 85025

== ENCOUNTER 2025-07-23 08:38 | Outpatient (CLI) | payer MEDICARE, SELFPAY ==
--- OUTSIDE RECORDS SUMMARY | 2025-07-23 08:59 | XMS_ITS | Clinical Summary ---
Author Organization [facility] Frequency Address [address] [place] [address] Care Team Providers Care Aeronautical Products Sales Engineer Name Role Phone Mraija Jasso MD Primary Care Provider Source Comments [facility],non-owned Affiliates and Associated Physician Practices is amultiple site organization consisting of ambulatory clinics and hospital sitesin [place], [place], [place] and [place]. This disclosure is being madepursuant to the Care Everywhere program and may not contain all information available regarding this patient. Last updated 18.[facility] Allergies Active Allergy Reactions Criticality Noted Date [...] on file Legal Sex Female 5:32 PM MAC ARTIST Gender Identity Not on file Sexual Orientation Not on file Last Filed Vital Signs Vital Sign Reading Time Taken Comments Blood Pressure 134/63 09/22/2023 8:02 AM MAC ARTIST Pulse 82 09/22/2023 10:25 AM MAC ARTIST Temperature 36.7 C (98.1 F) 09/22/2023 8:02 AM MAC ARTIST Respiratory Rate 18 09/22/2023 8:02 AM MAC ARTIST Oxygen Saturation 93% 09/22/2023 10:25 AM MAC ARTIST Inhaled Oxygen Concentration - - Weight 59 kg (130 lb) 09/20/2023 4:48 PM MAC ARTIST Height 152.4 cm (5') 09/20/2023 4:48 PM MAC ARTIST Body Mass Index 25.39 09/20/2023 4:48 PM MAC ARTIST Plan of Treatment Upcoming Encounters Date Type Department Care Team (Late st Contact Info) Description 09/14/2025 8:30 AM MAC ARTIST Office Visit [facility] [address] [facility] [place] [address] Angel Rendon MD [address] [facility] [address] [place] [address] Health Maintenance Due Date Last Done Comments BONE DENSITY TESTING 1939 DTAP/TDAP/TD VACCINES (1 - Tdap) 1958 PNEUMOCOCCAL VACCINE 50+ (1 of 1 - PCV) 1989 ZOSTER VACCINE (1 of 2) 1989 Respiratory Syncytial Virus (RSV) Vaccine Pt: or over 60 yrs (1 - 1-dose 75+ series) 2014 DEPRESSION SCREENING 08/23/2024 MEDICARE AWV CALENDAR YEAR 2024 COVID-19 VACCINE ( season) 2025 06/10/2022, 07/08/2021, 11/04/2020, Additional history exists INFLUENZA VACCINE (#1) 2025 , 05/19/2022, 04/21/2021, [...] this topic Medical Devices Implanted Type Area Figure Skater Device Identifier Shelf Expiration Date Model / Serial / Lot 3.5mm Non-Locking Screw Implanted:Qty: 1 on 09/20/2023 by Angel Rendon MD at [facility] Right: Shoulder 08/12/2027 [id number] / / [id number] Poly Implanted:Qty: 1 on 09/20/2023 by Angel Rendon MD at [facility] Right: Shoulder 05/09/2028 [id number] / / [id number] Bsplt Glnd Cmprh 25 Mm Mini Shldr Tpr Ad Implanted:Qty: 1 on 09/20/2023 by Angel Rendon MD at [facility] Right: Shoulder [employer] 08/24/2033 [id number] / / [id number] Reverse Shoulder Non-Locking Screw 3.5mm Implanted:Qty: 1 on 09/20/2023 by Angel Rendon MD at [facility] Right: Shoulder 02/04/2033 [id number] / / [id number] Screw 6.5mm 30mm 3.5mm Cntr Hex Shldr Implanted:Qty: 1 on 09/20/2023 by Angel Rendon MD at [facility] Right: Shoulder [employer] 05/22/2033 [id number] / / [id number] Screw 4.75mm 15mm 3.5mm Lck Fx Ang Hex Implanted:Qty: 1 on 09/20/2023 by Angel Rendon MD at [facility] Right: Shoulder [employer] 07/29/2033 [id number] / / [id number] Screw 4.75mm 15mm 3.5mm Lck Fx Ang Hex Implanted:Qty: 1 on 09/20/2023 by Angel Rendon MD at [facility] Right: Shoulder [employer] 06/29/2033 [id number] / / [id number] [place] Sut Jggrknt Mxbrd 2.9mm 2 Ld Sft Implanted:Qty: 1 on 09/20/2023 by Angel Rendon MD at [facility] Right: Shoulder [employer] 02/07/2024 [id number] / / [id number] Humeral Stem Implanted:Qty: 1 on 09/20/2023 by Angel Rendon MD at [facility] Right: Shoulder 06/15/203382-2449-345- [id number] Cmpnt Glnd 36mm Std Glenosphere Clr Cd Implanted:Qty: 1 on 09/20/2023 by Angel Rendon MD at [facility] Right: Shoulder [employer] 02/17/2033 [id number] / / [id number] Explanted Type Area Figure Skater Device Identifier Shelf Expiration Date Model / Serial / Lot Poly Explanted:Qty: 1 on 09/20/2023 by Angel Rendon MD at [facility] Right: Shoulder 07/21/20284349- [id number] Insurance [facility] MANAGED MEDICARE ADV * Guarantor: MAYA REAVES Account Type Relation to Patient Date of Phone Billing Address Personal/Family [address] [place] [address] SELF PAY NO INSURANCE Member Subscriber Plan / Payer (Ef fective for All Dates) Name:Maya Reaves Member ID:Not on file Relation to Subscriber:Not on file Name:MAYA REAVES Subscriber ID:Not on file Address: [address] [place] [address] Payer ID:Not on file Group ID:Not on file Type:Self Pay Address: [facility] MANAGED MEDICARE ADV * Guarantor: MAYA REAVES Account Type Relation to Patient Date of Phone Billing Address Personal/Family [address] [place] [address] SELF PAY NO INSURANCE Member Subscriber Plan / Payer (Ef fective for All Dates) Name:Lashawn Reaveskavin Flores Member ID:Not on file Relation to Subscriber:Not on file Name:REAVESMAYA Subscriber ID:Not on file Address: [address] [place] [address] Payer ID:Not on file Group ID:Not on file Type:Self Pay Address: [facility] MANAGED MEDICARE ADV * Guarantor: MAYA REAVES Account Type Relation to Patient Date of Phone Billing Address Personal/Family [address] [place] [address] SELF PAY NO INSURANCE Member Subscriber Plan / Payer (Ef fective for All Dates) Name:Maya Reaves Member ID:Not on file Relation to Subscriber:Not on file Name:MAYA REAVES Subscriber ID:Not on file Address: [address] [place] [address] Payer ID:Not on file Group ID:Not on file Type:Self Pay Address: [facility] MANAGED MEDICARE ADV Advance Directives Documents on File Type Date Recorded Patient Pillow Agent Expl anation Adv Directive/Living Will/POA 09/23/2023 5:30 PM * Full Code (Latest Code Status on File) Date Activated Date Inactivated Comments 09/20/2023 2:22 PM 09/22/2023 1:06 PM Care Teams Aeronautical Products Sales Engineer Relationship Specialty Start Date End Date Marija Jasso MD [address] [place] [address] [place] [address] PCP - General Family Medicine 09/10/23
--- OUTSIDE RECORDS SUMMARY | 2025-07-23 08:59 | XMS_ITS | Clinical Summary ---
[facility] Address [address] [place] [address] Care Team Providers Care Artificial Log Machine Operator Name Role Phone Marija Jasso MD [...] Encounters Date Type Department Care Team Description 04/24/2025 External Device Data STL ABSTRACTION Provider, Abstract [...] series) 2014 INFLUENZA VACCINE (#1) 2025 Insurance [facility] [id number] Care Teams Artificial Log Machine Operator Relationship Specialty Start Date End Date Marija Jasso MD [address] [facility] [address] [place] [address] PCP - General Family Practice 01/04/24
[2025-07-23 19:44] LABS: Anion Gap 5 mmol/L (4-12); Blood Urea Nitrogen 19 mg/dL (7-17); Calcium 9.3 mg/dL (8.4-10.2); Carbon Dioxide 28 mmol/L (22-30); Chloride 97 mmol/L (98-107); Estimated Glomerular Filt Rate > 60; Glucose 75 mg/dL (65-110); Potassium 4.1 mmol/L (3.4-5.0); Sodium 130 mmol/L (137-145)
== END 2025-07-23 08:39 | disposition home or self-care (01) ==
PROVIDERS: PCP Family Medicine; Visit Provider Family Medicine
DX: E87.1 Hypo-osmolality and hyponatremia (principal)
CPT/HCPCS: 36415; 80048

== ENCOUNTER 2025-08-10 08:46 | Outpatient (CLI) | payer MEDICARE, SELFPAY ==
--- OUTSIDE RECORDS SUMMARY | 2025-08-10 08:54 | XMS_ITS | Clinical Summary ---
Author Organization [facility] Address [address] [place] [address] Care Team Providers Care Formula Weigher Name Role Phone Marija Jasso MD Primary [...] Active Active Problems No known active problems Family History Medical History Relation Name Comments [...] series) 2014 INFLUENZA VACCINE (#1) 2025 Insurance [facility] [id number] Care Teams Formula Weigher Relationship Specialty Start Date End Date Marija Jasso MD [address] [place] [address] [place] [address] PCP - General Family Practice 01/04/24
--- OUTSIDE RECORDS SUMMARY | 2025-08-10 08:54 | XMS_ITS | Clinical Summary ---
Author Organization [facility] Address [address] [place] [address] Care Team Providers Care Patient Intake Coordinator Name Role Phone Marija Jasso MD Primary Care Provider Source Comments [facility],non-owned Affiliates and Associated Physician Practices is amultiple site organization consisting of ambulatory clinics and hospital sitesin [place], [place], [place] and [place]. This disclosure is being madepursuant to the Care Everywhere program and may not contain all information available regarding this patient. 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 Gender Identity Not on file Sexual Orientation Not on file Last Filed Vital Signs Vital Sign Reading Time Taken Comments Blood Pressure 134/63 09/22/2023 8:02 AM CALENDER ROLL OPERATOR Pulse 82 09/22/2023 10:25 AM CALENDER ROLL OPERATOR Temperature 36.7 C (98.1 F) 09/22/2023 8:02 AM CALENDER ROLL OPERATOR Respiratory Rate 18 09/22/2023 8:02 AM CALENDER ROLL OPERATOR Oxygen Saturation 93% 09/22/2023 10:25 AM CALENDER ROLL OPERATOR Inhaled Oxygen Concentration - - Weight 59 kg (130 lb) 09/20/2023 4:48 PM CALENDER ROLL OPERATOR Height 152.4 cm (5') 09/20/2023 4:48 PM CALENDER ROLL OPERATOR Body Mass Index 25.39 09/20/2023 4:48 PM CALENDER ROLL OPERATOR Plan of Treatment Upcoming Encounters Date Type Department Care Team (Late st Contact Info) Description 09/14/2025 8:30 AM CALENDER ROLL OPERATOR Office Visit [facility] [address] [facility] [place] [address] Angel Rendon MD [address] [address] Health Maintenance Due Date Last Done [...] this topic Medical Devices Implanted Type Area Director Of Retail Device Identifier Shelf Expiration Date Model / Serial / Lot 3.5mm Non-Locking Screw Implanted:Qty: 1 on 09/20/2023 by Angel Rendon MD at [facility] Right: Shoulder 08/12/2027 [id number] / / [id number] Poly Implanted:Qty: 1 on 09/20/2023 by Angel Rendon MD at [facility] Right: Shoulder 05/09/2028 [id number] / / [id number] Bsplt Glnd Cmprh 25 Mm Mini Shldr Tpr Ad Implanted:Qty: 1 on 09/20/2023 by Angel Rendon MD at [facility] Right: Shoulder [employer] 08/24/2033 [id number] / / [id number] Reverse Shoulder Non-Locking Screw 3.5mm Implanted:Qty: 1 on 09/20/2023 by Angel Rendon MD at [facility] Right: Shoulder 02/04/2033 [id number] / / [id number] Screw 6.5mm 30mm 3.5mm Cntr Hex Shldr Implanted:Qty: 1 on 09/20/2023 by Angel Rendon MD at [facility] Right: Shoulder [employer] 05/22/2033 [id number] / / [id number] Screw 4.75mm 15mm 3.5mm Lck Fx Ang Hex Implanted:Qty: 1 on 09/20/2023 by Angel Rendon MD at [facility] Right: Shoulder [employer] 07/29/2033 [id number] / / [id number] Screw 4.75mm 15mm 3.5mm Lck Fx Ang Hex Implanted:Qty: 1 on 09/20/2023 by Angel Rendon MD at [facility] Right: Shoulder [employer] 06/29/2033 [id number] / / [id number] [place] Sut Jggrknt Mxbrd 2.9mm 2 Ld Sft Implanted:Qty: 1 on 09/20/2023 by Angel Rendon MD at [facility] Right: Shoulder [employer] 02/07/2024 [id number] / / [id number] Humeral Stem Implanted:Qty: 1 on 09/20/2023 by Angel Rendon MD at [facility] Right: Shoulder 06/15/203353-9563-369- 13 / / [id number] Cmpnt Glnd 36mm Std Glenosphere Clr Cd Implanted:Qty: 1 on 09/20/2023 by Angel Rendon MD at [facility] Right: Shoulder [employer] 02/17/2033 [id number] / / [id number] Explanted Type Area Director Of Retail Device Identifier Shelf Expiration Date Model / Serial / Lot Poly Explanted:Qty: 1 on 09/20/2023 by Angel Rendon MD at [facility] Right: Shoulder 07/21/20284349-03 6- / / [id number] Insurance [facility] MEDICARE ADV * Guarantor: MAYA REAVES Account Type Relation to Patient Date of Phone Billing Address Personal/Family [address] [place] [address] SELF PAY NO INSURANCE Member Subscriber Plan / Payer (Ef fective for All Dates) Name:Maya Reaves Member ID:Not on file Relation to Subscriber:Not on file Name:MAYA REAVES Subscriber ID:Not on file Address: [address] [place] [address] Payer ID:Not on file Group ID:Not on file Type:Self Pay Address: [facility] MEDICARE ADV * Guarantor: MAYA REAVES Account Type Relation to Patient Date of Phone Billing Address Personal/Family [address] [address] SELF PAY NO INSURANCE Member Subscriber Plan / Payer (Ef fective for All Dates) Name:ReavesMaya Member ID:Not on file Relation to Subscriber:Not on file Name:JOSE REAVESSY Subscriber ID:Not on file Address: [address] [place] [address] Payer ID:Not on file Group ID:Not on file Type:Self Pay Address: [facility] MEDICARE ADV * Guarantor: MAYA REAVES Account Type Relation to Patient Date of Phone Billing Address Personal/Family [address] [place] [address] SELF PAY NO INSURANCE Member Subscriber Plan / Payer (Ef fective for All Dates) Name:Maya Reaves Member ID:Not on file Relation to Subscriber:Not on file Name:MAYA REAVES Subscriber ID:Not on file Address: [address] [place] [address] Payer ID:Not on file Group ID:Not on file Type:Self Pay Address: [place] [employer] MANAGED MEDICARE ADV Advance Directives Documents on File Type Date Recorded Patient Still Cleaner Tube Expl anation Adv Directive/Living Will/POA 09/23/2023 5:30 PM * Full Code (Latest Code Status on File) Date Activated Date Inactivated Comments 09/20/2023 2:22 PM 09/22/2023 1:06 PM Care Teams Patient Intake Coordinator Relationship Specialty Start Date End Date Marija Jasso MD [address] [facility] [address] [address] PCP - General Family Medicine 09/10/23
[2025-08-10 13:07] LABS: Alanine Aminotransferase 18 U/L (6-35); Albumin Level 4.3 g/dL (3.5-5.1); Alkaline Phosphatase 48 U/L (38-126); Anion Gap 8 mmol/L (4-12); Aspartate Amino Transferase 49 U/L (14-36); Bilirubin,Total 0.4 mg/dL (0.2-1.3); Blood Urea Nitrogen 19 mg/dL (7-17); Calcium 9.2 mg/dL (8.4-10.2); Carbon Dioxide 28 mmol/L (22-30); Chloride 100 mmol/L (98-107); Estimated Glomerular Filt Rate > 60; Glucose 80 mg/dL (65-110); Potassium 4.5 mmol/L (3.4-5.0); Sodium 136 mmol/L (137-145); Total Protein 7.3 g/dL (6.3-8.2)
== END 2025-08-10 08:47 | disposition home or self-care (01) ==
PROVIDERS: PCP Family Medicine; Visit Provider Family Medicine
DX: E87.1 Hypo-osmolality and hyponatremia (principal); I10 Essential (primary) hypertension
CPT/HCPCS: 36415; 80053